=== PATIENT | female | born 1965 | race Caucasian/White ===

== ENCOUNTER 2019-03-26 17:59 | Emergency (ER) | payer MEDICAID ==
--- NOTE | 2019-03-26 18:27 | EDM.PDOC ---
ED HPI GENERAL MEDICAL PROBLEM - General Chief Complaint: Skin Complaint Stated Complaint: FALL- SENT BY [facility] Time Seen by Provider: 03/26/19 18:16 - History of Present Illness INITIAL COMMENTS - FREE TEXT/NARRATIVE: 53-year-old patient sent over from the [facility] with concerns of an abscess developing again over her left elbow in the area of the olecranon bursa. Patient has been developing this over the last couple of weeks. She is using her elbow without difficulty normal flexion extension and supination pronation. She has not had any significant warmth or redness to the area but has noticed increased swelling. She had an abscessed bursa in this area this last December that was I&Ded by Dr. Tadeo. At that point it was much bigger developed much quicker she had significant redness and warmth over the area according to the patient. The patient was seen over at the [facility] surgery clinic by Estela Hayes NP who thought it might be a recurrence of the abscess and requested we take a look at it as she did not have any help at the surgery clinic. The case was discussed with myself and with Dr. Damian our on-call surgeon. The patient presented to the emergency room but it took her some time to get here from the [facility] as the patient did fall and bump her knees she had x- ray evaluation and is not having any problems with this. Left Elbow Pain Score (Numeric/FACES): 7 - Related Data Allergies Allergy/AdvReac Type Severity Reaction Status Date / Time amoxicillin [From Augmentin] Allergy Rash Verified 03/26/19 18:16 castor oil Allergy Anaphylactic Verified 03/26/19 18:16 Shock clavulanic acid Allergy Rash Verified 03/26/19 18:16 [From Augmentin] levofloxacin [From Levaquin] Allergy Rash Verified 03/26/19 18:16 losartan Allergy Rash Verified 03/26/19 18:16 Penicillins Allergy Rash Verified 03/26/19 18:16 povidone-iodine Allergy Cannot Verified 03/26/19 18:16 Remember warfarin [From Coumadin] Allergy Rash Verified 03/26/19 18:16 Home Meds: Home Meds Acetaminophen [Tylenol Extra Strength] 500 mg PO Q6H PRN 03/26/19 [History] Acetaminophen [Tylenol] 325 mg PO Q4H PRN 03/26/19 [History] Cetirizine [ZyrTEC] 10 mg PO DAILY 03/26/19 [History] Clotrimazole [Clotrimazole 1%] 1 applic TOP DAILY 03/26/19 [History] Ferrous Fumarate/Vitamin C [Vitron-C] 1 tab PO DAILY 03/26/19 [History] Fluticasone Propionate [Flonase] 1 spray LINCOLN BID PRN 03/26/19 [History] Furosemide [Lasix] 40 mg PO BID 03/26/19 [History] Metoprolol Succinate [Toprol Xl] 50 mg PO DAILY 03/26/19 [History] Naproxen [Naprosyn] 500 mg PO Q12H #14 tablet 03/26/19 [Rx] Nystatin [Nyata] 1 applic TOP DAILY 03/26/19 [History] Pantoprazole [ProTONIX] 40 mg PO DAILY 03/26/19 [History] Phenylephrine HCl [Suphedrine PE] 10 mg PO DAILY 03/26/19 [History] Potassium Chloride 20 meq PO DAILY 03/26/19 [History] Ranitidine [Zantac] 150 mg PO DAILY 03/26/19 [History] Spironolactone [Aldactone] 100 mg PO DAILY 03/26/19 [History] amLODIPine [Norvasc] 10 mg PO DAILY 03/26/19 [History] traMADol HCl [Tramadol HCl] 50 mg PO TID PRN 03/26/19 [History] Past Medical History HEENT History: Reports: Impaired Vision Cardiovascular History: Reports: Hypertension Respiratory History: Reports: Other (See Below) Other Respiratory History: lung cancer Gastrointestinal History: Reports: GERD Genitourinary History: Reports: Other (See Below) Other Genitourinary History: ovarian cancer Musculoskeletal History: Reports: Arthritis Oncologic (Cancer) History: Reports: Lung, Ovarian Dermatologic History: Reports: Venous Stasis Dermatitis Social & Family History - Tobacco Use Smoking Status *Q: Never Smoker - Caffeine Use Caffeine Use: Reports: Soda - Recreational Drug Use Recreational Drug Use: No ED ROS GENERAL - Review of Systems Review Of Systems: See Below Constitutional: Reports: No Symptoms. Denies: Fever, Chills Respiratory: Reports: No Symptoms Cardiovascular: Reports: No Symptoms GI/Abdominal: Reports: No Symptoms : Reports: No Symptoms ED EXAM, SKIN/RASH Exam: See Below General Appearance: Alert, No Apparent Distress Head: Atraumatic, Normocephalic Neck: Normal Inspection, Supple, Non-Tender, Full Range of Motion Respiratory/Chest: No Respiratory Distress, Lungs Clear, Normal Breath Sounds Cardiovascular: Regular Rate, Rhythm, No Murmur Extremities: Other (Examination of her left elbow shows good nontender full flexion and extension of the elbow joint supination and pronation is normal she has a soft tissue swelling on the posterior proximal aspect that may involve the olecranon bursa. Palpation of the area does not reveal much warmth minimal redness she's got an area of irritation at the distal prior incision site the patient denies much drainage from there. Upon my palpation palpates very much like a seroma. There may be a septation along the course of the prior incision) Course - Vital Signs Last Recorded V/S: Last Vital Signs Temp 36.8 C 03/26/19 18:08 Pulse 76 03/26/19 18:08 Resp 22 H 03/26/19 18:08 BP 165/92 H 03/26/19 18:08 Pulse Ox 100 03/26/19 18:08 - Re-Assessments/Exams Free Text/Narrative Re-Assessment/Exam: 03/26/19 19:05 X-rays from [facility] reviewed. Upon my evaluation I'm not convinced this is an abscess. Did consider a brief needle aspirate however this is olecranon bursa that can increase the risk of infection about that time Dr. Damian did come by the emergency room and looked at this and is certain this is a seroma and recommends conservative treatment. I did discuss this with the patient and she is comfortable with this and agrees to return immediately to the emergency room if this gets worse she develops any fevers this developed significant redness or warmth to the area. We applied a loose fitting Aleks wrap to the area for gentle pressure and the patient will adjust this as needed. Departure - Departure Time of Disposition: 18:47 Disposition: Home, Self-Care 01 Clinical Impression: Seroma - Discharge Information Prescriptions: Naproxen [Naprosyn] 500 mg PO Q12H #14 tablet Referrals: Francy Kam MD [Primary Care Provider] - Forms: ED Department Discharge Additional Instructions: Return to emergency room if any questions or problems. Return if this is getting worse or if you develop fevers or if you develop significant redness in the area. Take the Naprosyn one twice daily with your morning and evening meal. Follow-up with your regular provider early next week for recheck. Apply gentle pressure to the area with the Aleks wrap. Keep a Band-Aid over the irritated area.
[2019-03-26] MEDS ORDERED: Naproxen 500 MG Tab PO STA (18:50)
== END 2019-03-26 19:00 | disposition home or self-care (01) ==
LOC: JD.ED 17:59
DX: L76.34 Postprocedural seroma of skin and subcutaneous tissue following other procedure (principal); I10 Essential (primary) hypertension; K21.9 Gastro-esophageal reflux disease without esophagitis; Z88.1 Allergy status to other antibiotic agents; Z91.018 Allergy to other foods; Z88.0 Allergy status to penicillin; Z88.8 Allergy status to other drugs, medicaments and biological substances; Z79.899 Other long term (current) drug therapy
CPT/HCPCS: 99283; A9270

== ENCOUNTER 2020-06-30 14:00 | Emergency (ER) | payer MEDICARE, MEDICAID ==
--- NOTE | 2020-06-30 15:14 | EDM.PDOC ---
ED HPI GENERAL MEDICAL PROBLEM - General Chief Complaint: Allergic Reaction Stated Complaint: POSS ALLERGIC REACTION/L LEG SKIN COMPLAINT Time Seen by Provider: 06/30/20 15:14 - History of Present Illness INITIAL COMMENTS - FREE TEXT/NARRATIVE: 54-year-old female presents the emergency room with rash suspected to be secondary to an antibiotic she is taking. Patient is taking Bactrim for cellulitis in her left lower leg. Cellulitis starting to improve but was slow to improve on the Bactrim. For today's day 10 of the antibiotics. Today she awoke and was covered with a rash this was not a urticarial rash but more of a fixed rash. It does not seem to itch a whole lot or cause her any distress she is not having any pain per se anywhere just her cellulitis is not getting any better. Having any chills she is not having any breathing difficulties or shortness of breath. She is just has the rash and a cellulitis that is slow to improve. The patient is about 10 years cancer free after chemo. During this time she did develop a left knee infection after deteriorating her left knee. It was determined she would not be a candidate for left knee replacement she has had a lot of problems with this leg ever since. Left Leg Pain Score (Numeric/FACES): 5 - Related Data Allergies Allergy/AdvReac Type Severity Reaction Status Date / Time amoxicillin [From Augmentin] Allergy Severe Rash Verified 06/30/20 14:18 castor oil Allergy Severe Anaphylactic Verified 06/30/20 14:18 Shock clavulanic acid Allergy Severe Rash Verified 06/30/20 14:18 [From Augmentin] levofloxacin [From Levaquin] Allergy Severe Rash Verified 06/30/20 14:18 losartan Allergy Severe Rash Verified 06/30/20 14:18 Penicillins Allergy Severe Rash Verified 06/30/20 14:18 povidone-iodine Allergy Severe Cannot Verified 06/30/20 14:18 Remember sulfamethoxazole Allergy Severe Rash Verified 06/30/20 14:18 [From Bactrim] trimethoprim [From Bactrim] Allergy Severe Rash Verified 06/30/20 14:18 warfarin [From Coumadin] Allergy Severe Rash Verified 06/30/20 14:18 Home Meds: Home Meds Acetaminophen [Tylenol Extra Strength] 500 mg PO Q6H PRN 03/26/19 [History] Acetaminophen [Tylenol] 325 mg PO Q4H PRN 03/26/19 [History] Cetirizine [ZyrTEC] 10 mg PO DAILY 03/26/19 [History] Clotrimazole [Clotrimazole 1%] 1 applic TOP DAILY 03/26/19 [History] Ferrous Fumarate/Vitamin C [Vitron-C] 1 tab PO DAILY 03/26/19 [History] Fluticasone Propionate [Flonase] 1 spray LINCOLN BID PRN 03/26/19 [History] Furosemide [Lasix] 40 mg PO BID 03/26/19 [History] Metoprolol Succinate [Toprol Xl] 50 mg PO DAILY 03/26/19 [History] Naproxen [Naprosyn] 500 mg PO Q12H #14 tablet 03/26/19 [Rx] Nystatin [Nyata] 1 applic TOP DAILY 03/26/19 [History] Pantoprazole [ProTONIX] 40 mg PO DAILY 03/26/19 [History] Phenylephrine HCl [Suphedrine PE] 10 mg PO DAILY 03/26/19 [History] Potassium Chloride 20 meq PO DAILY 03/26/19 [History] Ranitidine [Zantac] 150 mg PO DAILY 03/26/19 [History] Spironolactone [Aldactone] 100 mg PO DAILY 03/26/19 [History] amLODIPine [Norvasc] 10 mg PO DAILY 03/26/19 [History] traMADol HCl [Tramadol HCl] 50 mg PO TID PRN 03/26/19 [History] Clindamycin HCl 300 mg PO Q6H #40 capsule 06/30/20 [Rx] Famotidine [Pepcid] 20 mg PO Q12H #24 tablet 06/30/20 [Rx] Past Medical History HEENT History: Reports: Impaired Vision Cardiovascular History: Reports: Hypertension Respiratory History: Reports: Other (See Below) Other Respiratory History: lung cancer-nodules benign Gastrointestinal History: Reports: GERD Genitourinary History: Reports: Other (See Below) Other Genitourinary History: ovarian cancer Musculoskeletal History: Reports: Arthritis Oncologic (Cancer) History: Reports: Lung, Ovarian Other Oncologic History: had chemo for ovarian cancer Dermatologic History: Reports: Venous Stasis Dermatitis Social & Family History - Tobacco Use Smoking Status *Q: Never Smoker - Caffeine Use Caffeine Use: Reports: Coffee, Soda - Recreational Drug Use Recreational Drug Use: No ED ROS ALLERGIC REACTION - Review of Systems Review Of Systems: See Below Constitutional: Reports: No Symptoms HEENT: Reports: No Symptoms Respiratory: Reports: No Symptoms Cardiovascular: Reports: No Symptoms Endocrine: Reports: No Symptoms GI/Abdominal: Reports: No Symptoms Musculoskeletal: Reports: Other (See history of present illness) Skin: Reports: Other (See history of present illness) Neurological: Reports: No Symptoms ED EXAM GENERAL NO PERIP PULSE - Physical Exam Exam: See Below Exam Limited By: No Limitations General Appearance: Obese Head: Atraumatic, Normocephalic Neck: Normal Inspection, Supple, Non-Tender, Full Range of Motion Respiratory/Chest: No Respiratory Distress, Lungs Clear, Normal Breath Sounds Cardiovascular: Regular Rate, Rhythm, No Edema, No Murmur Back Exam: Normal Inspection. No: CVA Tenderness (L), CVA Tenderness (R) Extremities: Normal Inspection, Other (Swelling in the left lower extremity she has a marked cellulitis with redness up to the level of the knee that is warm. She has had swelling in this leg ever since her knee injury and subsequent osteomyelitis in this leg because of the osteomyelitis she was not eligible for knee replacement) Psychiatric: Normal Affect, Normal Mood Skin Exam: Other (No blistering rash she has a cellulitic condition involving her left lower leg from the level of the knee on down) Course - Vital Signs Last Recorded V/S: Last Vital Signs Temp 37.3 C 06/30/20 14:23 Pulse 88 06/30/20 14:23 Resp 20 06/30/20 14:23 BP 157/82 H 06/30/20 14:23 Pulse Ox 97 06/30/20 14:23 - Orders/Labs/Meds Orders: Active Orders 24 hr Category Date Time Status CORONAVIRUS COVID-19 PIERRE [[facility]] Stat Lab 06/30/20 17:46 Ordered Labs: Laboratory Tests 06/30/20 06/30/20 06/30/20 Range/Units 15:29 15:29 15:29 WBC 9.77 (3.98-10.04) K/mm3 RBC 4.02 (3.98-5.22) M/mm3 Hgb 11.5 (11.2-15.7) gm/dl Hct 37.5 (34.1-44.9) % MCV 93.3 (79.4-94.8) fl MCH 28.6 (25.6-32.2) pg MCHC 30.7 L (32.2-35.5) g/dl RDW Std Deviation 52.6 H (36.4-46.3) fL Plt Count 461 H (182-369) K/mm3 MPV 8.7 L (9.4-12.3) fl Neutrophils % (Manual) 86 H (40-60) % Band Neutrophils % 0 (0-10) % Lymphocytes % (Manual) 11 L (20-40) % Atypical Lymphs % 0 % Monocytes % (Manual) 1 L (2-10) % Eosinophils % (Manual) 2 (0.7-5.8) % Basophils % (Manual) 0 L (0.1-1.2) Platelet Estimate Adequate Plt Morphology Comment Normal RBC Morph Comment Normal ESR 86 H (0-20) mm/hr Sodium 133 L (136-145) mEq/L Potassium 4.8 (3.5-5.1) mEq/L Chloride 99 (98-107) mEq/L Carbon Dioxide 25 (21-32) mEq/L Anion Gap 13.8 (5-15) BUN 35 H (7-18) mg/dL Creatinine 1.5 H (0.55-1.02) mg/dL Est Cr Clr Drug Dosing 39.20 mL/min Estimated GFR (MDRD) 36 (>60) mL/min BUN/Creatinine Ratio 23.3 H (14-18) Glucose 95 (74-106) mg/dL Calcium 9.4 (8.5-10.1) mg/dL Total Bilirubin 0.2 (0.2-1.0) mg/dL AST 41 H (15-37) U/L ALT 57 (14-59) U/L Alkaline Phosphatase 259 H (46-116) U/L C-Reactive Protein (<1.0) mg/dL Total Protein 8.0 (6.4-8.2) g/dl Albumin 3.0 L (3.4-5.0) g/dl Globulin 5.0 gm/dL Albumin/Globulin Ratio 0.6 L (1-2) 08/28/20 Range/Units 15:29 WBC (3.98-10.04) K/mm3 RBC (3.98-5.22) M/mm3 Hgb (11.2-15.7) gm/dl Hct (34.1-44.9) % MCV (79.4-94.8) fl MCH (25.6-32.2) pg MCHC (32.2-35.5) g/dl RDW Std Deviation (36.4-46.3) fL Plt Count (182-369) K/mm3 MPV (9.4-12.3) fl Neutrophils % (Manual) (40-60) % Band Neutrophils % (0-10) % Lymphocytes % (Manual) (20-40) % Atypical Lymphs % % Monocytes % (Manual) (2-10) % Eosinophils % (Manual) (0.7-5.8) % Basophils % (Manual) (0.1-1.2) Platelet Estimate Plt Morphology Comment RBC Morph Comment ESR (0-20) mm/hr Sodium (136-145) mEq/L Potassium (3.5-5.1) mEq/L Chloride (98-107) mEq/L Carbon Dioxide (21-32) mEq/L Anion Gap (5-15) BUN (7-18) mg/dL Creatinine (0.55-1.02) mg/dL Est Cr Clr Drug Dosing mL/min Estimated GFR (MDRD) (>60) mL/min BUN/Creatinine Ratio (14-18) Glucose (74-106) mg/dL Calcium (8.5-10.1) mg/dL Total Bilirubin (0.2-1.0) mg/dL AST (15-37) U/L ALT (14-59) U/L Alkaline Phosphatase (46-116) U/L C-Reactive Protein 4.8 H* (<1.0) mg/dL Total Protein (6.4-8.2) g/dl Albumin (3.4-5.0) g/dl Globulin gm/dL Albumin/Globulin Ratio (1-2) Meds: Medications Discontinued Medications Generic Name Dose Route Start Last Admin Trade Name Freq PRN Reason Stop Dose Admin Clindamycin HCl 300 mg 06/30/20 17:22 06/30/20 17:52 Cleocin PO 06/30/20 17:23 Not Given ONETIME ONE Clindamycin HCl 300 mg 06/30/20 18:20 06/30/20 18:43 Cleocin PO 06/30/20 18:21 300 mg ONETIME ONE Administration Famotidine 40 mg 06/30/20 15:20 06/30/20 16:00 Pepcid PO 06/30/20 15:21 40 mg ONETIME ONE Administration - Re-Assessments/Exams Free Text/Narrative Re-Assessment/Exam: 06/30/20 17:42 And the patient status she is failed outpatient antibiotics with really no improvement. And had a reaction to the antibiotics it looks like as well. I think the best option for this patient is to be admitted for IV antibiotics. I discussed the situation with Dr. Núñez, orthopedic surgeon at [facility] in [place]. Discussed the elevated inflammatory markers. The patient does have a history of osteomyelitis in this knee. However she is not having any increased pain with ambulation so I do not believe this is involved with this case. Dr. Núñez recommends inpatient IV antibiotics as with her body habitus she will get adequate tissue levels with oral medication. I did call Dr. Swenson, our hospitalist and she will come down to the department to evaluate the patient 06/30/20 18:26 She now decides that she wants to go back to her assisted living center I explained to her that this is not can provide optimal therapy for her but she wants to give it a try anyway. I will discharge her on clindamycin 300 mg 4 times a day and famotidine 20 mg twice daily Departure - Departure Time of Disposition: 17:41 Disposition: Home, Self-Care 01 Clinical Impression: Left leg cellulitis - Discharge Information Prescriptions: Clindamycin HCl 300 mg PO Q6H #40 capsule Famotidine [Pepcid] 20 mg PO Q12H #24 tablet Instructions: Cellulitis, Adult Referrals: Francy Kam MD [Primary Care Provider] - Forms: ED Department Discharge Additional Instructions: Return to the emergency room with any questions problems or worsening symptoms. Do understand the left the hospital where you are offered more optimal treatment as we discussed IV antibiotics agrees to do better tissue levels then oral antibiotics and you have already failed 1 round of oral antibiotics for improvement of the cellulitis. You have been started on clindamycin 300 mg 4 times a day for 10 days. Take as directed. With your multiple allergies you have been started on famotidine 20 mg twice daily he will take this for a couple days after you are done with the antibiotics. Sepsis Event Note (ED) - Evaluation Sepsis Screening Result: No Definite Risk - Focused Exam Vital Signs: Vital Signs Temp Pulse Resp BP Pulse Ox 06/30/20 14:23 37.3 C 88 20 157/82 H 97 - My Orders Last 24 Hours: My Active Orders 06/30/20 17:46 CORONAVIRUS COVID-19 PIERRE [[facility]] Stat - Assessment/Plan Last 24 Hours: My Active Orders 06/30/20 17:46 CORONAVIRUS COVID-19 PIERRE [MOLEC] Stat
[2020-06-30] MEDS ORDERED: Famotidine 20 MG Tab PO ONE (15:20)
--- NOTE | 2020-06-30 16:19 | CR ---
Left knee: 4 views left knee were obtained. Knee deformity is noted. Degenerative change is noted within the medial compartment. There is depression of the medial tibial plateau and uncertain if this is acute or chronic. Osteoporosis is noted. Spurring is noted within the patellofemoral joint. Questionable erosion off the edge of the medial tibial plateau and within the adjacent femoral condyle. Impression: 1. Knee deformity. 2. Depression of the medial tibial plateau, uncertain if this is acute or chronic. 3. Osteoporosis and degenerative change. 4. Questionable erosions within the medial joint and difficult to exclude osteomyelitis. Diagnostic code #3 This report was dictated in [facility]
--- NOTE | 2020-06-30 16:21 | CR ---
Left tibia and fibula: 2 views left tibia and fibula were obtained. Changes within the left knee noted as described on knee exam. Bony structures are osteopenic. No discrete fracture or other abnormality is appreciated. Impression: 1. Changes within the left knee as described on the exam. 2. Left tibia and fibula study is otherwise unremarkable. Diagnostic code #3 This report was dictated in MDT
[2020-06-30] MEDS ORDERED: Clindamycin HCl 150 MG Cap PO ONE ×2 (17:22→18:20)
== END 2020-06-30 18:45 | disposition home or self-care (01) ==
LOC: JD.ED 14:00
DX: L03.116 Cellulitis of left lower limb (principal); I10 Essential (primary) hypertension; K21.9 Gastro-esophageal reflux disease without esophagitis; Z88.1 Allergy status to other antibiotic agents; Z91.018 Allergy to other foods; Z88.8 Allergy status to other drugs, medicaments and biological substances; Z88.0 Allergy status to penicillin; Z91.048 Other nonmedicinal substance allergy status; Z88.2 Allergy status to sulfonamides; Z79.899 Other long term (current) drug therapy
CPT/HCPCS: 36415; 73564; 73590; 80053; 85007; 85027; 85652; 86140; 99283; A9270

== ENCOUNTER 2020-07-03 11:35 | Inpatient (IN) | payer MEDICARE, MEDICAID ==
--- NOTE | 2020-07-03 12:16 | EDM.PDOC ---
ED HPI GENERAL MEDICAL PROBLEM - General Chief Complaint: Skin Complaint Stated Complaint: L LEG SKIN COMPLAINT Time Seen by Provider: 07/03/20 11:48 Source of Information: Reports: Patient, Old Records History Limitations: Reports: No Limitations - History of Present Illness INITIAL COMMENTS - FREE TEXT/NARRATIVE: Patient is a 54-year-old female presented to the emergency department with complaints of cellulitis to her left lower leg. She was seen in the clinic by general surgeon, Dr. Worley, and she recommended admission to the hospital for IV antibiotic therapy. She had previously been treated with Bactrim, however developed a reaction to this. She was seen in our emergency department this last Friday for the same complaint. Admission was recommended at that time, however she declined. She was discharged home on clindamycin, however her cellulitis is worsening. She states that the symptoms began sometime last week, however she is unsure exactly what day. She denies any fever, chills, nausea, vomiting, or diarrhea. She denies any pain in the joint of the left knee. Left Lower Leg Pain Score (Numeric/FACES): 3 - Related Data Allergies Allergy/AdvReac Type Severity Reaction Status Date / Time castor oil Allergy Severe Anaphylactic Verified 06/30/20 14:18 Shock amoxicillin [From Augmentin] Allergy Intermediate Rash Verified 07/03/20 15:10 clavulanic acid Allergy Intermediate Rash Verified 07/03/20 15:10 [From Augmentin] levofloxacin [From Levaquin] Allergy Intermediate Rash Verified 07/03/20 15:10 losartan Allergy Intermediate Rash Verified 07/03/20 15:10 Penicillins Allergy Intermediate Rash Verified 07/03/20 15:10 sulfamethoxazole Allergy Intermediate Rash Verified 07/03/20 15:10 [From Bactrim] trimethoprim [From Bactrim] Allergy Intermediate Rash Verified 07/03/20 15:10 warfarin [From Coumadin] Allergy Intermediate Rash Verified 07/03/20 15:10 povidone-iodine Allergy Mild Cannot Verified 07/03/20 15:10 Remember Home Meds: Home Meds Acetaminophen [Tylenol] 325 mg PO DAILY PRN 03/26/19 [History] Metoprolol Succinate [Toprol Xl] 50 mg PO DAILY 03/26/19 [History] Pantoprazole [ProTONIX] 40 mg PO DAILY 03/26/19 [History] Potassium Chloride 20 meq PO DAILY 03/26/19 [History] Spironolactone [Aldactone] 100 mg PO DAILY 03/26/19 [History] amLODIPine [Norvasc] 10 mg PO DAILY 03/26/19 [History] traMADol HCl [Tramadol HCl] 50 mg PO TID PRN 03/26/19 [History] Clindamycin HCl 300 mg PO Q6H #40 capsule 06/30/20 [Rx] Famotidine [Pepcid] 20 mg PO Q12H #24 tablet 06/30/20 [Rx] Furosemide [Lasix] 40 mg PO BID 07/03/20 [History] Past Medical History HEENT History: Reports: Impaired Vision Cardiovascular History: Reports: Hypertension Respiratory History: Reports: Other (See Below) Other Respiratory History: lung cancer-nodules benign Gastrointestinal History: Reports: GERD Genitourinary History: Reports: Other (See Below) Other Genitourinary History: ovarian cancer Musculoskeletal History: Reports: Arthritis Oncologic (Cancer) History: Reports: Lung, Ovarian Other Oncologic History: had chemo for ovarian cancer Dermatologic History: Reports: Cellulitis, Venous Stasis Dermatitis Social & Family History - Tobacco Use Smoking Status *Q: Never Smoker - Caffeine Use Caffeine Use: Reports: Soda Other Caffeine Use: coke - Recreational Drug Use Recreational Drug Use: No ED ROS GENERAL - Review of Systems Review Of Systems: See Below Constitutional: Reports: No Symptoms. Denies: Fever, Chills, Weakness HEENT: Reports: No Symptoms Respiratory: Reports: No Symptoms. Denies: Shortness of Breath, Cough Cardiovascular: Reports: No Symptoms. Denies: Chest Pain Endocrine: Reports: No Symptoms GI/Abdominal: Reports: No Symptoms : Reports: No Symptoms Musculoskeletal: Reports: No Symptoms Skin: Reports: Other (redness, warmth, and swelling to left lower extremity. ) Neurological: Reports: No Symptoms Psychiatric: Reports: No Symptoms Hematologic/Lymphatic: Reports: No Symptoms Immunologic: Reports: No Symptoms ED EXAM, SKIN/RASH Exam: See Below Exam Limited By: No Limitations General Appearance: Alert, WD/WN, No Apparent Distress Respiratory/Chest: No Respiratory Distress, Lungs Clear, Normal Breath Sounds, No Accessory Muscle Use, Chest Non-Tender Cardiovascular: Normal Peripheral Pulses, Regular Rate, Rhythm, No Edema, No Gallop, No JVD, No Murmur, No Rub Extremities: Other (redness, warmth, and edema with numerous small fluid filled blisters to the LLE extending from the level of the knee to the ankle. Area is tender to palpation.) Neurological: Alert, Oriented, CN II-XII Intact, Normal Cognition, Normal Gait, Normal Reflexes, No Motor/Sensory Deficits Psychiatric: Normal Affect, Normal Mood Course - Vital Signs Last Recorded V/S: Last Vital Signs Temp 97.9 F 07/03/20 19:36 Pulse 78 07/03/20 19:36 Resp 14 07/03/20 19:36 BP 158/85 H 07/03/20 19:36 Pulse Ox 98 07/03/20 19:36 - Orders/Labs/Meds Orders: Active Orders 24 hr Category Date Time Status CULTURE BLOOD [BC] Stat Lab 07/03/20 12:30 Received CULTURE BLOOD [BC] Stat Lab 07/03/20 12:45 Received PROCALCITONIN [REF] Stat Lab 07/03/20 12:30 Received Sodium Chloride 0.9% [Saline Flush] Med 07/03/20 11:49 Active 10 ml FLUSH ASDIRECTED PRN Blood Culture x2 Reflex Set [OM.PC] Stat Oth 07/03/20 11:50 Ordered Peripheral IV Insertion Adult [OM.PC] Stat Oth 07/03/20 11:49 Ordered Medication Orders Acetaminophen (Tylenol) 650 mg PO Q4H PRN PRN Reason: Pain (Mild 1-3)/fever Amlodipine Besylate (Norvasc) 10 mg PO DAILY [facility] Enoxaparin Sodium (Lovenox) 40 mg SUBCUT Q24H [facility] Last Admin: 07/03/20 17:27 Dose: 40 mg Documented by: MARIANELA Famotidine (Pepcid) 20 mg PO BID [facility] Last Admin: 07/03/20 21:06 Dose: 20 mg Documented by: [id number] Doxycycline Hyclate 100 mg/ (Sodium Chloride) 100 mls @ 100 mls/hr IV Q12HR [facility] Last Admin: 07/03/20 21:07 Dose: 100 mls/hr Documented by: [id number] Lactated Ringer's (Ringers, Lactated) 1,000 mls @ 100 mls/hr IV ASDIRECTED [facility] Stop: 07/04/20 00:44 Last Admin: 07/03/20 16:25 Dose: 100 mls/hr Documented by: MARIANELA Ketorolac Tromethamine (Toradol) 30 mg IV Q6H PRN PRN Reason: Pain (moderate 4-6) Last Admin: 07/03/20 19:51 Dose: 30 mg Documented by: MARIANELA Loratadine (Claritin) 10 mg PO DAILY [facility] Metoprolol Succinate (Toprol Xl) 50 mg PO DAILY [facility] Ondansetron HCl (Zofran) 4 mg IV Q6H PRN PRN Reason: Nausea/Vomiting Sodium Chloride (Saline Flush) 10 ml FLUSH ASDIRECTED PRN PRN Reason: Keep Vein Open Last Admin: 07/03/20 12:51 Dose: 10 ml Documented by: NICKY Spironolactone (Aldactone) 100 mg PO DAILY [facility] Labs: Laboratory Tests 07/03/20 07/03/20 07/03/20 Range/Units 12:30 12:30 12:30 WBC 5.81 (3.98-10.04) K/mm3 RBC 4.16 (3.98-5.22) M/mm3 Hgb 11.8 (11.2-15.7) gm/dl Hct 38.3 (34.1-44.9) % MCV 92.1 (79.4-94.8) fl MCH 28.4 (25.6-32.2) pg MCHC 30.8 L (32.2-35.5) g/dl RDW Std Deviation 52.4 H (36.4-46.3) fL Plt Count 397 H (182-369) K/mm3 MPV 9.1 L (9.4-12.3) fl Neut % (Auto) 66.8 (34.0-71.1) % Lymph % (Auto) 14.5 L (19.3-51.7) % [place] % (Auto) 11.7 (4.7-12.5) % Eos % (Auto) 6.2 H (0.7-5.8) Baso % (Auto) 0.5 (0.1-1.2) % Neut # (Auto) 3.88 (1.56-6.13) K/mm3 Lymph # (Auto) 0.84 L (1.18-3.74) K/mm3 [place] # (Auto) 0.68 H (0.24-0.36) K/mm3 Eos # (Auto) 0.36 (0.04-0.36) K/mm3 Baso # (Auto) 0.03 (0.01-0.08) K/mm3 Sodium 134 L (136-145) mEq/L Potassium 4.0 (3.5-5.1) mEq/L Chloride 99 (98-107) mEq/L Carbon Dioxide 25 (21-32) mEq/L Anion Gap 14.0 (5-15) BUN 37 H (7-18) mg/dL Creatinine 1.3 H (0.55-1.02) mg/dL Est Cr Clr Drug Dosing 45.23 mL/min Estimated GFR (MDRD) 42 (>60) mL/min BUN/Creatinine Ratio 28.5 H (14-18) Glucose 94 (74-106) mg/dL Lactic Acid 1.2 (0.4-2.0) mmol/L Calcium 9.4 (8.5-10.1) mg/dL Total Bilirubin 0.2 (0.2-1.0) mg/dL AST 33 (15-37) U/L ALT 49 (14-59) U/L Alkaline Phosphatase 239 H (46-116) U/L C-Reactive Protein 3.1 H* (<1.0) mg/dL Total Protein 8.0 (6.4-8.2) g/dl Albumin 2.9 L (3.4-5.0) g/dl Globulin 5.1 gm/dL Albumin/Globulin Ratio 0.6 L (1-2) COVID-19 (PIERRE) (NEGATIVE) 07/03/20 Range/Units 12:49 WBC (3.98-10.04) K/mm3 RBC (3.98-5.22) M/mm3 Hgb (11.2-15.7) gm/dl Hct (34.1-44.9) % MCV (79.4-94.8) fl MCH (25.6-32.2) pg MCHC (32.2-35.5) g/dl RDW Std Deviation (36.4-46.3) fL Plt Count (182-369) K/mm3 MPV (9.4-12.3) fl Neut % (Auto) (34.0-71.1) % Lymph % (Auto) (19.3-51.7) % [place] % (Auto) (4.7-12.5) % Eos % (Auto) (0.7-5.8) Baso % (Auto) (0.1-1.2) % Neut # (Auto) (1.56-6.13) K/mm3 Lymph # (Auto) (1.18-3.74) K/mm3 [place] # (Auto) (0.24-0.36) K/mm3 Eos # (Auto) (0.04-0.36) K/mm3 Baso # (Auto) (0.01-0.08) K/mm3 Sodium (136-145) mEq/L Potassium (3.5-5.1) mEq/L Chloride (98-107) mEq/L Carbon Dioxide (21-32) mEq/L Anion Gap (5-15) BUN (7-18) mg/dL Creatinine (0.55-1.02) mg/dL Est Cr Clr Drug Dosing mL/min Estimated GFR (MDRD) (>60) mL/min BUN/Creatinine Ratio (14-18) Glucose (74-106) mg/dL Lactic Acid (0.4-2.0) mmol/L Calcium (8.5-10.1) mg/dL Total Bilirubin (0.2-1.0) mg/dL AST (15-37) U/L ALT (14-59) U/L Alkaline Phosphatase (46-116) U/L C-Reactive Protein (<1.0) mg/dL Total Protein (6.4-8.2) g/dl Albumin (3.4-5.0) g/dl Globulin gm/dL Albumin/Globulin Ratio (1-2) COVID-19 (PIERRE) Negative (NEGATIVE) Meds: Medications Generic Name Dose Route Start Last Admin Trade Name Freq PRN Reason Stop Dose Admin Acetaminophen 650 mg 07/03/20 14:31 Tylenol PO Q4H PRN Pain (Mild 1-3)/fever Amlodipine Besylate 10 mg 07/04/20 09:00 Norvasc PO DAILY MAGALI Enoxaparin Sodium 40 mg 07/03/20 18:00 07/03/20 17:27 Lovenox SUBCUT 40 mg Q24H MAGALI Administration Famotidine 20 mg 07/03/20 21:00 07/03/20 21:06 Pepcid PO 20 mg BID MAGALI Administration Doxycycline Hyclate 100 mg/ 100 mls @ 100 mls/hr 07/03/20 21:00 07/03/20 21:07 Sodium Chloride IV 100 mls/hr Q12HR MAGALI Administration Lactated Ringer's 1,000 mls @ 100 mls/hr 07/03/20 14:45 07/03/20 16:25 Ringers, Lactated IV 07/04/20 00:44 100 mls/hr ASDIRECTED MAGALI Administration Ketorolac Tromethamine 30 mg 07/03/20 14:31 07/03/20 19:51 Toradol IV 30 mg Q6H PRN Administration Pain (moderate 4-6) Loratadine 10 mg 07/04/20 09:00 Claritin PO DAILY [facility] Metoprolol Succinate 50 mg 07/04/20 09:00 Toprol Xl PO DAILY [facility] Ondansetron HCl 4 mg 07/03/20 14:31 Zofran IV Q6H PRN Nausea/Vomiting Sodium Chloride 10 ml 07/03/20 11:49 07/03/20 12:51 Saline Flush FLUSH 10 ml ASDIRECTED PRN Administration Keep Vein Open Spironolactone 100 mg 07/04/20 09:00 Aldactone PO DAILY [facility] Discontinued Medications Generic Name Dose Route Start Last Admin Trade Name Freq PRN Reason Stop Dose Admin Vancomycin HCl 1.75 gm/ Sodium 500 mls @ 250 mls/hr 07/03/20 14:00 07/03/20 13:26 Chloride IV 07/03/20 15:59 250 mls/hr ONETIME ONE Administration Vancomycin HCl 1 gm/ 500 mls @ 250 mls/hr 07/04/20 02:00 Vancomycin HCl 500 mg/ Sodium IV Chloride Q12H [facility] Ketorolac Tromethamine 30 mg 07/03/20 14:17 07/03/20 14:35 Toradol IVPUSH 07/03/20 14:18 30 mg ONETIME ONE Administration Non-Formulary Medication 10 mg 07/04/20 09:00 Cetirizine PO DAILY [facility] Vancomycin HCl 1 dose 07/03/20 13:00 Pharmacy To Dose - Vancomycin .XX ASDIRECTED PRN RX TO DOSE VANCO - Re-Assessments/Exams Free Text/Narrative Re-Assessment/Exam: 07/03/20 15:00 Hematology was significant for sodium slightly low 134, BUN 37, creatinine 1.3, alkaline phosphatase 239, CRP 3.1. COVID screen was negative. EKTA Mitchell was here to see the patient. She will be admitted to the medical surgical floor as an inpatient for cellulitis. Departure - Departure Time of Disposition: 15:00 Disposition: Admitted As Inpatient 64 Condition: Good Clinical Impression: Left leg cellulitis - Discharge Information Sepsis Event Note (ED) - Evaluation Sepsis Screening Result: No Definite Risk - Focused Exam Vital Signs: Vital Signs Temp Pulse Resp BP Pulse Ox 07/03/20 11:48 98.0 F 80 20 185/116 H 98 - My Orders Last 24 Hours: My Active Orders 07/03/20 11:49 Sodium Chloride 0.9% [Saline Flush] 10 ml FLUSH ASDIRECTED PRN Peripheral IV Insertion Adult [OM.PC] Stat 07/03/20 11:50 Blood Culture x2 Reflex Set [OM.PC] Stat 07/03/20 12:30 CULTURE BLOOD [BC] Stat 07/03/20 12:45 CULTURE BLOOD [BC] Stat - Assessment/Plan Last 24 Hours: My Active Orders 07/03/20 11:49 Sodium Chloride 0.9% [Saline Flush] 10 ml FLUSH ASDIRECTED PRN Peripheral IV Insertion Adult [OM.PC] Stat 07/03/20 11:50 Blood Culture x2 Reflex Set [OM.PC] Stat 07/03/20 12:30 CULTURE BLOOD [BC] Stat 07/03/20 12:45 CULTURE BLOOD [BC] Stat
[2020-07-03] MEDS: Sodium Chloride 0.9% 10 ML Syringe FLUSH PRN (12:51)
[2020-07-03] MEDS ORDERED: Vancomycin 1.75 GM in Sodium Chloride 0.9% 500 ML IV ONE (14:00)
--- NOTE | 2020-07-03 14:07 | PCM.HP.2 ---
H&P History of Present Illness - General Date of Service: 07/03/20 Admit Problem/Dx: Cellulitis Source of Information: Patient, Old Records, Provider, RN History Limitations: Reports: No Limitations - History of Present Illness Initial Comments - Free Text/Narative: This is a 54 old female who presents to ED after being sent here by Dr. Worley, general surgeon, who is recommending the patient be admitted for cellulitis with IV antibiotics. She lives at [place] and utilizes a walker to ambulate. Per the ED note the patient has been treated with Bactrim and the patient then developed an allergic reaction which resulted in her presenting to the ED this past Friday. At that time admission was recommended however the patient ultimately decided that she would like to try outpatient treatment 1 more time. She was then started on clindamycin. She presented back to the ED today and is noted that her cellulitis is worsening. She not exactly sure which day symptoms started occurring but she denies any fever, chills, nausea, vomiting, diarrhea. She reports that she normally has a bad left knee joint and that she would like to have a knee replacement, however she is a poor candidate due to her significant past medical history. In the ED she was afebrile. Pulse 80. Respirations 20. Blood pressure was high at 185/116. Pulse ox 98% on room air. Labs are obtained and CBC is unremarkable with no leukocytosis. Is low 134 and creatinine is elevated at 1.3 with a GFR 42. Line [place] is elevated at 239. CRP is 3.1. 19 screen is negative. She is started on vancomycin. She carries a history of impaired vision, hypertension, benign lung nodules, GERD, ovarian cancer, cellulitis, venous stasis dermatitis. She was never a smoker. Her PCP is Dr. Alvarado. Left Lower Leg Pain Score (Numeric/FACES): 3 - Related Data Allergies/Adverse Reactions: Allergies Allergy/AdvReac Type Severity Reaction Status Date / Time castor oil Allergy Severe Anaphylactic Verified 06/30/20 14:18 Shock amoxicillin [From Augmentin] Allergy Intermediate Rash Verified 07/03/20 15:10 clavulanic acid Allergy Intermediate Rash Verified 07/03/20 15:10 [From Augmentin] levofloxacin [From Levaquin] Allergy Intermediate Rash Verified 07/03/20 15:10 losartan Allergy Intermediate Rash Verified 07/03/20 15:10 Penicillins Allergy Intermediate Rash Verified 07/03/20 15:10 sulfamethoxazole Allergy Intermediate Rash Verified 07/03/20 15:10 [From Bactrim] trimethoprim [From Bactrim] Allergy Intermediate Rash Verified 07/03/20 15:10 warfarin [From Coumadin] Allergy Intermediate Rash Verified 07/03/20 15:10 povidone-iodine Allergy Mild Cannot Verified 07/03/20 15:10 Remember Home Medications: Home Meds Acetaminophen [Tylenol] 325 mg PO DAILY PRN 03/26/19 [History] Metoprolol Succinate [Toprol Xl] 50 mg PO DAILY 03/26/19 [History] Pantoprazole [ProTONIX] 40 mg PO DAILY 03/26/19 [History] Potassium Chloride 20 meq PO DAILY 03/26/19 [History] Spironolactone [Aldactone] 100 mg PO DAILY 03/26/19 [History] amLODIPine [Norvasc] 10 mg PO DAILY 03/26/19 [History] traMADol HCl [Tramadol HCl] 50 mg PO TID PRN 03/26/19 [History] Clindamycin HCl 300 mg PO Q6H #40 capsule 06/30/20 [Rx] Famotidine [Pepcid] 20 mg PO Q12H #24 tablet 06/30/20 [Rx] Furosemide [Lasix] 40 mg PO BID 07/03/20 [History] Past Medical History HEENT History: Reports: Impaired Vision Cardiovascular History: Reports: Hypertension Respiratory History: Reports: Other (See Below) Other Respiratory History: lung cancer-nodules benign Gastrointestinal History: Reports: GERD Genitourinary History: Reports: Other (See Below) Other Genitourinary History: ovarian cancer Musculoskeletal History: Reports: Arthritis Oncologic (Cancer) History: Reports: Lung, Ovarian Other Oncologic History: had chemo for ovarian cancer Dermatologic History: Reports: Cellulitis, Venous Stasis Dermatitis Social & Family History - Tobacco Use Smoking Status *Q: Never Smoker - Caffeine Use Caffeine Use: Reports: Soda Other Caffeine Use: coke - Recreational Drug Use Recreational Drug Use: No H&P Review of Systems - Review of Systems: Review Of Systems: See Below General: Reports: No Symptoms. Denies: Fever, Chills, Malaise, Weakness, Fatigue HEENT: Reports: No Symptoms. Denies: Headaches, Sore Throat Pulmonary: Reports: No Symptoms. Denies: Shortness of Breath, Wheezing, Pleuritic Chest Pain, Cough, Sputum Cardiovascular: Reports: Edema. Denies: Chest Pain, Palpitations, Dyspnea on Exertion Gastrointestinal: Reports: No Symptoms. Denies: Abdominal Pain, Constipation, Diarrhea, Nausea, Vomiting Genitourinary: Reports: No Symptoms. Denies: Pain Musculoskeletal: Reports: Joint Pain (chronic left knee). Denies: Neck Pain Skin: Reports: Erythema, Lesions. Denies: Cyanosis Psychiatric: Reports: No Symptoms. Denies: Confusion Neurological: Reports: No Symptoms, Difficulty Walking, Gait Disturbance. Denies: Confusion, Numbness, Tingling Hematologic/Lymphatic: Reports: No Symptoms Immunologic: Reports: No Symptoms Exam - Exam Exam: See Below - Vital Signs Vital Signs: Last Vital Signs Temp 98.0 F 07/03/20 11:48 Pulse 80 07/03/20 11:48 Resp 20 07/03/20 11:48 BP 185/116 H 07/03/20 11:48 Pulse Ox 98 07/03/20 11:48 Weight: 298 lb - Exam Quality Assessment: DVT Prophylaxis. No: Supplemental Oxygen General: Alert, Oriented, Cooperative. No: Mild Distress HEENT: Conjunctiva Clear, EACs Clear, Mucosa Moist & [place], Posterior Pharynx Clear Neck: Supple, Trachea Midline Lungs: Clear to Auscultation, Normal Respiratory Effort Cardiovascular: Regular Rate, Regular Rhythm GI/Abdominal Exam: Normal Bowel Sounds, Soft, Non-Tender, No Distention (Female) Exam: Deferred Rectal (Female) Exam: Deferred Back Exam: Normal Inspection, Full Range of Motion Extremities: Pedal Edema, Leg Pain, Limited Range of Motion, Increased Warmth, Redness, Other (Serosanguineous drainage with several blisters noted on left leg) Skin: Warm, Dry, Intact Neurological: Cranial Nerves Intact (grossly ) Neuro Extensive - Mental Status: Alert, Oriented x3, Normal Mood/Affect Neuro Extensive - Motor, Sensory, Reflexes: CN II-XII Intact - Patient Data Lab Results Last 24 hrs: Laboratory Results - last 24 hr 07/03/20 07/03/20 07/03/20 Range/Units 12:30 12:30 12:30 WBC 5.81 (3.98-10.04) K/mm3 RBC 4.16 (3.98-5.22) M/mm3 Hgb 11.8 (11.2-15.7) gm/dl Hct 38.3 (34.1-44.9) % MCV 92.1 (79.4-94.8) fl MCH 28.4 (25.6-32.2) pg MCHC 30.8 L (32.2-35.5) g/dl RDW Std Deviation 52.4 H (36.4-46.3) fL Plt Count 397 H (182-369) K/mm3 MPV 9.1 L (9.4-12.3) fl Neut % (Auto) 66.8 (34.0-71.1) % Lymph % (Auto) 14.5 L (19.3-51.7) % [place] % (Auto) 11.7 (4.7-12.5) % Eos % (Auto) 6.2 H (0.7-5.8) Baso % (Auto) 0.5 (0.1-1.2) % Neut # (Auto) 3.88 (1.56-6.13) K/mm3 Lymph # (Auto) 0.84 L (1.18-3.74) K/mm3 [place] # (Auto) 0.68 H (0.24-0.36) K/mm3 Eos # (Auto) 0.36 (0.04-0.36) K/mm3 Baso # (Auto) 0.03 (0.01-0.08) K/mm3 Sodium 134 L (136-145) mEq/L Potassium 4.0 (3.5-5.1) mEq/L Chloride 99 (98-107) mEq/L Carbon Dioxide 25 (21-32) mEq/L Anion Gap 14.0 (5-15) BUN 37 H (7-18) mg/dL Creatinine 1.3 H (0.55-1.02) mg/dL Est Cr Clr Drug Dosing 45.23 mL/min Estimated GFR (MDRD) 42 (>60) mL/min BUN/Creatinine Ratio 28.5 H (14-18) Glucose 94 (74-106) mg/dL Lactic Acid 1.2 (0.4-2.0) mmol/L Calcium 9.4 (8.5-10.1) mg/dL Total Bilirubin 0.2 (0.2-1.0) mg/dL AST 33 (15-37) U/L ALT 49 (14-59) U/L Alkaline Phosphatase 239 H (46-116) U/L C-Reactive Protein 3.1 H* (<1.0) mg/dL Total Protein 8.0 (6.4-8.2) g/dl Albumin 2.9 L (3.4-5.0) g/dl Globulin 5.1 gm/dL Albumin/Globulin Ratio 0.6 L (1-2) COVID-19 (PIERRE) (NEGATIVE) 07/03/20 Range/Units 12:49 WBC (3.98-10.04) K/mm3 RBC (3.98-5.22) M/mm3 Hgb (11.2-15.7) gm/dl Hct (34.1-44.9) % MCV (79.4-94.8) fl MCH (25.6-32.2) pg MCHC (32.2-35.5) g/dl RDW Std Deviation (36.4-46.3) fL Plt Count (182-369) K/mm3 MPV (9.4-12.3) fl Neut % (Auto) (34.0-71.1) % Lymph % (Auto) (19.3-51.7) % [place] % (Auto) (4.7-12.5) % Eos % (Auto) (0.7-5.8) Baso % (Auto) (0.1-1.2) % Neut # (Auto) (1.56-6.13) K/mm3 Lymph # (Auto) (1.18-3.74) K/mm3 [place] # (Auto) (0.24-0.36) K/mm3 Eos # (Auto) (0.04-0.36) K/mm3 Baso # (Auto) (0.01-0.08) K/mm3 Sodium (136-145) mEq/L Potassium (3.5-5.1) mEq/L Chloride (98-107) mEq/L Carbon Dioxide (21-32) mEq/L Anion Gap (5-15) BUN (7-18) mg/dL Creatinine (0.55-1.02) mg/dL Est Cr Clr Drug Dosing mL/min Estimated GFR (MDRD) (>60) mL/min BUN/Creatinine Ratio (14-18) Glucose (74-106) mg/dL Lactic Acid (0.4-2.0) mmol/L Calcium (8.5-10.1) mg/dL Total Bilirubin (0.2-1.0) mg/dL AST (15-37) U/L ALT (14-59) U/L Alkaline Phosphatase (46-116) U/L C-Reactive Protein (<1.0) mg/dL Total Protein (6.4-8.2) g/dl Albumin (3.4-5.0) g/dl Globulin gm/dL Albumin/Globulin Ratio (1-2) COVID-19 (PIERRE) Negative (NEGATIVE) Result Diagrams: 07/04/20 04:43 07/04/20 04:43 Sepsis Event Note - Evaluation Sepsis Screening Result: No Definite Risk - Focused Exam Vital Signs: Vital Signs Temp Pulse Resp BP Pulse Ox 07/03/20 11:48 98.0 F 80 20 185/116 H 98 - Problem List (1) Hypertension SNOMED Code(s): 46046299 ICD Code: I10 - ESSENTIAL (PRIMARY) HYPERTENSION Status: Chronic Priority: Medium Current Visit: No Qualifiers: Hypertension type: unspecified Qualified Code(s): I10 - Essential (primary) hypertension (2) History of multiple pulmonary nodules SNOMED Code(s): 068700939 ICD Code: Z87.898 - PERSONAL HISTORY OF OTHER SPECIFIED CONDITIONS Status: Chronic Priority: Medium Current Visit: No (3) GERD (gastroesophageal reflux disease) SNOMED Code(s): 826338824 ICD Code: K21.9 - GASTRO-ESOPHAGEAL REFLUX DISEASE WITHOUT ESOPHAGITIS Status: Chronic Priority: Low Current Visit: No Qualifiers: Esophagitis presence: esophagitis presence not specified Qualified Code(s): K21.9 - Gastro-esophageal reflux disease without esophagitis (4) History of ovarian cancer Status: Chronic Priority: Low Current Visit: No (5) Arthritis SNOMED Code(s): 1678502 ICD Code: M19.90 - UNSPECIFIED OSTEOARTHRITIS, UNSPECIFIED SITE Status: Chronic Priority: Low Current Visit: No (6) Venous stasis dermatitis SNOMED Code(s): 20642371 ICD Code: I87.2 - VENOUS INSUFFICIENCY (CHRONIC) (PERIPHERAL) Status: Acute Current Visit: Yes (7) Left leg cellulitis SNOMED Code(s): 554739698 ICD Code: L03.116 - CELLULITIS OF LEFT LOWER LIMB Status: Acute Current Visit: Yes (8) Seroma SNOMED Code(s): 938932497 ICD Code: DRU2507 - Status: Acute Current Visit: No (9) Obesity SNOMED Code(s): 572859033, 325972188 ICD Code: E66.9 - OBESITY, UNSPECIFIED Status: Chronic Priority: Medium Current Visit: Yes Qualifiers: Obesity type: unspecified obesity type Obesity classification: adult class 3 (BMI >= 40) Serious obesity comorbidity presence: unspecified whether serious comorbidity present Body mass index: BMI 45.0-49.9 Qualified Code(s): E66.01 - Morbid (severe) obesity due to excess calories; Z68.42 - Body mass index (BMI) 45.0-49.9, adult Problem List Initiated/Reviewed/Updated: Yes Orders Last 24hrs: Active Orders 24 hr Category Date Time Status Peripheral IV Care [RC] . DIRECTED Care 07/03/20 11:50 Active CULTURE BLOOD [BC] Stat Lab 07/03/20 12:30 Received CULTURE BLOOD [BC] Stat Lab 07/03/20 12:45 Received PROCALCITONIN [REF] Stat Lab 07/03/20 14:04 Ordered Pharmacy to Dose - Vancomycin Med 07/03/20 13:00 Active 1 dose .XX ASDIRECTED PRN Sodium Chloride 0.9% [Saline Flush] Med 07/03/20 11:49 Active 10 ml FLUSH ASDIRECTED PRN Vancomycin 1 gm Med 07/04/20 02:00 Pending Vancomycin 500 mg Sodium Chloride 0.9% [Normal Saline] 500 ml IV Q12H Vancomycin 1.75 gm Med 07/03/20 14:00 Active Sodium Chloride 0.9% [Normal Saline] 500 ml IV ONETIME Blood Culture x2 Reflex Set [OM.PC] Stat Oth 07/03/20 11:50 Ordered Peripheral IV Insertion Adult [OM.PC] Stat Oth 07/03/20 11:49 Ordered Medication Orders Vancomycin HCl 1.75 gm/ Sodium (Chloride) 500 mls @ 250 mls/hr IV ONETIME ONE Stop: 07/03/20 15:59 Last Admin: 07/03/20 13:26 Dose: 250 mls/hr Documented by: NICKY Vancomycin HCl 1 gm/Vancomycin HCl 500 mg/ Sodium Chloride 500 mls @ 250 mls/hr IV Q12H MAGALI Sodium Chloride (Saline Flush) 10 ml FLUSH ASDIRECTED PRN PRN Reason: Keep Vein Open Last Admin: 07/03/20 12:51 Dose: 10 ml Documented by: NICKY Vancomycin HCl (Pharmacy To Dose - Vancomycin) 1 dose .XX ASDIRECTED PRN PRN Reason: RX TO DOSE VANCO Assessment/Plan Comment:: Assessment - day of admission 07/03/20 * Sent to ED after being seen by Dr. Worley in clinic for cellulitis in left lower leg * Had been treated outpatient with Bactrim but reportedly developed an allergic reaction (minimal hives noted on patient) * Seen in ED on 06/30/20 for this, admission recommended, patient refused - sent home on clindamycin. * Notes cellulitis is now worsening * Denies fevers at home * Reports chronic left knee pain - unfortunately poor surgical candidate for TKA * Sepsis criteria: No fever, No leukocytosis, no tachycardia, no tachypnea - Does not meet criteria * Blood cultures drawn in ED and pending * Multiple drug allergies * Started on vancomycin in ED * Labs: * WBC 5.81 * Hgb 11.8 * Platelet 397 * Neutrophils 66.8% * Sodium 134 * Potassium 4.0 * BUN 37 * Creatinine 1.3 * eGFR 42 * Lactic acid 1.2 * AST 33 * ALT 49 * Alk Phos 239 * CRP 3.1 * Albumin 2.4 * COVID -19 screen negative * Patient admitted inpatient for IV antibiotics, failed outpatient treatment for LLE cellulitis Plan Left leg cellulitis Venous stasis dermatitis Seroma Obesity * Discontinue vancomycin and start doxycycline BID * Elevate extremities whenever possible * Demarcate area of erythema * Monitor labs * Procalcitonin Q48 hours * Consider wound culture if weeping * Consider PT wound care consultation * PT/OT * Paint Preparer consult * Await blood cultures Hypertension * Continue home medications History of multiple pulmonary nodules * No concerns at this time GERD (gastroesophageal reflux disease) * Continue home Pepcid History of ovarian cancer * No concerns at this time Arthritis * Pain medications as needed * No current concerns PCP: Dr. Aviles DVT prophylaxis: Lovenox GI prophylaxis: Home pepcid Social: Patient resides at [facility], utilizes walker. Disposition: Patient admitted inpatient to medical floor for IV antibiotics due to failed outpatient treatment of cellulitis. Suspected LOS 3-4 days. - Mortality Measure Prognosis:: Good
[2020-07-03] MEDS ORDERED: Ketorolac 30 MG/ML SDV IVPUSH ONE (14:17)
[2020-07-03] MEDS ORDERED: Ondansetron 4 MG/2 ML SDV IV PRN (14:31)
[2020-07-03] MEDS ORDERED: Lactated Ringers 1,000 ML IV SCH (14:45)
[2020-07-03] MEDS ORDERED: Famotidine 20 MG Tab PO SCH (14:45)
[2020-07-03] MEDS: Enoxaparin 40 MG/0.4 ML Syringe SUBCUT SCH (17:27)
[2020-07-03] MEDS: Ketorolac 30 MG/ML SDV IV PRN (19:51)
[2020-07-03] MEDS: Famotidine 20 MG Tab PO SCH (21:06)
[2020-07-03] MEDS: Doxycycline 100 MG in Sodium Chloride 0.9% 100 ML IV SCH (21:07)
[2020-07-04] MEDS ORDERED: Vancomycin 1 GM, Vancomycin 500 MG in Sodium Chloride 0.9% 500 ML IV SCH (02:00)
[2020-07-04] MEDS: Ketorolac 30 MG/ML SDV IV PRN ×3 (04:20→23:05)
--- NOTE | 2020-07-04 07:13 | PCM.PN ---
- General Info Date of Service: 07/04/20 Admission Dx/Problem (Free Text): Cellulitis Functional Status: Reports: Pain Controlled, Tolerating Diet, Ambulating, Urinating, Incentive Spirometry. Denies: New Symptoms - Review of Systems General: Reports: No Symptoms. Denies: Fever, Weakness, Fatigue, Malaise, Chills HEENT: Reports: No Symptoms. Denies: Headaches, Sore Throat Pulmonary: Reports: No Symptoms. Denies: Shortness of Breath, Cough, Sputum, Wheezing Cardiovascular: Reports: Edema (chronic left sided ). Denies: Chest Pain, Palpitations, Dyspnea on Exertion Gastrointestinal: Reports: No Symptoms. Denies: Abdominal Pain, Constipation, Decreased Appetite, Diarrhea, Nausea, Vomiting Genitourinary: Reports: No Symptoms. Denies: Pain Musculoskeletal: Reports: Leg Pain (acute on chronic - improved and almost to baseline ) Skin: Reports: No Symptoms. Denies: Cyanosis Neurological: Reports: No Symptoms, Difficulty Walking. Denies: Confusion, Numbness, Tingling, Weakness, Gait Disturbance Psychiatric: Reports: No Symptoms - Patient Data Vitals - Most Recent: Last Vital Signs Temp 97.9 F 07/04/20 04:25 Pulse 65 07/04/20 04:25 Resp 20 07/04/20 04:25 BP 147/74 H 07/04/20 04:25 Pulse Ox 95 07/04/20 04:25 Weight - Most Recent: 298 lb 12.8 oz I&O - Last 24 Hours: Intake & Output 07/03/20 07/04/20 07/04/20 22:59 06:59 14:59 Intake Total 1568 Output Total 675 Balance 893 Lab Results Last 24 Hours: Laboratory Results - last 24 hr 07/03/20 07/03/20 07/03/20 Range/Units 12:30 12:30 12:30 WBC 5.81 (3.98-10.04) K/mm3 RBC 4.16 (3.98-5.22) M/mm3 Hgb 11.8 (11.2-15.7) gm/dl Hct 38.3 (34.1-44.9) % MCV 92.1 (79.4-94.8) fl MCH 28.4 (25.6-32.2) pg MCHC 30.8 L (32.2-35.5) g/dl RDW Std Deviation 52.4 H (36.4-46.3) fL Plt Count 397 H (182-369) K/mm3 MPV 9.1 L (9.4-12.3) fl Neut % (Auto) 66.8 (34.0-71.1) % Lymph % (Auto) 14.5 L (19.3-51.7) % [place] % (Auto) 11.7 (4.7-12.5) % Eos % (Auto) 6.2 H (0.7-5.8) Baso % (Auto) 0.5 (0.1-1.2) % Neut # (Auto) 3.88 (1.56-6.13) K/mm3 Lymph # (Auto) 0.84 L (1.18-3.74) K/mm3 [place] # (Auto) 0.68 H (0.24-0.36) K/mm3 Eos # (Auto) 0.36 (0.04-0.36) K/mm3 Baso # (Auto) 0.03 (0.01-0.08) K/mm3 Manual Slide Review Sodium 134 L (136-145) mEq/L Potassium 4.0 (3.5-5.1) mEq/L Chloride 99 (98-107) mEq/L Carbon Dioxide 25 (21-32) mEq/L Anion Gap 14.0 (5-15) BUN 37 H (7-18) mg/dL Creatinine 1.3 H (0.55-1.02) mg/dL Est Cr Clr Drug Dosing 45.23 mL/min Estimated GFR (MDRD) 42 (>60) mL/min BUN/Creatinine Ratio 28.5 H (14-18) Glucose 94 (74-106) mg/dL Lactic Acid 1.2 (0.4-2.0) mmol/L Calcium 9.4 (8.5-10.1) mg/dL Phosphorus (2.6-4.7) mg/dL Magnesium (1.8-2.4) mg/dl Total Bilirubin 0.2 (0.2-1.0) mg/dL AST 33 (15-37) U/L ALT 49 (14-59) U/L Alkaline Phosphatase 239 H (46-116) U/L C-Reactive Protein 3.1 H* (<1.0) mg/dL Total Protein 8.0 (6.4-8.2) g/dl Albumin 2.9 L (3.4-5.0) g/dl Globulin 5.1 gm/dL Albumin/Globulin Ratio 0.6 L (1-2) COVID-19 ([facility]) (NEGATIVE) 07/03/20 07/04/20 07/04/20 Range/Units 12:49 04:43 04:43 WBC 4.52 (3.98-10.04) K/mm3 RBC 3.55 L (3.98-5.22) M/mm3 Hgb 10.1 L D (11.2-15.7) gm/dl Hct 33.1 L (34.1-44.9) % MCV 93.2 (79.4-94.8) fl MCH 28.5 (25.6-32.2) pg MCHC 30.5 L (32.2-35.5) g/dl RDW Std Deviation 53.1 H (36.4-46.3) fL Plt Count 308 D (182-369) K/mm3 MPV 9.2 L (9.4-12.3) fl Neut % (Auto) 56.9 (34.0-71.1) % Lymph % (Auto) 23.0 (19.3-51.7) % [place] % (Auto) 11.9 (4.7-12.5) % Eos % (Auto) 7.1 H (0.7-5.8) Baso % (Auto) 0.7 (0.1-1.2) % Neut # (Auto) 2.57 (1.56-6.13) K/mm3 Lymph # (Auto) 1.04 L (1.18-3.74) K/mm3 [place] # (Auto) 0.54 H (0.24-0.36) K/mm3 Eos # (Auto) 0.32 (0.04-0.36) K/mm3 Baso # (Auto) 0.03 (0.01-0.08) K/mm3 Manual Slide Review Normal smear Sodium 139 (136-145) mEq/L Potassium 3.7 (3.5-5.1) mEq/L Chloride 105 (98-107) mEq/L Carbon Dioxide 24 (21-32) mEq/L Anion Gap 13.7 (5-15) BUN 34 H (7-18) mg/dL Creatinine 1.3 H (0.55-1.02) mg/dL Est Cr Clr Drug Dosing 45.23 mL/min Estimated GFR (MDRD) 42 (>60) mL/min BUN/Creatinine Ratio 26.2 H (14-18) Glucose 92 (74-106) mg/dL Lactic Acid (0.4-2.0) mmol/L Calcium 8.7 (8.5-10.1) mg/dL Phosphorus 3.6 (2.6-4.7) mg/dL Magnesium 2.3 (1.8-2.4) mg/dl Total Bilirubin 0.2 (0.2-1.0) mg/dL AST 22 (15-37) U/L ALT 36 (14-59) U/L Alkaline Phosphatase 182 H (46-116) U/L C-Reactive Protein (<1.0) mg/dL Total Protein 6.4 (6.4-8.2) g/dl Albumin 2.4 L (3.4-5.0) g/dl Globulin 4.0 gm/dL Albumin/Globulin Ratio 0.6 L (1-2) COVID-19 ([facility]) Negative (NEGATIVE) Med Orders - Current: Current Medications Acetaminophen (Tylenol) 650 mg PO Q4H PRN PRN Reason: Pain (Mild 1-3)/fever Amlodipine Besylate (Norvasc) 10 mg PO DAILY [facility] Enoxaparin Sodium (Lovenox) 40 mg SUBCUT Q24H [facility] Last Admin: 07/03/20 17:27 Dose: 40 mg Documented by: Famotidine (Pepcid) 20 mg PO BID [facility] Last Admin: 07/03/20 21:06 Dose: 20 mg Documented by: Doxycycline Hyclate 100 mg/ (Sodium Chloride) 100 mls @ 100 mls/hr IV Q12HR [facility] Last Admin: 07/03/20 21:07 Dose: 100 mls/hr Documented by: Ketorolac Tromethamine (Toradol) 30 mg IV Q6H PRN PRN Reason: Pain (moderate 4-6) Last Admin: 07/04/20 04:20 Dose: 30 mg Documented by: Loratadine (Claritin) 10 mg PO DAILY [facility] Metoprolol Succinate (Toprol Xl) 50 mg PO DAILY [facility] Ondansetron HCl (Zofran) 4 mg IV Q6H PRN PRN Reason: Nausea/Vomiting Sodium Chloride (Saline Flush) 10 ml FLUSH ASDIRECTED PRN PRN Reason: Keep Vein Open Last Admin: 07/03/20 12:51 Dose: 10 ml Documented by: Spironolactone (Aldactone) 100 mg PO DAILY [facility] Discontinued Medications Vancomycin HCl 1.75 gm/ Sodium (Chloride) 500 mls @ 250 mls/hr IV ONETIME ONE Stop: 07/03/20 15:59 Last Admin: 07/03/20 13:26 Dose: 250 mls/hr Documented by: Vancomycin HCl 1 gm/Vancomycin HCl 500 mg/ Sodium Chloride 500 mls @ 250 mls/hr IV Q12H [facility] Lactated Ringer's (Ringers, Lactated) 1,000 mls @ 100 mls/hr IV ASDIRECTED [facility] Stop: 07/04/20 00:44 Last Admin: 07/03/20 16:25 Dose: 100 mls/hr Documented by: Ketorolac Tromethamine (Toradol) 30 mg IVPUSH ONETIME ONE Stop: 07/03/20 14:18 Last Admin: 07/03/20 14:35 Dose: 30 mg Documented by: Non-Formulary Medication (Cetirizine) 10 mg PO DAILY [facility] Vancomycin HCl (Pharmacy To Dose - Vancomycin) 1 dose .XX ASDIRECTED PRN PRN Reason: RX TO DOSE VANCO - Exam Quality Assessment: DVT Prophylaxis General: Alert, Oriented, Cooperative, No Acute Distress HEENT: Pupils Equal, Pupils Reactive, Mucous Membr. Moist/[place] Neck: Supple, Trachea Midline Lungs: Clear to Auscultation, Normal Respiratory Effort Cardiovascular: Regular Rate, Regular Rhythm GI/Abdominal Exam: Normal Bowel Sounds, Soft, Non-Tender, No Distention Back Exam: Normal Inspection, Full Range of Motion Extremities: Pedal Edema (Unilateral left sided edema - patient reports this is baseline for her), Leg Pain (improving ), Limited Range of Motion Skin: Warm, Dry, Intact, Rash (improving over chest and arms. ) Wound/Incisions: No Drainage, Erythema Improving, Other (Multiple intact blisters on left leg.) Neurological: No New Focal Deficit Psy/Mental Status: Alert, Normal Affect, Normal Mood Sepsis Event Note - Evaluation Sepsis Screening Result: No Definite Risk - Focused Exam Vital Signs: Vital Signs Temp Pulse Resp BP Pulse Ox 07/04/20 04:25 97.9 F 65 20 147/74 H 95 07/04/20 01:05 98.6 F 77 20 147/73 H 97 07/03/20 19:36 97.9 F 78 14 158/85 H 98 - Problem List & Annotations (1) Hypertension SNOMED Code(s): 26474109 Code(s): I10 - ESSENTIAL (PRIMARY) HYPERTENSION Status: Chronic Priority: Medium Current Visit: No Qualifiers: Hypertension type: unspecified Qualified Code(s): I10 - Essential (primary) hypertension (2) History of multiple pulmonary nodules SNOMED Code(s): 867843729 Code(s): Z87.898 - PERSONAL HISTORY OF OTHER SPECIFIED CONDITIONS Status: Chronic Priority: Medium Current Visit: No (3) GERD (gastroesophageal reflux disease) SNOMED Code(s): 152599007 Code(s): K21.9 - GASTRO-ESOPHAGEAL REFLUX DISEASE WITHOUT ESOPHAGITIS Status: Chronic Priority: Low Current Visit: No Qualifiers: Esophagitis presence: esophagitis presence not specified Qualified Code(s): K21.9 - Gastro-esophageal reflux disease without esophagitis (4) History of ovarian cancer Status: Chronic Priority: Low Current Visit: No (5) Arthritis SNOMED Code(s): 0471026 Code(s): M19.90 - UNSPECIFIED OSTEOARTHRITIS, UNSPECIFIED SITE Status: Chronic Priority: Low Current Visit: No (6) Venous stasis dermatitis SNOMED Code(s): 43307277 Code(s): I87.2 - VENOUS INSUFFICIENCY (CHRONIC) (PERIPHERAL) Status: Acute Current Visit: Yes (7) Left leg cellulitis SNOMED Code(s): 320132415 Code(s): L03.116 - CELLULITIS OF LEFT LOWER LIMB Status: Acute Current Visit: Yes (8) Seroma SNOMED Code(s): 183416114 Code(s): WCV5830 - Status: Acute Current Visit: No (9) Obesity SNOMED Code(s): 466195259, 441828025 Code(s): E66.9 - OBESITY, UNSPECIFIED Status: Chronic Priority: Medium Current Visit: Yes Qualifiers: Obesity type: unspecified obesity type Obesity classification: adult class 3 (BMI >= 40) Serious obesity comorbidity presence: unspecified whether serious comorbidity present Body mass index: BMI 45.0-49.9 Qualified Code(s): E66.01 - Morbid (severe) obesity due to excess calories; Z68.42 - Body mass index (BMI) 45.0-49.9, adult - Problem List Review Problem List Initiated/Reviewed/Updated: Yes - My Orders Last 24 Hours: My Active Orders 07/03/20 Lunch Regular Diet [DIET] 07/03/20 12:30 PROCALCITONIN [REF] Stat 07/03/20 14:31 Height and Weight [RC] 04 Intake and Output [RC] 04,16 Oxygen Therapy [RC] PRN Pulse Oximetry [RC] PRN Up With Assistance [RC] ASDIRECTED VTE/DVT Education [RC] PER UNIT ROUTINE Vital Signs [RC] Q4HR Consult to Case Management/Gis Software Engineer [CONS] Routine OT Evaluation and Treatment [CONS] Routine PT Evaluation and Treatment [CONS] Routine Acetaminophen [TylenoL] 650 mg PO Q4H PRN Ketorolac [Toradol] 30 mg IV Q6H PRN Ondansetron [Zofran] 4 mg IV Q6H PRN Resuscitation Status Routine 07/03/20 14:35 Consult to Print Color Operator [CONS] Routine 07/03/20 14:40 Communication Order [RC] PRN 07/03/20 14:43 Communication Order [RC] PRN 07/03/20 18:00 Enoxaparin [Lovenox] 40 mg SUBCUT Q24H 07/03/20 21:00 Doxycycline [Vibramycin] 100 mg Sodium Chloride 0.9% [Normal Saline] 100 ml IV Q12HR Famotidine [Pepcid] 20 mg PO BID 07/04/20 09:00 Loratadine [Claritin] 10 mg PO DAILY Metoprolol Succinate [Toprol XL] 50 mg PO DAILY Spironolactone [Aldactone] 100 mg PO DAILY amLODIPine [Norvasc] 10 mg PO DAILY 07/05/20 05:11 PROCALCITONIN [REF] Routine - Assessment Assessment:: Assessment - day of admission 07/03/20 * Sent to ED after being seen by Dr. Worley in clinic for cellulitis in left lower leg * Had been treated outpatient with Bactrim but reportedly developed an allergic reaction (minimal hives noted on patient) * Seen in ED on 06/30/20 for this, admission recommended, patient refused - sent home on clindamycin. * Notes cellulitis is now worsening * Denies fevers at home * Reports chronic left knee pain - unfortunately poor surgical candidate for TKA * Sepsis criteria: No fever, No leukocytosis, no tachycardia, no tachypnea - Does not meet criteria * Blood cultures drawn in ED and pending * Multiple drug allergies * Started on vancomycin in ED * Labs: * WBC 5.81 * Hgb 11.8 * Platelet 397 * Neutrophils 66.8% * Sodium 134 * Potassium 4.0 * BUN 37 * Creatinine 1.3 * eGFR 42 * Lactic acid 1.2 * AST 33 * ALT 49 * Alk Phos 239 * CRP 3.1 * Albumin 2.4 * COVID -19 screen negative * Patient admitted inpatient for IV antibiotics, failed outpatient treatment for LLE cellulitis 07/04/20 * Reports leg pain is much improved * Erythema improving * IS added * Last BM on 07/03/20 * Day 2 of doxycycline * On room air * PT/OT recommending return to [facility] and hip kit * Blood cultures negative x1 day * No fevers * Labs: * WBC 4.52 * Hgb 10.1 * platelet 308 * neutrophils 56.9% * Normal smear * Sodium 139 * potassium 3.7 * anion gap 13.7 * BUN 34 * creatinine 1.3 * GFR 42 * phosphorus 3.6 * magnesium 2.3 * bilirubin 0.2 * AST 22 * ALT 36 * alkaline phosphatase 182 * albumin 2.4 - Plan Plan:: Left leg cellulitis Venous stasis dermatitis Seroma Obesity * Continue doxycycline BID * Elevate extremities whenever possible * Monitor labs * Procalcitonin Q48 hours * Consider wound culture if weeping * Consider PT wound care consultation if wounds begin to weap * PT/OT * Print Color Operator consult * Monitor blood cultures * Add IS Hypertension * Continue home medications History of multiple pulmonary nodules * No concerns at this time GERD (gastroesophageal reflux disease) * Continue home Pepcid History of ovarian cancer * No concerns at this time Arthritis * Pain medications as needed * No current concerns PCP: Dr. Aviles DVT prophylaxis: Lovenox GI prophylaxis: Home pepcid Social: Patient resides at [facility], utilizes walker. Disposition: Patient admitted inpatient to medical floor for IV antibiotics due to failed outpatient treatment of cellulitis. Suspected LOS 3-4 days total.
[2020-07-04] MEDS: Doxycycline 100 MG in Sodium Chloride 0.9% 100 ML IV SCH ×2 (08:50→21:25)
[2020-07-04] MEDS: Spironolactone 100 MG Tab PO SCH (08:52)
[2020-07-04] MEDS: Loratadine 10 MG Tab PO SCH (08:52)
[2020-07-04] MEDS: Famotidine 20 MG Tab PO SCH ×2 (08:52→21:23)
[2020-07-04] MEDS: amLODIPine 10 MG Tab PO SCH (08:52)
[2020-07-04] MEDS: Metoprolol Succinate 50 MG Tab.ER PO SCH (08:52)
[2020-07-04] MEDS ORDERED: Non-Formulary Medication 1 Each (Cetirizine 10 MG) PO SCH (09:00)
[2020-07-04] MEDS: Acetaminophen 325 MG Tab PO PRN ×2 (13:04→21:23)
[2020-07-04] MEDS: Enoxaparin 40 MG/0.4 ML Syringe SUBCUT SCH (17:20)
[2020-07-04] MEDS ORDERED: Doxycycline 100 MG Vial ONE (20:47)
[2020-07-04] MEDS: Sodium Chloride 0.9% 10 ML Syringe FLUSH PRN (23:06)
[2020-07-05] MEDS: Acetaminophen 325 MG Tab PO PRN ×2 (04:47→18:34)
[2020-07-05] MEDS ORDERED: Ketorolac 30 MG/ML SDV IVPUSH PRN (08:00)
[2020-07-05] MEDS: Famotidine 20 MG Tab PO SCH ×2 (08:30→20:37)
[2020-07-05] MEDS: amLODIPine 10 MG Tab PO SCH (08:31)
[2020-07-05] MEDS: Spironolactone 100 MG Tab PO SCH (08:31)
[2020-07-05] MEDS: Loratadine 10 MG Tab PO SCH (08:31)
[2020-07-05] MEDS: Metoprolol Succinate 50 MG Tab.ER PO SCH (08:34)
[2020-07-05] MEDS: Doxycycline 100 MG in Sodium Chloride 0.9% 100 ML IV SCH (08:59)
[2020-07-05] MEDS: Enoxaparin 40 MG/0.4 ML Syringe SUBCUT SCH (17:35)
--- NOTE | 2020-07-05 19:06 | PCM.PN ---
- General Info Date of Service: 07/05/20 Subjective Update: Slept OK Feels great Tolerating diet - Patient Data Vitals - Most Recent: Last Vital Signs Temp 98.1 F 07/05/20 17:28 Pulse 66 07/05/20 17:28 Resp 18 07/05/20 17:28 BP 159/91 H 07/05/20 17:28 Pulse Ox 99 07/05/20 17:28 Weight - Most Recent: 136.486 kg - Exam General: Alert, Oriented, Cooperative, No Acute Distress HEENT: Pupils Equal, Pupils Reactive, EOMI, Mucous Membr. Moist/[place] Neck: Supple. No: Lymphadenopathy Lungs: Normal Respiratory Effort, Decreased Breath Sounds. No: Crackles, Rales, Rhonchi, Rub, Stridor, Wheezing Cardiovascular: Regular Rate, Regular Rhythm. No: Murmurs, Gallops, Rubs GI/Abdominal Exam: Distended. No: Guarding, Rigid, Rebound, Tender Extremities: Other (large erythematous rash with blistering anteriorly, no purulent drainage, erythema improved from admission ) Peripheral Pulses: 2+: Radial (L), Radial (R) Psy/Mental Status: Normal Affect, Normal Mood Sepsis Event Note - Evaluation Sepsis Screening Result: No Definite Risk - Problem List & Annotations (1) Left leg cellulitis SNOMED Code(s): 358610753 Code(s): L03.116 - CELLULITIS OF LEFT LOWER LIMB Status: Acute Current Visit: Yes (2) Acute kidney injury SNOMED Code(s): 51478475, 95217841 Code(s): N17.9 - ACUTE KIDNEY FAILURE, UNSPECIFIED Status: Acute Current Visit: Yes (3) Venous stasis dermatitis SNOMED Code(s): 80328688 Code(s): I87.2 - VENOUS INSUFFICIENCY (CHRONIC) (PERIPHERAL) Status: Acute Current Visit: Yes (4) Obesity SNOMED Code(s): 746009160, 385848984 Code(s): E66.9 - OBESITY, UNSPECIFIED Status: Chronic Priority: Medium Current Visit: Yes Qualifiers: Obesity type: unspecified obesity type Obesity classification: adult class 3 (BMI >= 40) Serious obesity comorbidity presence: unspecified whether serious comorbidity present Body mass index: BMI 45.0-49.9 Qualified Code(s): E66.01 - Morbid (severe) obesity due to excess calories; Z68.42 - Body mass index (BMI) 45.0-49.9, adult (5) Arthritis SNOMED Code(s): 4064663 Code(s): M19.90 - UNSPECIFIED OSTEOARTHRITIS, UNSPECIFIED SITE Status: Chronic Priority: Low Current Visit: No (6) GERD (gastroesophageal reflux disease) SNOMED Code(s): 360528515 Code(s): K21.9 - GASTRO-ESOPHAGEAL REFLUX DISEASE WITHOUT ESOPHAGITIS Status: Chronic Priority: Low Current Visit: No Qualifiers: Esophagitis presence: esophagitis presence not specified Qualified Code(s): K21.9 - Gastro-esophageal reflux disease without esophagitis (7) History of multiple pulmonary nodules SNOMED Code(s): 705324442 Code(s): Z87.898 - PERSONAL HISTORY OF OTHER SPECIFIED CONDITIONS Status: C hronic Priority: Medium Current Visit: No (8) History of ovarian cancer Status: Chronic Priority: Low Current Visit: No (9) Hypertension SNOMED Code(s): 84184436 Code(s): I10 - ESSENTIAL (PRIMARY) HYPERTENSION Status: Chronic Priority: Medium Current Visit: No Qualifiers: Hypertension type: unspecified Qualified Code(s): I10 - Essential (primary) hypertension - Problem List Review Problem List Initiated/Reviewed/Updated: Yes - Assessment Assessment:: Assessment - day of admission 07/03/20 - Sent to ED after being seen by Dr. Worley in clinic for cellulitis in left lower leg - Had been treated outpatient with Bactrim but reportedly developed an allergic reaction (minimal hives noted on patient) - Seen in ED on 06/30/20 for this, admission recommended, patient refused - sent home on clindamycin. - Notes cellulitis is now worsening - Denies fevers at home - Reports chronic left knee pain - unfortunately poor surgical candidate for TKA - Sepsis criteria: No fever, No leukocytosis, no tachycardia, no tachypnea - Does not meet criteria - Blood cultures drawn in ED and pending - Multiple drug allergies - Started on vancomycin in ED - Labs: - WBC 5.81 - Hgb 11.8 - Platelet 397 - Neutrophils 66.8% - Sodium 134 - Potassium 4.0 - BUN 37 - Creatinine 1.3 - eGFR 42 - Lactic acid 1.2 - AST 33 - ALT 49 - Alk Phos 239 - CRP 3.1 - Albumin 2.4 - COVID -19 screen negative - Patient admitted inpatient for IV antibiotics, failed outpatient treatment for LLE cellulitis 07/04/20 - Reports leg pain is much improved - Erythema improving - IS added - Last BM on 07/03/20 - Day 2 of doxycycline - On room air - PT/OT recommending return to [facility] and hip kit - Blood cultures negative x1 day - No fevers - Labs: - WBC 4.52 - Hgb 10.1 - platelet 308 - neutrophils 56.9% - Normal smear - Sodium 139 - potassium 3.7 - anion gap 13.7 - BUN 34 - creatinine 1.3 - GFR 42 - phosphorus 3.6 - magnesium 2.3 - bilirubin 0.2 - AST 22 - ALT 36 - alkaline phosphatase 182 - albumin 2.4 PLAN - Continue doxycycline BID - Elevate extremities whenever possible - Monitor labs - Procalcitonin Q48 hours - Consider wound culture if weeping - Consider PT wound care consultation if wounds begin to weap - PT/OT - Meter Repairer consult - Monitor blood cultures - Add IS - Pain medications as needed 07/05/20 - Eating 100% of diet - PT recommending back to assisted living facility with hip kit - Doxycycline day 3 - GFR up from 42 to 57 - VS trend - BP 147-167/74-91 - Tmax 98.6 - HR 64-83x' - SatO2 > 98% - Plan Plan:: Left leg cellulitis Venous stasis dermatitis Seroma Obesity - Continue Doxycycline - Transition ATB to PO - Keep leg elevated as much as possible - Continue IS - F/U on cultures - F/U repeat procalcitonin Hypertension - Continue home medications History of multiple pulmonary nodules - No concerns at this time - Will need repeat CT in 6 months for follow up GERD (gastroesophageal reflux disease) - Continue home Pepcid History of ovarian cancer - No concerns at this time Arthritis - Pain medications as needed - No current concerns PROPHYLAXIS DVT- Lovenox GI- home Pepcid CODE STATUS: FULL CODE DISPOSITION: Patient admitted for cellulitis on IV doxycycline, tolerating ATB well, clinically improved and las are improved. Will transition ATB to PO today. PT/OT recommending back to assisted living facility. Discharge in AM likely
[2020-07-05] MEDS: Doxycycline 100 MG Cap PO SCH (20:37)
[2020-07-06] MEDS: Acetaminophen 325 MG Tab PO PRN ×2 (02:02→08:15)
[2020-07-06] MEDS: amLODIPine 10 MG Tab PO SCH (08:07)
[2020-07-06] MEDS: Loratadine 10 MG Tab PO SCH (08:07)
[2020-07-06] MEDS: Spironolactone 100 MG Tab PO SCH (08:07)
[2020-07-06] MEDS: Famotidine 20 MG Tab PO SCH (08:08)
[2020-07-06] MEDS: Doxycycline 100 MG Cap PO SCH (08:08)
[2020-07-06] MEDS: Metoprolol Succinate 50 MG Tab.ER PO SCH (08:08)
--- NOTE | 2020-07-06 09:40 | PCM.DCSUM1 ---
Discharge Summary - Hospital Course HPI Initial Comments: This is a 54 old female who presents to ED after being sent here by Dr. Worley, general surgeon, who is recommending the patient be admitted for cellulitis with IV antibiotics. She lives at [facility] and utilizes a walker to ambulate. Per the ED note the patient has been treated with Bactrim and the patient then developed an allergic reaction which resulted in her presenting to the ED this past Friday. At that time admission was recommended however the patient ultimately decided that she would like to try outpatient treatment 1 more time. She was then started on clindamycin. She presented back to the ED today and is noted that her cellulitis is worsening. She not exactly sure which day symptoms started occurring but she denies any fever, chills, nausea, vomiting, diarrhea. She reports that she normally has a bad left knee joint and that she would like to have a knee replacement, however she is a poor candidate due to her significant past medical history. In the ED she was afebrile. Pulse 80. Respirations 20. Blood pressure was high at 185/116. Pulse ox 98% on room air. Labs are obtained and CBC is unremarkable with no leukocytosis. Is low 134 and creatinine is elevated at 1.3 with a GFR 42. Line Green[place] is elevated at 239. CRP is 3.1. 19 screen is negative. She is started on vancomycin. She carries a history of impaired vision, hypertension, benign lung nodules, GERD, ovarian cancer, cellulitis, venous stasis dermatitis. She was never a smoker. Her PCP is Dr. Alvarado. Diagnosis: Stroke: No - Discharge Data Discharge Date: 07/06/20 (Admit date: 07/03/2020) Discharge Disposition: DC/Tfer to Other 70 Condition: Good - Referral to Home Health Primary Care Physician: Francy Kam MD - Discharge Diagnosis/Problem(s) (1) Hypertension SNOMED Code(s): 39442060 ICD Code: I10 - ESSENTIAL (PRIMARY) HYPERTENSION Status: Chronic Priority: Medium Current Visit: No Qualifiers: Hypertension type: unspecified Qualified Code(s): I10 - Essential (primary) hypertension (2) History of multiple pulmonary nodules SNOMED Code(s): 962930311 ICD Code: Z87.898 - PERSONAL HISTORY OF OTHER SPECIFIED CONDITIONS Status: Chronic Priority: Medium Current Visit: No (3) GERD (gastroesophageal reflux disease) SNOMED Code(s): 118659471 ICD Code: K21.9 - GASTRO-ESOPHAGEAL REFLUX DISEASE WITHOUT ESOPHAGITIS Status: Chronic Priority: Low Current Visit: No Qualifiers: Esophagitis presence: esophagitis presence not specified Qualified Code(s): K21.9 - Gastro-esophageal reflux disease without esophagitis (4) History of ovarian cancer Status: Chronic Priority: Low Current Visit: No (5) Arthritis SNOMED Code(s): 1932229 ICD Code: M19.90 - UNSPECIFIED OSTEOARTHRITIS, UNSPECIFIED SITE Status: Chronic Priority: Low Current Visit: No (6) Venous stasis dermatitis SNOMED Code(s): 60467229 ICD Code: I87.2 - VENOUS INSUFFICIENCY (CHRONIC) (PERIPHERAL) Status: Acute Current Visit: Yes (7) Left leg cellulitis SNOMED Code(s): 324429238 ICD Code: L03.116 - CELLULITIS OF LEFT LOWER LIMB Status: Acute Current Visit: Yes (8) Seroma SNOMED Code(s): 188643436 ICD Code: [id number] - Status: Acute Current Visit: No (9) Obesity SNOMED Code(s): 093798825, 132157499 ICD Code: E66.9 - OBESITY, UNSPECIFIED Status: Chronic Priority: Medium Current Visit: Yes Qualifiers: Obesity type: unspecified obesity type Obesity classification: adult class 3 (BMI >= 40) Serious obesity comorbidity presence: unspecified whether serious comorbidity present Body mass index: BMI 45.0-49.9 Qualified Code(s): E66.01 - Morbid (severe) obesity due to excess calories; Z68.42 - Body mass index (BMI) 45.0-49.9, adult - Patient Summary/Data Consults: Consultations 07/03/20 14:31 Consult to Case Management/Linux Engineer [CONS] Routine OT Evaluation and Treatment [CONS] Routine PT Evaluation and Treatment [CONS] Routine 07/03/20 14:35 Consult to Farm Machinery Erector [CONS] Routine Labs Pending at D/C: None Recommended Follow-up Testing/Procedures: Follow-up with PCP within 7-10 days of discharge. -Recommend repeat CBC, CMP, Magnesium at that appointment Hospital Course: Taya was admitted to the hospital floor due to cellulitis of her left lower extremity. She was initially given vancomycin in the ED and this was transitioned to twice daily 100 mg doxycycline once she was admitted to the floor. Of note patient does have multiple drug allergies. Initial labs revealed a CRP of 3.1 and a procalcitonin of 0.18. There was no leukocytosis. Repeat labs showed a procalcitonin of 0.09. Left lower extremity erythema was demarcated and did show continued improvement throughout admission. Cellulitis area was noted to have a blisterlike component which did improve. Blisters were felt with a serosanguineous fluid but there was no obvious drainage. Patient does have significant unilateral edema to left lower extremity, which she reports is chronic. Patient does report chronic significant left knee pain and states she does need a total knee arthroplasty, although per her report she is not a surgical candidate. She resides at [facility] and walks with a walker. PT/OT did evaluate her and found her appropriate for return back to [facility]. They are recommending a hip kit. Labs otherwise remained stable. Electrolytes remained stable. Creatinine did improve to 1.1 with GFR 51. COVID-19 test on admission and discharge were both negative. She denied any other pain reported her legs felt very good prior to discharge. Due to multiple failed outpatient treatment plans patient will be prescribed 10 more days of twice daily p.o. doxycycline, for a total of 14 days of treatment. She instructed to continue utilizing her incentive spirometer for about another week and to ambulate frequently. She instructed to follow-up with her primary care provider within 7 to 10 days of discharge, or sooner if needed. Recommend repeat CBC, CMP, magnesium, and phosphorus at that visit. She will be discharged back to [facility] today. - Patient Instructions Diet: Usual Diet as Tolerated Activity: As Tolerated, Elevate Extremity Activity, Other: Elevate extremities whenever possible Driving: Do Not Drive Showering/Bathing: May Shower Wound/Incision Care: Keep Operative Site/Wound Site Clean and Dry Notify Provider of: Fever, Increased Pain, Swelling and Redness, Drainage, Nausea and/or Vomiting Other/Special Instructions: Follow-up with primary care provider within 7-10 days of dishcarge, sooner if needed. Resume home medications as directed. Continue to utilize your incentive spirometer (Clear/blue device you inhale through) for another week. You were prescribed an antibiotic for your legs. You will take this twice a day with your first dose tonight (07/06/20). Continue taking this until it is all gone, even if you feel 100% better. Should symptoms return or worsen, contact primary care provider or return to the Emergency Department. - Discharge Plan *PRESCRIPTION DRUG MONITORING PROGRAM REVIEWED*: No *COPY OF PRESCRIPTION DRUG MONITORING REPORT IN PATIENT LEISA: No Prescriptions/Med Rec: Doxycycline [Vibramycin] 100 mg PO Q12HR #20 cap Home Medications: Home Meds Acetaminophen [Tylenol] 325 mg PO DAILY PRN 03/26/19 [History] Metoprolol Succinate [Toprol Xl] 50 mg PO DAILY 03/26/19 [History] Pantoprazole [ProTONIX] 40 mg PO DAILY 03/26/19 [History] Potassium Chloride 20 meq PO DAILY 03/26/19 [History] Spironolactone [Aldactone] 100 mg PO DAILY 03/26/19 [History] amLODIPine [Norvasc] 10 mg PO DAILY 03/26/19 [History] traMADol HCl [Tramadol HCl] 50 mg PO TID PRN 03/26/19 [History] Famotidine [Pepcid] 20 mg PO Q12H #24 tablet 06/30/20 [Rx] Furosemide [Lasix] 40 mg PO BID 07/03/20 [History] Doxycycline [Vibramycin] 100 mg PO Q12HR #20 cap 07/06/20 [Rx] Oxygen Therapy Mode: Room Air Patient Handouts: Sepsis, Diagnosis, Adult, Cellulitis, Adult, [id number] Referrals: Francy Kam MD [Primary Care Provider] - 07/14/20 1:30 pm (Please check in at 1:15pm.) - Discharge Summary/Plan Comment DC Time >30 min.: Yes (45 mins ) - General Info Date of Service: 07/06/20 Admission Dx/Problem (Free Text: Cellulitis Functional Status: Reports: Pain Controlled, Tolerating Diet, Ambulating, Urinating, Incentive Spirometry. Denies: New Symptoms - Review of Systems General: Reports: No Symptoms. Denies: Fever, Weakness, Fatigue, Malaise, Chills HEENT: Reports: No Symptoms. Denies: Headaches, Sore Throat Pulmonary: Reports: No Symptoms. Denies: Shortness of Breath, Pleuritic Chest Pain, Cough, Sputum, Wheezing Cardiovascular: Reports: Edema (chronic LLE). Denies: Chest Pain, Palpitations, Dyspnea on Exertion Gastrointestinal: Reports: No Symptoms. Denies: Abdominal Pain, Constipation, Diarrhea, Nausea, Vomiting Genitourinary: Reports: No Symptoms. Denies: Pain Musculoskeletal: Reports: Joint Pain (chronic left knee) Skin: Reports: No Symptoms. Denies: Cyanosis Neurological: Reports: No Symptoms. Denies: Confusion, Headache, Numbness, Syncope, Tingling, Trouble Speaking, Difficulty Walking, Weakness, Gait Disturbance Psychiatric: Reports: No Symptoms - Patient Data Vitals - Most Recent: Last Vital Signs Temp 97.2 F 07/06/20 08:02 Pulse 73 07/06/20 08:08 Resp 20 07/06/20 08:02 BP 150/79 H 07/06/20 08:08 Pulse Ox 96 07/06/20 08:02 Weight - Most Recent: 302 lb 8 oz I&O - Last 24 hours: Intake & Output 07/05/20 07/06/20 07/06/20 22:59 06:59 14:59 Intake Total 940 350 Output Total 550 500 Balance 390 -150 Lab Results - Last 24 hrs: Laboratory Results - last 24 hr 07/05/20 Range/Units 04:32 Procalcitonin 0.09 (<0.10) ng/mL RACHELL Results - Last 24 hrs: Microbiology 07/03/20 12:30 Aerobic Blood Culture - Preliminary Blood - Venous NO GROWTH AFTER 2 DAYS Anaerobic Blood Culture - Final 07/03/20 12:45 Aerobic Blood Culture - Preliminary Blood - Venous - Lab Draw NO GROWTH AFTER 2 DAYS Anaerobic Blood Culture - Preliminary NO GROWTH AFTER 2 DAYS Med Orders - Current: Current Medications Acetaminophen (Tylenol) 650 mg PO Q4H PRN PRN Reason: Pain (Mild 1-3)/fever Last Admin: 07/06/20 08:15 Dose: 650 mg Documented by: Amlodipine Besylate (Norvasc) 10 mg PO DAILY [facility] Last Admin: 07/06/20 08:07 Dose: 10 mg Documented by: Doxycycline Hyclate (Vibramycin) 100 mg PO Q12HR [facility] Last Admin: 07/06/20 08:08 Dose: 100 mg Documented by: Enoxaparin Sodium (Lovenox) 40 mg SUBCUT Q24H [facility] Last Admin: 07/05/20 17:35 Dose: 40 mg Documented by: Famotidine (Pepcid) 20 mg PO BID [facility] Last Admin: 07/06/20 08:08 Dose: 20 mg Documented by: Ketorolac Tromethamine (Toradol) 30 mg IVPUSH Q6H PRN PRN Reason: Pain (moderate 4-6) Stop: 07/08/20 14:32 Last Admin: 07/05/20 11:47 Dose: 30 mg Documented by: Loratadine (Claritin) 10 mg PO DAILY [facility] Last Admin: 07/06/20 08:07 Dose: 10 mg Documented by: Metoprolol Succinate (Toprol Xl) 50 mg PO DAILY [facility] Last Admin: 07/06/20 08:08 Dose: 50 mg Documented by: Ondansetron HCl (Zofran) 4 mg IV Q6H PRN PRN Reason: Nausea/Vomiting Sodium Chloride (Saline Flush) 10 ml FLUSH ASDIRECTED PRN PRN Reason: Keep Vein Open Last Admin: 07/04/20 23:06 Dose: 10 ml Documented by: Spironolactone (Aldactone) 100 mg PO DAILY [facility] Last Admin: 07/06/20 08:07 Dose: 100 mg Documented by: Discontinued Medications Doxycycline Hyclate (Vibramycin) Confirm Administered Dose 100 mg .ROUTE .STK- MED ONE Stop: 07/04/20 20:48 Last Admin: 07/04/20 22:25 Dose: Not Given Documented by: Vancomycin HCl 1.75 gm/ Sodium (Chloride) 500 mls @ 250 mls/hr IV ONETIME ONE Stop: 07/03/20 15:59 Last Admin: 07/03/20 13:26 Dose: 250 mls/hr Documented by: Vancomycin HCl 1 gm/Vancomycin HCl 500 mg/ Sodium Chloride 500 mls @ 250 mls/hr IV Q12H [facility] Doxycycline Hyclate 100 mg/ (Sodium Chloride) 100 mls @ 100 mls/hr IV Q12HR [facility] Last Admin: 07/05/20 08:59 Dose: 100 mls/hr Documented by: Lactated Ringer's (Ringers, Lactated) 1,000 mls @ 100 mls/hr IV ASDIRECTED [facility] Stop: 07/04/20 00:44 Last Admin: 07/03/20 16:25 Dose: 100 mls/hr Documented by: Ketorolac Tromethamine (Toradol) 30 mg IVPUSH ONETIME ONE Stop: 07/03/20 14:18 Last Admin: 07/03/20 14:35 Dose: 30 mg Documented by: Ketorolac Tromethamine (Toradol) 30 mg IV Q6H PRN PRN Reason: Pain (moderate 4-6) Last Admin: 07/04/20 23:05 Dose: 30 mg Documented by: Non-Formulary Medication (Cetirizine) 10 mg PO DAILY [facility] Vancomycin HCl (Pharmacy To Dose - Vancomycin) 1 dose .XX ASDIRECTED PRN PRN Reason: RX TO DOSE VANCO - Exam Quality Assessment: Reports: DVT Prophylaxis. Denies: Supplemental Oxygen General: Reports: Alert, Oriented, Cooperative, No Acute Distress HEENT: Reports: Pupils Equal, Pupils Reactive, Mucous Membr. Moist/[place] Neck: Reports: Supple Lungs: Reports: Clear to Auscultation, Normal Respiratory Effort Cardiovascular: Reports: Regular Rate, Regular Rhythm GI/Abdominal Exam: Normal Bowel Sounds, Soft, Non-Tender, No Distention (Female) Exam: Deferred Rectal (Female) Exam: Deferred Back Exam: Reports: Normal Inspection, Full Range of Motion Extremities: Normal Inspection, Normal Range of Motion, Pedal Edema (Left sided - acute on chronic ), Leg Pain (improved ), Redness (improving ). No: Joint Swelling, Limited Range of Motion, Increased Warmth Skin: Reports: Warm, Dry, Intact Wound/Incisions: Reports: Healing Well, No Drainage, Erythema Improving Neurological: Reports: No New Focal Deficit Psy/Mental Status: Reports: Alert, Normal Affect, Normal Mood
== END 2020-07-06 13:00 | disposition other institution (70) | DRG 603 ==
LOC: JD.ED 11:35 → JD.MS 14:23
PROVIDERS: ADMIT Internal Medicine; ATTEND Internal Medicine
DX: L03.116 Cellulitis of left lower limb (principal); H54.7 Unspecified visual loss; I10 Essential (primary) hypertension; Z68.42 Body mass index [BMI] 45.0-49.9, adult; K21.9 Gastro-esophageal reflux disease without esophagitis; M19.90 Unspecified osteoarthritis, unspecified site; I87.2 Venous insufficiency (chronic) (peripheral); Z20.828 Contact with and (suspected) exposure to other viral communicable diseases; E66.01 Morbid (severe) obesity due to excess calories; M25.562 Pain in left knee; G89.29 Other chronic pain; Z88.0 Allergy status to penicillin; Z88.1 Allergy status to other antibiotic agents; Z88.8 Allergy status to other drugs, medicaments and biological substances; Z79.899 Other long term (current) drug therapy; Z85.118 Personal history of other malignant neoplasm of bronchus and lung; Z85.43 Personal history of malignant neoplasm of ovary
CPT/HCPCS: 36415; 80053; 83605; 84145; 85025; 86140; 87040 ×2; 87635; 96365; 99284; J3370; J7040; 80048; 83735; 84100; 97110-GP; 97116-GP; 97162-GP; 97165-GO; 99222; 99231; 99232; 99239; A9270-GY; J1650; J1885; J3490; J7050; J7120; U0002

== ENCOUNTER 2020-11-06 15:27 | Inpatient (IN) | payer MEDICARE, MEDICAID ==
[2020-11-06] MEDS ORDERED: Sodium Chloride 0.9% 10 ML Syringe FLUSH PRN (16:12)
--- NOTE | 2020-11-06 16:59 | EDM.PDOC ---
ED HPI GENERAL MEDICAL PROBLEM - General Chief Complaint: Skin Complaint Stated Complaint: L LEG INFECTION Time Seen by Provider: 11/06/20 15:38 Source of Information: Reports: Patient History Limitations: Reports: No Limitations - History of Present Illness INITIAL COMMENTS - FREE TEXT/NARRATIVE: The patient presents with bilateral lower leg cellulitis. She has a history of this and was admitted to the hospital on June 2020 for cellulitis. She has been going to [facility] for jordy boots for celestina stasis. They were going to put one on today and they noticed her left leg has erythema up to her thigh. She also has open sores to both lower legs that they have been treating. She has no fever, chills, cough, chest pain, shortness of breath, abdominal pain, nausea or vomiting. She was sent over from the clinic. Onset: Gradual Duration: Day(s): Location: Reports: Lower Extremity, Left, Lower Extremity, Right Quality: Reports: Sharp Severity: Moderate Improves with: Reports: None Worsens with: Reports: None Associated Symptoms: Reports: No Other Symptoms Left Leg Pain Score (Numeric/FACES): 8 - Related Data Allergies Allergy/AdvReac Type Severity Reaction Status Date / Time amoxicillin [From Augmentin] Allergy Severe Rash Verified 11/06/20 16:07 castor oil Allergy Severe Anaphylactic Verified 11/06/20 15:39 Shock clavulanic acid Allergy Severe Rash Verified 11/06/20 16:07 [From Augmentin] levofloxacin [From Levaquin] Allergy Severe Rash Verified 11/06/20 16:07 losartan Allergy Severe Rash Verified 11/06/20 16:07 Penicillins Allergy Severe Rash Verified 11/06/20 16:07 povidone-iodine Allergy Severe Cannot Verified 11/06/20 16:07 Remember sulfamethoxazole Allergy Severe Rash Verified 11/06/20 16:07 [From Bactrim] trimethoprim [From Bactrim] Allergy Severe Rash Verified 11/06/20 16:07 warfarin [From Coumadin] Allergy Severe Rash Verified 11/06/20 16:07 Home Meds: Home Meds Acetaminophen [Tylenol] 325 mg PO DAILY PRN 03/26/19 [History] Metoprolol Succinate [Toprol Xl] 50 mg PO DAILY 03/26/19 [History] Pantoprazole [ProTONIX] 40 mg PO DAILY 03/26/19 [History] Potassium Chloride 20 meq PO DAILY 03/26/19 [History] Spironolactone [Aldactone] 100 mg PO DAILY 03/26/19 [History] amLODIPine [Norvasc] 10 mg PO DAILY 03/26/19 [History] traMADol HCl [Tramadol HCl] 50 mg PO TID PRN 03/26/19 [History] Furosemide [Lasix] 40 mg PO BID 07/03/20 [History] Cetirizine [ZyrTEC] 10 mg PO DAILY 11/06/20 [History] Clotrimazole [Clotrimazole 1%] 1 appful TOP DAILY PRN 11/06/20 [History] Fluticasone Propionate [Flonase] 1 spray [place] BID 11/06/20 [History] Loratadine 10 mg PO DAILY 11/06/20 [History] Neomycin/Bacitracin/Polymyxinb [Antibiotic Ointment] 1 applic TOP DAILY 11/06/20 [History] Nystatin 1 each TOP BID PRN 11/06/20 [History] Past Medical History HEENT History: Reports: Impaired Vision Cardiovascular History: Reports: Hypertension Other Cardiovascular History: Heart murmur when younger, states "every now and then doctors can hear it." Respiratory History: Reports: Other (See Below) Other Respiratory History: lung cancer-nodules benign Gastrointestinal History: Reports: GERD Genitourinary History: Reports: Other (See Below) Other Genitourinary History: ovarian cancer Musculoskeletal History: Reports: Arthritis Oncologic (Cancer) History: Reports: Lung, Ovarian Other Oncologic History: had chemo for ovarian cancer Dermatologic History: Reports: Cellulitis, Chronic Cellulitis, Venous Stasis Dermatitis Social & Family History - Family History HEENT: Reports: Macular Degeneration Other HEENT Family History: Both parents. Cardiac: Reports: Hypertension Other Cardiac Family History: HTN in both parents. Other Neurological Family History: Father- stroke Endocrine/Metabolic: Reports: Diabetes, type II Other Endocrine/Metabolic Family History: Both parents. - Tobacco Use Tobacco Use Status *Q: Never Tobacco User - Caffeine Use Caffeine Use: Reports: Soda Other Caffeine Use: coke ED ROS GENERAL - Review of Systems Review Of Systems: See Below Constitutional: Reports: No Symptoms HEENT: Reports: No Symptoms Respiratory: Reports: No Symptoms Cardiovascular: Reports: No Symptoms Endocrine: Reports: No Symptoms GI/Abdominal: Reports: No Symptoms : Reports: No Symptoms Musculoskeletal: Reports: Other (Cellulitis and venous stasis ulcers to both legs) ED EXAM, SKIN/RASH Exam: See Below Exam Limited By: No Limitations General Appearance: Alert, No Apparent Distress Ears: Normal External Exam Nose: Normal Inspection Head: Atraumatic, Normocephalic Neck: Normal Inspection Respiratory/Chest: No Respiratory Distress, Lungs Clear, Normal Breath Sounds Cardiovascular: Regular Rate, Rhythm, No Edema, No Murmur GI/Abdominal: Soft, Non-Tender, No Organomegaly, No Mass Back Exam: Normal Inspection Extremities: Other (Erythema with edema with some open sores to the left lower leg with the erythema extending up her right thigh. She also has some erythema and edema with open sores to the right lower leg.) Course - Vital Signs Last Recorded V/S: Last Vital Signs Temp 98.9 F 11/06/20 15:39 Pulse 90 11/06/20 15:39 Resp 16 11/06/20 15:39 BP 163/102 H 11/06/20 15:39 Pulse Ox 98 11/06/20 15:39 - Orders/Labs/Meds Orders: Active Orders 24 hr Category Date Time Status Peripheral IV Care [RC] . DIRECTED Care 11/06/20 16:13 Active CORONAVIRUS COVID-19 PIERRE [MOLEC] Stat Lab 11/06/20 17:05 Ordered CULTURE BLOOD [BC] Stat Lab 11/06/20 16:50 Received CULTURE BLOOD [BC] Stat Lab 11/06/20 17:00 Received Sodium Chloride 0.9% [Saline Flush] Med 11/06/20 16:12 Active 10 ml FLUSH ASDIRECTED PRN Vancomycin [Vancocin] 1 gm Med 11/06/20 17:15 Active Sodium Chloride 0.9% [Normal Saline (AdvBag)] 250 ml IV Q1H Blood Culture x2 Reflex Set [OM.PC] Stat Oth 11/06/20 16:27 Ordered Peripheral IV Insertion Adult [OM.PC] Stat Oth 11/06/20 16:12 Ordered Medication Orders Vancomycin HCl 1 gm/ Sodium (Chloride) 250 mls @ 250 mls/hr IV Q1H [facility] Stop: 11/06/20 19:14 Last Admin: 11/06/20 17:07 Dose: 250 mls/hr Documented by: SAMAN Sodium Chloride (Saline Flush) 10 ml FLUSH ASDIRECTED PRN PRN Reason: Keep Vein Open Last Admin: 11/06/20 16:17 Dose: 10 ml Documented by: SAMAN Labs: Laboratory Tests 11/06/20 11/06/20 11/06/20 Range/Units 16:25 16:25 16:25 WBC 11.06 H (3.98-10.04) K/mm3 RBC 3.48 L (3.98-5.22) M/mm3 Hgb 9.7 L (11.2-15.7) gm/dl Hct 32.7 L (34.1-44.9) % MCV 94.0 (79.4-94.8) fl MCH 27.9 (25.6-32.2) pg MCHC 29.7 L (32.2-35.5) g/dl RDW Std Deviation 47.4 H (36.4-46.3) fL Plt Count 288 (182-369) K/mm3 MPV 9.4 (9.4-12.3) fl Neut % (Auto) 84.2 H (34.0-71.1) % Lymph % (Auto) 8.2 L (19.3-51.7) % Howell % (Auto) 6.4 (4.7-12.5) % Eos % (Auto) 0.9 (0.7-5.8) Baso % (Auto) 0.1 (0.1-1.2) % Neut # (Auto) 9.31 H (1.56-6.13) K/mm3 Lymph # (Auto) 0.91 L (1.18-3.74) K/mm3 Howell # (Auto) 0.71 H (0.24-0.36) K/mm3 Eos # (Auto) 0.10 (0.04-0.36) K/mm3 Baso # (Auto) 0.01 (0.01-0.08) K/mm3 Manual Slide Review Abnormal smear Sodium 140 (136-145) mEq/L Potassium 4.2 (3.5-5.1) mEq/L Chloride 106 (98-107) mEq/L Carbon Dioxide 25 (21-32) mEq/L Anion Gap 13.2 (5-15) BUN 26 H (7-18) mg/dL Creatinine 1.3 H (0.55-1.02) mg/dL Est Cr Clr Drug Dosing 44.70 mL/min Estimated GFR (MDRD) 42 (>60) mL/min BUN/Creatinine Ratio 20.0 H (14-18) Glucose 94 (74-106) mg/dL Lactic Acid 1.0 (0.4-2.0) mmol/L Calcium 9.0 (8.5-10.1) mg/dL Total Bilirubin 0.3 (0.2-1.0) mg/dL AST 80 H (15-37) U/L ALT 123 H (14-59) U/L Alkaline Phosphatase 210 H (46-116) U/L C-Reactive Protein 15.5 H* (<1.0) mg/dL Total Protein 7.1 (6.4-8.2) g/dl Albumin 2.7 L (3.4-5.0) g/dl Globulin 4.4 gm/dL Albumin/Globulin Ratio 0.6 L (1-2) Meds: Medications Generic Name Dose Route Start Last Admin Trade Name Freq PRN Reason Stop Dose Admin Vancomycin HCl 1 gm/ Sodium 250 mls @ 250 mls/hr 11/06/20 17:15 11/06/20 17:07 Chloride IV 11/06/20 19:14 250 mls/hr Q1H MAGALI Administration Sodium Chloride 10 ml 11/06/20 16:12 11/06/20 16:17 Saline Flush FLUSH 10 ml ASDIRECTED PRN Administration Keep Vein Open Discontinued Medications Generic Name Dose Route Start Last Admin Trade Name Freq PRN Reason Stop Dose Admin Vancomycin HCl 2 gm/ Sodium 250 mls @ 250 mls/hr 11/06/20 16:56 11/06/20 17:08 Chloride IV 11/06/20 17:55 Not Given ONETIME ONE - Re-Assessments/Exams Free Text/Narrative Re-Assessment/Exam: 11/06/20 17:04 I ordered an IV saline lock, blood cultures, labs, lactic acid and vancomycin 2 grams IV. Her WBC was slightly elevated at 11.06. Her Hgb was low at 9.7. Her creatinine is elevated at 1.3. Her AST is elevated at 80. Her ALT is elevated at 123. Her alk phos is elevated at 210. Her CRP is elevated at 15.5. 11/06/20 17:18 Her lactic acid is normal. I called Dr Graham and he agreed to the admission. Departure - Departure Time of Disposition: 17:20 Disposition: Admitted As Inpatient 64 Condition: Fair Clinical Impression: Cellulitis Qualifiers: Site of cellulitis: extremity Site of cellulitis of extremity: lower extremity Laterality: unspecified laterality Qualified Code(s): L03.119 - Cellulitis of unspecified part of limb - Discharge Information Referrals: Francy Kam MD [Primary Care Provider] - Forms: ED Department Discharge Sepsis Event Note (ED) - Evaluation Sepsis Screening Result: No Definite Risk - Focused Exam Vital Signs: Vital Signs Temp Pulse Resp BP Pulse Ox 11/06/20 15:39 98.9 F 90 16 163/102 H 98 - My Orders Last 24 Hours: My Active Orders 11/06/20 16:12 Sodium Chloride 0.9% [Saline Flush] 10 ml FLUSH ASDIRECTED PRN Peripheral IV Insertion Adult [OM.PC] Stat 11/06/20 16:13 Peripheral IV Care [RC] . DIRECTED 11/06/20 16:27 Blood Culture x2 Reflex Set [OM.PC] Stat 11/06/20 16:50 CULTURE BLOOD [BC] Stat 11/06/20 17:00 CULTURE BLOOD [BC] Stat 11/06/20 17:05 CORONAVIRUS COVID-19 PIERRE [MOLEC] Stat 11/06/20 17:15 Vancomycin [Vancocin] 1 gm Sodium Chloride 0.9% [Normal Saline (AdvBag)] 250 ml IV Q1H - Assessment/Plan Last 24 Hours: My Active Orders 11/06/20 16:12 Sodium Chloride 0.9% [Saline Flush] 10 ml FLUSH ASDIRECTED PRN Peripheral IV Insertion Adult [OM.PC] Stat 11/06/20 16:13 Peripheral IV Care [RC] . DIRECTED 11/06/20 16:27 Blood Culture x2 Reflex Set [OM.PC] Stat 11/06/20 16:50 CULTURE BLOOD [BC] Stat 11/06/20 17:00 CULTURE BLOOD [BC] Stat 11/06/20 17:05 CORONAVIRUS COVID-19 PIERRE [MOLEC] Stat 11/06/20 17:15 Vancomycin [Vancocin] 1 gm Sodium Chloride 0.9% [Normal Saline (AdvBag)] 250 ml IV Q1H
[2020-11-06] MEDS ORDERED: Ondansetron 4 MG/2 ML SDV IV PRN (20:15)
--- NOTE | 2020-11-06 20:29 | PCM.HP.2 ---
H&P History of Present Illness - General Date of Service: 11/06/20 Admit Problem/Dx: Admission Diagnosis/Problem Admission Diagnosis/Problem Cellulitis - History of Present Illness Initial Comments - Free Text/Narative: Patient presents to the emergency department with bilateral lower extremity edema cellulitis worse on the left. She was admitted at the end of June with left-sided cellulitis and treated with doxycycline. Patient was seen again today at [facility] for Unna boots secondary to her venous stasis and they noted that she had increased erythema up to her thigh. Recommendation was to send patient to the hospital for possible admission. Patient denies any fever, chills, or night sweats. She denies any significant pain, shortness of breath, or other respiratory symptoms. She has a history of hypertension and venous stasis dermatitis/chronic cellulitis. Left Leg Pain Score (Numeric/FACES): 8 - Related Data Allergies/Adverse Reactions: Allergies Allergy/AdvReac Type Severity Reaction Status Date / Time amoxicillin [From Augmentin] Allergy Severe Rash Verified 11/06/20 16:07 castor oil Allergy Severe Anaphylactic Verified 11/06/20 15:39 Shock clavulanic acid Allergy Severe Rash Verified 11/06/20 16:07 [From Augmentin] levofloxacin [From Levaquin] Allergy Severe Rash Verified 11/06/20 16:07 losartan Allergy Severe Rash Verified 11/06/20 16:07 Penicillins Allergy Severe Rash Verified 11/06/20 16:07 povidone-iodine Allergy Severe Cannot Verified 11/06/20 16:07 Remember sulfamethoxazole Allergy Severe Rash Verified 11/06/20 16:07 [From Bactrim] trimethoprim [From Bactrim] Allergy Severe Rash Verified 11/06/20 16:07 warfarin [From Coumadin] Allergy Severe Rash Verified 11/06/20 16:07 Home Medications: Home Meds Acetaminophen [Tylenol] 325 mg PO DAILY PRN 03/26/19 [History] Metoprolol Succinate [Toprol Xl] 50 mg PO DAILY 03/26/19 [History] Pantoprazole [ProTONIX] 40 mg PO DAILY 03/26/19 [History] Potassium Chloride 20 meq PO DAILY 03/26/19 [History] Spironolactone [Aldactone] 100 mg PO DAILY 03/26/19 [History] amLODIPine [Norvasc] 10 mg PO DAILY 03/26/19 [History] traMADol HCl [Tramadol HCl] 50 mg PO TID PRN 03/26/19 [History] Furosemide [Lasix] 40 mg PO BID 07/03/20 [History] Cetirizine [ZyrTEC] 10 mg PO DAILY 11/06/20 [History] Clotrimazole [Clotrimazole 1%] 1 appful TOP DAILY PRN 11/06/20 [History] Famotidine 10 mg PO BID 11/06/20 [History] Fluticasone Propionate [Flonase] 1 spray [place] BID 11/06/20 [History] Loratadine 10 mg PO DAILY 11/06/20 [History] Neomycin/Bacitracin/Polymyxinb [Antibiotic Ointment] 1 applic TOP DAILY 11/06/20 [History] Nystatin 1 each TOP BID PRN 11/06/20 [History] Past Medical History HEENT History: Reports: Impaired Vision Cardiovascular History: Reports: None, Hypertension Other Cardiovascular History: Heart murmur when younger, states "every now and then doctors can hear it." Respiratory History: Reports: Other (See Below) Other Respiratory History: lung cancer-nodules benign Gastrointestinal History: Reports: GERD Genitourinary History: Reports: Other (See Below) Other Genitourinary History: ovarian cancer Musculoskeletal History: Reports: Arthritis Oncologic (Cancer) History: Reports: Lung, Ovarian Other Oncologic History: had chemo for ovarian cancer Dermatologic History: Reports: Cellulitis, Chronic Cellulitis, Venous Stasis Dermatitis Social & Family History - Family History HEENT: Reports: Macular Degeneration Other HEENT Family History: Both parents. Cardiac: Reports: Hypertension Other Cardiac Family History: HTN in both parents. Other Neurological Family History: Father- stroke Endocrine/Metabolic: Reports: Diabetes, type II Other Endocrine/Metabolic Family History: Both parents. - Tobacco Use Tobacco Use Status *Q: Never Tobacco User - Caffeine Use Caffeine Use: Reports: None Other Caffeine Use: coke - Recreational Drug Use Recreational Drug Use: No H&P Review of Systems - Review of Systems: Review Of Systems: Comprehensive ROS is negative, except as noted in HPI. Exam - Exam Exam: See Below - Vital Signs Vital Signs: Last Vital Signs Temp 98.1 F 11/06/20 19:20 Pulse 73 11/06/20 19:20 Resp 16 11/06/20 19:20 BP 121/74 11/06/20 19:20 Pulse Ox 100 11/06/20 19:20 Weight: 64 lb - Exam Quality Assessment: No: Supplemental Oxygen General: Alert, Oriented, 4 HEENT: Conjunctiva Clear, EOMI, Hearing Intact, Mucosa Moist & [place], Normal Nasal Septum Neck: Supple, Trachea Midline, 2 Lungs: Clear to Auscultation, Normal Respiratory Effort Cardiovascular: Regular Rate, Regular Rhythm GI/Abdominal Exam: Normal Bowel Sounds, Soft, Non-Tender, No Organomegaly, No Abnormal Bruit, No Mass, Distended (Morbidly obese) Extremities: Normal Capillary Refill, Pedal Edema (4+ pitting edema bilaterally up to upper thigh.), Other (Significant erythema of the left lower extremity from her foot up to her upper leg. Several areas of fluid-filled papules on her left leg and a couple on her right. There are is drainage where some of them have ruptured. Right lower extremity is also erythematous.) Peripheral Pulses: 0: Posterior Tibial (L) (Unable to obtain pulses secondary to severe edema), Posterior Tibial (R), Dorsalis Pedis (L), Dorsalis Pedis (R) Skin: Other (As above) Neuro Extensive - Mental Status: Alert, Oriented x3, Normal Mood/Affect, Normal Cognition, Memory Intact Psychiatric: Alert, Normal Affect, Normal Mood - Patient Data Lab Results Last 24 hrs: Laboratory Results - last 24 hr 11/06/20 11/06/20 11/06/20 Range/Units 16:25 16:25 16:25 WBC 11.06 H (3.98-10.04) K/mm3 RBC 3.48 L (3.98-5.22) M/mm3 Hgb 9.7 L (11.2-15.7) gm/dl Hct 32.7 L (34.1-44.9) % MCV 94.0 (79.4-94.8) fl MCH 27.9 (25.6-32.2) pg MCHC 29.7 L (32.2-35.5) g/dl RDW Std Deviation 47.4 H (36.4-46.3) fL Plt Count 288 (182-369) K/mm3 MPV 9.4 (9.4-12.3) fl Neut % (Auto) 84.2 H (34.0-71.1) % Lymph % (Auto) 8.2 L (19.3-51.7) % Early % (Auto) 6.4 (4.7-12.5) % Eos % (Auto) 0.9 (0.7-5.8) Baso % (Auto) 0.1 (0.1-1.2) % Neut # (Auto) 9.31 H (1.56-6.13) K/mm3 Lymph # (Auto) 0.91 L (1.18-3.74) K/mm3 Early # (Auto) 0.71 H (0.24-0.36) K/mm3 Eos # (Auto) 0.10 (0.04-0.36) K/mm3 Baso # (Auto) 0.01 (0.01-0.08) K/mm3 Manual Slide Review Abnormal smear Sodium 140 (136-145) mEq/L Potassium 4.2 (3.5-5.1) mEq/L Chloride 106 (98-107) mEq/L Carbon Dioxide 25 (21-32) mEq/L Anion Gap 13.2 (5-15) BUN 26 H (7-18) mg/dL Creatinine 1.3 H (0.55-1.02) mg/dL Est Cr Clr Drug Dosing 44.70 mL/min Estimated GFR (MDRD) 42 (>60) mL/min BUN/Creatinine Ratio 20.0 H (14-18) Glucose 94 (74-106) mg/dL Lactic Acid 1.0 (0.4-2.0) mmol/L Calcium 9.0 (8.5-10.1) mg/dL Total Bilirubin 0.3 (0.2-1.0) mg/dL AST 80 H (15-37) U/L ALT 123 H (14-59) U/L Alkaline Phosphatase 210 H (46-116) U/L C-Reactive Protein 15.5 H* (<1.0) mg/dL Total Protein 7.1 (6.4-8.2) g/dl Albumin 2.7 L (3.4-5.0) g/dl Globulin 4.4 gm/dL Albumin/Globulin Ratio 0.6 L (1-2) SARS-CoV-2 RNA (PIERRE) (NEGATIVE) 01/04/21 Range/Units 17:30 WBC (3.98-10.04) K/mm3 RBC (3.98-5.22) M/mm3 Hgb (11.2-15.7) gm/dl Hct (34.1-44.9) % MCV (79.4-94.8) fl MCH (25.6-32.2) pg MCHC (32.2-35.5) g/dl RDW Std Deviation (36.4-46.3) fL Plt Count (182-369) K/mm3 MPV (9.4-12.3) fl Neut % (Auto) (34.0-71.1) % Lymph % (Auto) (19.3-51.7) % Early % (Auto) (4.7-12.5) % Eos % (Auto) (0.7-5.8) Baso % (Auto) (0.1-1.2) % Neut # (Auto) (1.56-6.13) K/mm3 Lymph # (Auto) (1.18-3.74) K/mm3 Early # (Auto) (0.24-0.36) K/mm3 Eos # (Auto) (0.04-0.36) K/mm3 Baso # (Auto) (0.01-0.08) K/mm3 Manual Slide Review Sodium (136-145) mEq/L Potassium (3.5-5.1) mEq/L Chloride (98-107) mEq/L Carbon Dioxide (21-32) mEq/L Anion Gap (5-15) BUN (7-18) mg/dL Creatinine (0.55-1.02) mg/dL Est Cr Clr Drug Dosing mL/min Estimated GFR (MDRD) (>60) mL/min BUN/Creatinine Ratio (14-18) Glucose (74-106) mg/dL Lactic Acid (0.4-2.0) mmol/L Calcium (8.5-10.1) mg/dL Total Bilirubin (0.2-1.0) mg/dL AST (15-37) U/L ALT (14-59) U/L Alkaline Phosphatase (46-116) U/L C-Reactive Protein (<1.0) mg/dL Total Protein (6.4-8.2) g/dl Albumin (3.4-5.0) g/dl Globulin gm/dL Albumin/Globulin Ratio (1-2) SARS-CoV-2 RNA (PIERRE) Negative (NEGATIVE) Result Diagrams: 11/07/20 04:30 11/07/20 04:30 Sepsis Event Note - Evaluation Sepsis Screening Result: No Definite Risk - Focused Exam Vital Signs: Vital Signs Temp Temp Pulse Pulse Resp BP BP 11/06/20 19:20 98.1 F 73 16 121/74 11/06/20 17:48 63 16 133/78 11/06/20 15:39 98.9 F 90 16 163/102 H Pulse Ox 11/06/20 19:20 100 11/06/20 17:48 98 11/06/20 15:39 98 - Problem List (1) Edema due to hypoalbuminemia SNOMED Code(s): 391351621, 954546793 ICD Code: E88.09 - OTH DISORDERS OF PLASMA-PROTEIN METABOLISM, NEC Status: Acute Current Visit: Yes (2) CHF (congestive heart failure) SNOMED Code(s): 37608715 ICD Code: I50.9 - HEART FAILURE, UNSPECIFIED Status: Acute Priority: High Current Visit: Yes Qualifiers: Heart failure type: right-sided Heart failure chronicity: unspecified Qualified Code(s): I50.810 - Right heart failure, unspecified (3) Cellulitis SNOMED Code(s): 715604341 ICD Code: L03.90 - CELLULITIS, UNSPECIFIED Status: Acute Current Visit: Yes Qualifiers: Site of cellulitis: extremity Site of cellulitis of extremity: lower extremity Laterality: unspecified laterality Qualified Code(s): L03.119 - Cellulitis of unspecified part of limb (4) Venous stasis dermatitis SNOMED Code(s): 63587416 ICD Code: I87.2 - VENOUS INSUFFICIENCY (CHRONIC) (PERIPHERAL) Status: Acute Current Visit: Yes Problem List Initiated/Reviewed/Updated: Yes Orders Last 24hrs: Active Orders 24 hr Category Date Time Status Patient Status [ADT] Routine ADT 11/06/20 18:30 Active Oxygen Therapy [RC] PRN Care 11/06/20 20:15 Ordered Up With Assistance [RC] ASDIRECTED Care 11/06/20 20:15 Ordered VTE/DVT Education [RC] PER UNIT ROUTINE Care 11/06/20 20:15 Ordered Vital Signs [RC] Q4H Care 11/06/20 20:15 Ordered Regular Diet [DIET] Diet 11/07/20 Breakfast Ordered C-REACTIVE PROTEIN [CHEM] AM Lab 11/07/20 05:11 Ordered CBC WITH AUTO DIFF [HEME] AM Lab 11/07/20 05:11 Ordered CMP [COMPREHENSIVE METABOLIC PN,CMP] [CHEM] AM Lab 11/07/20 05:11 Ordered CULTURE BLOOD [BC] Stat Lab 11/06/20 16:50 Received CULTURE BLOOD [BC] Stat Lab 11/06/20 17:00 Received MAGNESIUM [CHEM] AM Lab 11/07/20 05:11 Ordered METH-RESIST S.AUR,MRSA BY PCR [MOLEC] Routine Lab 11/06/20 19:00 Received PHOSPHORUS [CHEM] AM Lab 11/07/20 05:11 Ordered PRO B-TYPE NATRIUR PEPT,BNPPRO [CHEM] Stat Lab 11/06/20 19:47 Ordered Acetaminophen [TylenoL] Med 11/06/20 20:15 Ordered 650 mg PO Q4H PRN Enoxaparin [Lovenox] Med 11/07/20 09:00 Ordered 40 mg SUBCUT DAILY Ondansetron [Zofran] Med 11/06/20 20:15 Ordered 4 mg IV Q4H PRN Pharmacy to Dose - Vancomycin Med 11/06/20 20:30 Ordered 1 dose .XX ASDIRECTED Sodium Chloride 0.9% [Saline Flush] Med 11/06/20 16:12 Active 10 ml FLUSH ASDIRECTED PRN Blood Culture x2 Reflex Set [OM.PC] Stat Oth 11/06/20 16:27 Ordered Peripheral IV Insertion Adult [OM.PC] Stat Oth 11/06/20 16:12 Ordered Resuscitation Status Routine Resus Stat 11/06/20 20:15 Ordered Medication Orders Acetaminophen (Tylenol) 650 mg PO Q4H PRN PRN Reason: Pain (Mild 1-3)/fever Enoxaparin Sodium (Lovenox) 40 mg SUBCUT DAILY MAGALI Ondansetron HCl (Zofran) 4 mg IV Q4H PRN PRN Reason: Nausea/Vomiting Sodium Chloride (Saline Flush) 10 ml FLUSH ASDIRECTED PRN PRN Reason: Keep Vein Open Last Admin: 11/06/20 16:17 Dose: 10 ml Documented by: EBERELI Vancomycin HCl (Pharmacy To Dose - Vancomycin) 1 dose .XX ASDIRECTED [facility] Assessment/Plan Comment:: Assessment 55-year-old female with history of chronic lower extremity venous stasis and cellulitis presents to the emergency department from [facility] with worsening lower extremity cellulitis. * Patient was admitted and treated here at the end of June for similar symptoms. * WBC 11.0 with a few toxic granules and absolute neutrophil count of 9.31 * Lactic acid is normal at 1.0 * C-reactive protein 15.5 * Procalcitonin pending * Blood cultures done in the emergency department * Vancomycin started in the emergency department Uncontrolled hypertension Elevated proBNP, possible CHF * Blood pressure on presentation was 163/102 * On Toprol-XL, amlodipine, spironolactone, and Lasix as outpatient * Amlodipine can worsen edema * No MARCE or ARB * No echocardiogram available Chronic stage III renal insufficiency * Estimated GFR 42 * Creatinine 1.3 * Likely some degree of acute on chronic renal insufficiency * History of hypertension Transaminitis * AST and ALT are elevated at 80 and 123 respectively. This appears to be new. * Alkaline phosphatase is stable at 210 from previous admissions. * Total bilirubin normal at 0.3 * Albumin significantly decreased at 2.7, unknown cause Hypoalbuminemiachronic * Unknown cause of low albumin. * Hypoalbuminemia appears to be chronic with her last albumin available between 2.4 and 3.0 on admission in June. * No current UA to see if there is any albumin loss Plan * Admit to medical floor * Continue vancomycin * Increase Lasix to 40 mg IV twice daily * Continue spironolactone at 100 mg daily * Strict I's and O's and daily weights * Follow-up morning labs * Follow blood cultures and liver function * Urine for protein to rule out proteinuria * Dietary consult * CODE STATUS: Full code * VTE prophylaxis with Lovenox - Mortality Measure Prognosis:: Good
[2020-11-06] MEDS: Acetaminophen 325 MG Tab PO PRN (20:47)
[2020-11-06] MEDS ORDERED: Furosemide 40 MG/4 ML VIAL IVPUSH ONE (21:18)
[2020-11-07] MEDS: traMADol 50 MG Tab PO PRN ×2 (00:12→22:58)
[2020-11-07] MEDS: Acetaminophen 325 MG Tab PO PRN ×4 (03:14→20:20)
[2020-11-07] MEDS: Furosemide 40 MG/4 ML VIAL IVPUSH SCH ×2 (06:54→13:19)
[2020-11-07] MEDS: Potassium Chloride 20 MEQ Tab.ER PO SCH (09:06)
[2020-11-07] MEDS: Spironolactone 100 MG Tab PO SCH (09:06)
[2020-11-07] MEDS: Famotidine 10 MG Tab PO SCH ×2 (09:06→20:05)
[2020-11-07] MEDS: Metoprolol Succinate 50 MG Tab.ER PO SCH (09:07)
[2020-11-07] MEDS: amLODIPine 5 MG Tab PO SCH (09:08)
[2020-11-07] MEDS: Pantoprazole 40 MG Tab.CR PO SCH (09:08)
[2020-11-07] MEDS: Loratadine 10 MG Tab PO SCH (09:09)
[2020-11-07] MEDS: Enoxaparin 40 MG/0.4 ML Syringe SUBCUT SCH (09:09)
[2020-11-07] MEDS: Fluticasone Propionate Nasal Spray 16 GM Bottle NAS SCH ×2 (09:10→20:05)
--- NOTE | 2020-11-07 14:18 | PCM.PN ---
- General Info Date of Service: 11/07/20 Admission Dx/Problem (Free Text): Admission Diagnosis/Problem Admission Diagnosis/Problem Cellulitis Subjective Update: Patient states that she is feeling better this morning. She denies any shortness of breath. Legs are feeling better, but her chronic left knee pain is still present. No fever or chills. Appetite is good. Functional Status: Reports: Pain Controlled - Review of Systems General: Reports: No Symptoms HEENT: Reports: No Symptoms Pulmonary: Reports: No Symptoms Cardiovascular: Reports: No Symptoms Gastrointestinal: Reports: No Symptoms Musculoskeletal: Reports: Joint Pain (Left knee) Skin: Reports: No Symptoms Neurological: Reports: No Symptoms Psychiatric: Reports: No Symptoms - Patient Data Vitals - Most Recent: Last Vital Signs Temp 98.1 F 11/07/20 10:59 Pulse 58 L 11/07/20 10:59 Resp 18 11/07/20 10:59 BP 126/76 11/07/20 10:59 Pulse Ox 97 11/07/20 10:59 Weight - Most Recent: 308 lb 12.8 oz I&O - Last 24 Hours: Intake & Output 11/06/20 11/07/20 11/07/20 22:59 06:59 14:59 Intake Total 800 240 Output Total 2700 Balance -1900 240 Lab Results Last 24 Hours: Laboratory Results - last 24 hr 11/06/20 11/06/20 11/06/20 Range/Units 16:25 16:25 16:25 WBC 11.06 H (3.98-10.04) K/mm3 RBC 3.48 L (3.98-5.22) M/mm3 Hgb 9.7 L (11.2-15.7) gm/dl Hct 32.7 L (34.1-44.9) % MCV 94.0 (79.4-94.8) fl MCH 27.9 (25.6-32.2) pg MCHC 29.7 L (32.2-35.5) g/dl RDW Std Deviation 47.4 H (36.4-46.3) fL Plt Count 288 (182-369) K/mm3 MPV 9.4 (9.4-12.3) fl Neut % (Auto) 84.2 H (34.0-71.1) % Lymph % (Auto) 8.2 L (19.3-51.7) % [place] % (Auto) 6.4 (4.7-12.5) % Eos % (Auto) 0.9 (0.7-5.8) Baso % (Auto) 0.1 (0.1-1.2) % Neut # (Auto) 9.31 H (1.56-6.13) K/mm3 Lymph # (Auto) 0.91 L (1.18-3.74) K/mm3 [place] # (Auto) 0.71 H (0.24-0.36) K/mm3 Eos # (Auto) 0.10 (0.04-0.36) K/mm3 Baso # (Auto) 0.01 (0.01-0.08) K/mm3 Manual Slide Review Abnormal smear Sodium 140 (136-145) mEq/L Potassium 4.2 (3.5-5.1) mEq/L Chloride 106 (98-107) mEq/L Carbon Dioxide 25 (21-32) mEq/L Anion Gap 13.2 (5-15) BUN 26 H (7-18) mg/dL Creatinine 1.3 H (0.55-1.02) mg/dL Est Cr Clr Drug Dosing 44.70 mL/min Estimated GFR (MDRD) 42 (>60) mL/min BUN/Creatinine Ratio 20.0 H (14-18) Glucose 94 (74-106) mg/dL Lactic Acid 1.0 (0.4-2.0) mmol/L Calcium 9.0 (8.5-10.1) mg/dL Phosphorus (2.6-4.7) mg/dL Magnesium (1.8-2.4) mg/dl Total Bilirubin 0.3 (0.2-1.0) mg/dL AST 80 H (15-37) U/L ALT 123 H (14-59) U/L Alkaline Phosphatase 210 H (46-116) U/L C-Reactive Protein 15.5 H* (<1.0) mg/dL NT-Pro-B Natriuret Pep (0-125) pg/mL Total Protein 7.1 (6.4-8.2) g/dl Albumin 2.7 L (3.4-5.0) g/dl Globulin 4.4 gm/dL Albumin/Globulin Ratio 0.6 L (1-2) Urine Color (Yellow) Urine Appearance (Clear) Urine pH (5.0-8.0) Ur Specific [place] (1.005-1.030) Urine Protein (Negative) Urine Glucose (UA) (Negative) Urine Ketones (Negative) Urine Occult Blood (Negative) Urine Nitrite (Negative) Urine Bilirubin (Negative) Urine Urobilinogen (0.2-1.0) Ur Leukocyte Esterase (Negative) SARS-CoV-2 RNA (PIERRE) (NEGATIVE) MRSA (PCR) 11/06/20 11/06/20 11/06/20 Range/Units 17:30 19:00 20:09 WBC (3.98-10.04) K/mm3 RBC (3.98-5.22) M/mm3 Hgb (11.2-15.7) gm/dl Hct (34.1-44.9) % MCV (79.4-94.8) fl MCH (25.6-32.2) pg MCHC (32.2-35.5) g/dl RDW Std Deviation (36.4-46.3) fL Plt Count (182-369) K/mm3 MPV (9.4-12.3) fl Neut % (Auto) (34.0-71.1) % Lymph % (Auto) (19.3-51.7) % [place] % (Auto) (4.7-12.5) % Eos % (Auto) (0.7-5.8) Baso % (Auto) (0.1-1.2) % Neut # (Auto) (1.56-6.13) K/mm3 Lymph # (Auto) (1.18-3.74) K/mm3 [place] # (Auto) (0.24-0.36) K/mm3 Eos # (Auto) (0.04-0.36) K/mm3 Baso # (Auto) (0.01-0.08) K/mm3 Manual Slide Review Sodium (136-145) mEq/L Potassium (3.5-5.1) mEq/L Chloride (98-107) mEq/L Carbon Dioxide (21-32) mEq/L Anion Gap (5-15) BUN (7-18) mg/dL Creatinine (0.55-1.02) mg/dL Est Cr Clr Drug Dosing mL/min Estimated GFR (MDRD) (>60) mL/min BUN/Creatinine Ratio (14-18) Glucose (74-106) mg/dL Lactic Acid (0.4-2.0) mmol/L Calcium (8.5-10.1) mg/dL Phosphorus (2.6-4.7) mg/dL Magnesium (1.8-2.4) mg/dl Total Bilirubin (0.2-1.0) mg/dL AST (15-37) U/L ALT (14-59) U/L Alkaline Phosphatase (46-116) U/L C-Reactive Protein (<1.0) mg/dL NT-Pro-B Natriuret Pep 781 H (0-125) pg/mL Total Protein (6.4-8.2) g/dl Albumin (3.4-5.0) g/dl Globulin gm/dL Albumin/Globulin Ratio (1-2) Urine Color (Yellow) Urine Appearance (Clear) Urine pH (5.0-8.0) Ur Specific [place] (1.005-1.030) Urine Protein (Negative) Urine Glucose (UA) (Negative) Urine Ketones (Negative) Urine Occult Blood (Negative) Urine Nitrite (Negative) Urine Bilirubin (Negative) Urine Urobilinogen (0.2-1.0) Ur Leukocyte Esterase (Negative) SARS-CoV-2 RNA (PIERRE) Negative (NEGATIVE) MRSA (PCR) Positive H 11/06/20 11/07/20 11/07/20 Range/Units 23:55 04:30 04:30 WBC 9.13 (3.98-10.04) K/mm3 RBC 3.30 L (3.98-5.22) M/mm3 Hgb 9.1 L (11.2-15.7) gm/dl Hct 31.0 L (34.1-44.9) % MCV 93.9 (79.4-94.8) fl MCH 27.6 (25.6-32.2) pg MCHC 29.4 L (32.2-35.5) g/dl RDW Std Deviation 47.5 H (36.4-46.3) fL Plt Count 279 (182-369) K/mm3 MPV 9.9 (9.4-12.3) fl Neut % (Auto) 77.8 H (34.0-71.1) % Lymph % (Auto) 12.4 L (19.3-51.7) % [place] % (Auto) 7.3 (4.7-12.5) % Eos % (Auto) 2.1 (0.7-5.8) Baso % (Auto) 0.2 (0.1-1.2) % Neut # (Auto) 7.10 H (1.56-6.13) K/mm3 Lymph # (Auto) 1.13 L (1.18-3.74) K/mm3 [place] # (Auto) 0.67 H (0.24-0.36) K/mm3 Eos # (Auto) 0.19 (0.04-0.36) K/mm3 Baso # (Auto) 0.02 (0.01-0.08) K/mm3 Manual Slide Review Abnormal smear Sodium 141 (136-145) mEq/L Potassium 4.0 (3.5-5.1) mEq/L Chloride 106 (98-107) mEq/L Carbon Dioxide 26 (21-32) mEq/L Anion Gap 13.0 (5-15) BUN 25 H (7-18) mg/dL Creatinine 1.3 H (0.55-1.02) mg/dL Est Cr Clr Drug Dosing 41.23 mL/min Estimated GFR (MDRD) 42 (>60) mL/min BUN/Creatinine Ratio 19.2 H (14-18) Glucose 93 (74-106) mg/dL Lactic Acid (0.4-2.0) mmol/L Calcium 8.9 (8.5-10.1) mg/dL Phosphorus 3.0 (2.6-4.7) mg/dL Magnesium 2.2 (1.8-2.4) mg/dl Total Bilirubin 0.3 (0.2-1.0) mg/dL AST 48 H (15-37) U/L ALT 100 H (14-59) U/L Alkaline Phosphatase 183 H (46-116) U/L C-Reactive Protein 10.5 H* (<1.0) mg/dL NT-Pro-B Natriuret Pep (0-125) pg/mL Total Protein 6.7 (6.4-8.2) g/dl Albumin 2.5 L (3.4-5.0) g/dl Globulin 4.2 gm/dL Albumin/Globulin Ratio 0.6 L (1-2) Urine Color Light yellow (Yellow) Urine Appearance Clear (Clear) Urine pH 6.0 (5.0-8.0) Ur Specific [place] 1.015 (1.005-1.030) Urine Protein Negative (Negative) Urine Glucose (UA) Negative (Negative) Urine Ketones Negative (Negative) Urine Occult Blood Negative (Negative) Urine Nitrite Negative (Negative) Urine Bilirubin Negative (Negative) Urine Urobilinogen 0.2 (0.2-1.0) Ur Leukocyte Esterase Negative (Negative) SARS-CoV-2 RNA (PIERRE) (NEGATIVE) MRSA (PCR) Med Orders - Current: Current Medications Acetaminophen (Tylenol) 650 mg PO Q4H PRN PRN Reason: Pain (Mild 1-3)/fever Last Admin: 11/07/20 09:14 Dose: 650 mg Documented by: Amlodipine Besylate (Norvasc) 10 mg PO DAILY [facility] Last Admin: 11/07/20 09:08 Dose: 10 mg Documented by: Enoxaparin Sodium (Lovenox) 40 mg SUBCUT DAILY [facility] Last Admin: 11/07/20 09:09 Dose: 40 mg Documented by: Famotidine (Pepcid) 10 mg PO BID [facility] Last Admin: 11/07/20 09:06 Dose: 10 mg Documented by: Fluticasone Propionate (Flonase) 0 gm [place] BID [facility] Last Admin: 11/07/20 09:10 Dose: Not Given Documented by: Furosemide (Lasix) 40 mg IVPUSH BIDDIURETIC [facility] Last Admin: 11/07/20 13:19 Dose: 40 mg Documented by: Vancomycin HCl 1 gm/Vancomycin HCl 500 mg/ Sodium Chloride 500 mls @ 333.333 mls/hr IV Q24H [facility] Loratadine (Claritin) 10 mg PO DAILY [facility] Last Admin: 11/07/20 09:09 Dose: 10 mg Documented by: Metoprolol Succinate (Toprol Xl) 50 mg PO DAILY [facility] Last Admin: 11/07/20 09:07 Dose: 50 mg Documented by: Ondansetron HCl (Zofran) 4 mg IV Q4H PRN PRN Reason: Nausea/Vomiting Pantoprazole Sodium (Protonix) 40 mg PO ACBREAKFAST [facility] Last Admin: 11/07/20 09:08 Dose: 40 mg Documented by: Potassium Chloride (Klor-Con M20) 20 meq PO DAILY [facility] Last Admin: 11/07/20 09:06 Dose: 20 meq Documented by: Sodium Chloride (Saline Flush) 10 ml FLUSH ASDIRECTED PRN PRN Reason: Keep Vein Open Last Admin: 11/06/20 16:17 Dose: 10 ml Documented by: Spironolactone (Aldactone) 100 mg PO DAILY [facility] Last Admin: 11/07/20 09:06 Dose: 100 mg Documented by: Tramadol HCl (Ultram) 50 mg PO TID PRN PRN Reason: Pain Last Admin: 11/07/20 00:12 Dose: 50 mg Documented by: Vancomycin HCl (Pharmacy To Dose - Vancomycin) 1 dose .XX ASDIRECTED [facility]I Discontinued Medications Furosemide (Lasix) 40 mg IVPUSH NOW ONE Stop: 11/06/20 21:19 Last Admin: 11/06/20 21:40 Dose: 40 mg Documented by: Vancomycin HCl 2 gm/ Sodium (Chloride) 250 mls @ 250 mls/hr IV ONETIME ONE Stop: 11/06/20 17:55 Last Admin: 11/06/20 17:08 Dose: Not Given Documented by: Vancomycin HCl 1 gm/ Sodium (Chloride) 250 mls @ 250 mls/hr IV Q1H [facility] Stop: 11/06/20 19:14 Last Admin: 11/06/20 18:10 Dose: 250 mls/hr Documented by: - Exam Quality Assessment: No: Supplemental Oxygen HEENT: Pupils Equal, Mucous Membr. Moist/[place] Neck: Supple Lungs: Clear to Auscultation, Normal Respiratory Effort Cardiovascular: Regular Rate, Regular Rhythm GI/Abdominal Exam: Normal Bowel Sounds, Soft, Non-Tender, No Distention Extremities: Pedal Edema (4+ pitting edema lower extremities bilaterally) Skin: Other (Erythema of the bilateral lower extremities left worse than right. No significant changes overnight. Continued fluid-filled vesicles bilaterally.) Sepsis Event Note - Evaluation Sepsis Screening Result: No Definite Risk - Focused Exam Vital Signs: Vital Signs Temp Pulse Resp BP Pulse Ox 11/07/20 10:59 98.1 F 58 L 18 126/76 97 11/07/20 09:08 157/89 H 11/07/20 09:07 72 157/89 H 11/07/20 09:05 157/89 H 11/07/20 07:25 97.9 F 69 16 114/97 H 100 11/07/20 03:17 97.9 F 56 L 16 145/77 H 100 - Problem List & Annotations (1) Edema due to hypoalbuminemia SNOMED Code(s): 743520482, 483241806 Code(s): E88.09 - OTH DISORDERS OF PLASMA-PROTEIN METABOLISM, NEC Status: Acute Current Visit: Yes (2) CHF (congestive heart failure) SNOMED Code(s): 35268054 Code(s): I50.9 - HEART FAILURE, UNSPECIFIED Status: Acute Priority: High Current Visit: Yes Qualifiers: Heart failure type: right-sided Heart failure chronicity: unspecified Qualified Code(s): I50.810 - Right heart failure, unspecified (3) Cellulitis SNOMED Code(s): 713091454 Code(s): L03.90 - CELLULITIS, UNSPECIFIED Status: Acute Current Visit: Yes Qualifiers: Site of cellulitis: extremity Site of cellulitis of extremity: lower extremity Laterality: unspecified laterality Qualified Code(s): L03.119 - Cellulitis of unspecified part of limb (4) Venous stasis dermatitis SNOMED Code(s): 04797761 Code(s): I87.2 - VENOUS INSUFFICIENCY (CHRONIC) (PERIPHERAL) Status: Acute Current Visit: Yes - Problem List Review Problem List Initiated/Reviewed/Updated: Yes - My Orders Last 24 Hours: My Active Orders 11/06/20 20:15 Oxygen Therapy [RC] PRN Up With Assistance [RC] BID VTE/DVT Education [RC] DAILY Vital Signs [RC] Q4HR Acetaminophen [TylenoL] 650 mg PO Q4H PRN Ondansetron [Zofran] 4 mg IV Q4H PRN Resuscitation Status Routine 11/06/20 20:30 Pharmacy to Dose - Vancomycin 1 dose .XX ASDIRECTED 11/06/20 21:16 traMADol [Ultram] 50 mg PO TID PRN 11/07/20 06:00 Furosemide [Lasix] 40 mg IVPUSH BIDDIURETIC 11/07/20 Breakfast Regular Diet [DIET] 11/07/20 09:00 Enoxaparin [Lovenox] 40 mg SUBCUT DAILY Famotidine [Pepcid] 10 mg PO BID Fluticasone Propionate [Flonase] 0 gm [place] BID Loratadine [Claritin] 10 mg PO DAILY Metoprolol Succinate [Toprol XL] 50 mg PO DAILY Pantoprazole [ProTONIX] 40 mg PO ACBREAKFAST Potassium Chloride [Klor-Con M20] 20 meq PO DAILY Spironolactone [Aldactone] 100 mg PO DAILY amLODIPine [Norvasc] 10 mg PO DAILY 11/07/20 18:00 Vancomycin 1 gm Vancomycin 500 mg Sodium Chloride 0.9% [Normal Saline] 500 ml IV Q24H - Plan Plan:: Assessment 55-year-old female with history of chronic lower extremity venous stasis and cellulitis presents to the emergency department from [facility] with worsening lower extremity cellulitis. * Patient was admitted and treated here at the end of June for similar symptoms. * WBC 11.0 with a few toxic granules and absolute neutrophil count of 9.31 * Lactic acid is normal at 1.0 * C-reactive protein 15.5 * Procalcitonin pending * Blood cultures done in the emergency department * Vancomycin started in the emergency department Uncontrolled hypertension Elevated proBNP, possible CHF * Blood pressure on presentation was 163/102 * On Toprol-XL, amlodipine, spironolactone, and Lasix as outpatient * Amlodipine can worsen edema * No MARCE or ARB * No echocardiogram available Chronic stage III renal insufficiency * Estimated GFR 42 * Creatinine 1.3 * Likely some degree of acute on chronic renal insufficiency * History of hypertension Transaminitis * AST and ALT are elevated at 80 and 123 respectively. This appears to be new. * Alkaline phosphatase is stable at 210 from previous admissions. * Total bilirubin normal at 0.3 * Albumin significantly decreased at 2.7, unknown cause Hypoalbuminemiachronic * Unknown cause of low albumin. * Hypoalbuminemia appears to be chronic with her last albumin available between 2.4 and 3.0 on admission in June. * No current UA to see if there is any albumin loss Plan * Admit to medical floor * Continue vancomycin * Increase Lasix to 40 mg IV twice daily * Continue spironolactone at 100 mg daily * Strict I's and O's and daily weights * Follow-up morning labs * Follow blood cultures and liver function * Urine for protein to rule out proteinuria * Dietary consult * CODE STATUS: Full code * VTE prophylaxis with Lovenox 11/07/2020 55-year-old female with history of lower extremity edema and MRSA cellulitis with no significant change overnight. White count has improved to 9.1 overnight and she continues on Covid. MRSA screening was positive. Transaminitis has improved with AST of 48 and ALT of 100. Alkaline phosphatase has also decreased to 183. This is likely reactive secondary to the infection. CRP is down to 10.5. Generally patient is improving with the weight loss and improvement in her overall condition. Albumin continues to be low at 2.5, but urine protein was negative. Continue vancomycin. Continue IV Lasix and consider switching to oral tomorrow. Echocardiogram done this mornin. Mild concentric left ventricular hypertrophy. 2. Normal pattern of LV diastolic filling. 3. Grossly normal left ventricular systolic function with estimated ejection fraction of 60%. Regional wall motion abnormalities cannot be excluded. 4. Mild mitral valve regurgitation. 5. Trace tricuspid valve regurgitation. 6. The right ventricular systolic pressure is normal at 34.4 mmHg. 7. Technically limited study. Lower extremity edema does not appear to be secondary to significant heart failure or proteinuria.
[2020-11-07] MEDS ORDERED: Vancomycin 1 GM, Vancomycin 500 MG in Sodium Chloride 0.9% 500 ML IV SCH (18:00)
[2020-11-08] MEDS: Acetaminophen 325 MG Tab PO PRN ×3 (02:41→22:41)
[2020-11-08] MEDS: Pantoprazole 40 MG Tab.CR PO SCH (06:51)
[2020-11-08] MEDS: Furosemide 40 MG/4 ML VIAL IVPUSH SCH ×2 (06:51→07:06)
[2020-11-08] MEDS: Enoxaparin 40 MG/0.4 ML Syringe SUBCUT SCH (08:20)
[2020-11-08] MEDS: Loratadine 10 MG Tab PO SCH (08:22)
[2020-11-08] MEDS: Famotidine 10 MG Tab PO SCH ×2 (08:22→21:13)
[2020-11-08] MEDS: Metoprolol Succinate 50 MG Tab.ER PO SCH (08:23)
[2020-11-08] MEDS: Potassium Chloride 20 MEQ Tab.ER PO SCH (08:23)
[2020-11-08] MEDS: Spironolactone 100 MG Tab PO SCH (08:23)
[2020-11-08] MEDS: amLODIPine 5 MG Tab PO SCH (08:24)
[2020-11-08] MEDS: traMADol 50 MG Tab PO PRN ×2 (08:24→16:59)
[2020-11-08] MEDS: Fluticasone Propionate Nasal Spray 16 GM Bottle NAS SCH ×2 (08:27→21:13)
--- NOTE | 2020-11-08 09:57 | PCM.PN ---
- General Info Date of Service: 11/08/20 Admission Dx/Problem (Free Text): Admission Diagnosis/Problem Admission Diagnosis/Problem Cellulitis Subjective Update: Patient states that she is feeling well. Appetite is adequate. Denies any fever or chills. - Patient Data Vitals - Most Recent: Last Vital Signs Temp 98.1 F 11/08/20 07:28 Pulse 77 11/08/20 08:23 Resp 16 11/08/20 07:28 BP 152/112 H 11/08/20 08:24 Pulse Ox 98 11/08/20 07:28 Weight - Most Recent: 301 lb 4.8 oz I&O - Last 24 Hours: Intake & Output 11/07/20 11/08/20 11/08/20 22:59 06:59 14:59 Intake Total 1380 1000 Output Total 4500 1700 Balance -3120 -700 Lab Results Last 24 Hours: Laboratory Results - last 24 hr 11/08/20 11/08/20 Range/Units 08:09 08:09 WBC 8.04 (3.98-10.04) K/mm3 RBC 4.16 (3.98-5.22) M/mm3 Hgb 11.5 D (11.2-15.7) gm/dl Hct 38.8 (34.1-44.9) % MCV 93.3 (79.4-94.8) fl MCH 27.6 (25.6-32.2) pg MCHC 29.6 L (32.2-35.5) g/dl RDW Std Deviation 47.3 H (36.4-46.3) fL Plt Count 417 H D (182-369) K/mm3 MPV 9.5 (9.4-12.3) fl Neut % (Auto) 67.2 (34.0-71.1) % Lymph % (Auto) 20.8 (19.3-51.7) % [place] % (Auto) 5.6 (4.7-12.5) % Eos % (Auto) 5.6 (0.7-5.8) Baso % (Auto) 0.6 (0.1-1.2) % Neut # (Auto) 5.40 (1.56-6.13) K/mm3 Lymph # (Auto) 1.67 (1.18-3.74) K/mm3 [place] # (Auto) 0.45 H (0.24-0.36) K/mm3 Eos # (Auto) 0.45 H (0.04-0.36) K/mm3 Baso # (Auto) 0.05 (0.01-0.08) K/mm3 Sodium 142 (136-145) mEq/L Potassium 4.2 (3.5-5.1) mEq/L Chloride 102 (98-107) mEq/L Carbon Dioxide 29 (21-32) mEq/L Anion Gap 15.2 H (5-15) BUN 31 H (7-18) mg/dL Creatinine 1.5 H (0.55-1.02) mg/dL Est Cr Clr Drug Dosing 35.73 mL/min Estimated GFR (MDRD) 36 (>60) mL/min BUN/Creatinine Ratio 20.7 H (14-18) Glucose 100 (74-106) mg/dL Calcium 9.6 (8.5-10.1) mg/dL Phosphorus 3.5 (2.6-4.7) mg/dL Magnesium 2.2 (1.8-2.4) mg/dl Total Bilirubin 0.3 (0.2-1.0) mg/dL AST 32 (15-37) U/L ALT 90 H (14-59) U/L Alkaline Phosphatase 204 H (46-116) U/L C-Reactive Protein 5.8 H* (<1.0) mg/dL Total Protein 8.3 H (6.4-8.2) g/dl Albumin 3.0 L (3.4-5.0) g/dl Globulin 5.3 gm/dL Albumin/Globulin Ratio 0.6 L (1-2) [place] Results Last 24 Hours: Microbiology 11/06/20 16:50 Aerobic Blood Culture - Preliminary Blood - Venous - Lab Draw NO GROWTH AFTER 1 DAY Anaerobic Blood Culture - Preliminary NO GROWTH AFTER 1 DAY 11/06/20 17:00 Aerobic Blood Culture - Preliminary Blood - Venous NO GROWTH AFTER 1 DAY Anaerobic Blood Culture - Preliminary NO GROWTH AFTER 1 DAY Med Orders - Current: Current Medications Acetaminophen (Tylenol) 650 mg PO Q4H PRN PRN Reason: Pain (Mild 1-3)/fever Last Admin: 11/08/20 02:41 Dose: 650 mg Documented by: Amlodipine Besylate (Norvasc) 5 mg PO DAILY [facility] Chlorthalidone (Chlorthalidone) 25 mg PO DAILY [facility] Enoxaparin Sodium (Lovenox) 40 mg SUBCUT DAILY [facility] Last Admin: 11/08/20 08:20 Dose: 40 mg Documented by: Famotidine (Pepcid) 10 mg PO BID [facility] Last Admin: 11/08/20 08:22 Dose: 10 mg Documented by: Fluticasone Propionate (Flonase) 0 gm [place] BID [facility] Last Admin: 11/08/20 08:27 Dose: Not Given Documented by: Vancomycin HCl 1 gm/Vancomycin HCl 500 mg/ Sodium Chloride 500 mls @ 333.333 mls/hr IV Q24H [facility] Last Admin: 11/07/20 17:35 Dose: 333.333 mls/hr Documented by: Loratadine (Claritin) 10 mg PO DAILY [facility] Last Admin: 11/08/20 08:22 Dose: 10 mg Documented by: Metoprolol Succinate (Toprol Xl) 75 mg PO DAILY [facility] Ondansetron HCl (Zofran) 4 mg IV Q4H PRN PRN Reason: Nausea/Vomiting Pantoprazole Sodium (Protonix) 40 mg PO ACBREAKFAST [facility] Last Admin: 11/08/20 06:51 Dose: 40 mg Documented by: Potassium Chloride (Klor-Con M20) 20 meq PO DAILY [facility] Last Admin: 11/08/20 08:23 Dose: 20 meq Documented by: Sodium Chloride (Saline Flush) 10 ml FLUSH ASDIRECTED PRN PRN Reason: Keep Vein Open Last Admin: 11/06/20 16:17 Dose: 10 ml Documented by: Spironolactone (Aldactone) 100 mg PO DAILY [facility] Last Admin: 11/08/20 08:23 Dose: 100 mg Documented by: Tramadol HCl (Ultram) 50 mg PO TID PRN PRN Reason: Pain Last Admin: 11/08/20 08:24 Dose: 50 mg Documented by: Vancomycin HCl (Pharmacy To Dose - Vancomycin) 1 dose .XX ASDIRECTED [facility] Discontinued Medications Amlodipine Besylate (Norvasc) 10 mg PO DAILY [facility] Last Admin: 11/08/20 08:24 Dose: 10 mg Documented by: Furosemide (Lasix) 40 mg IVPUSH NOW ONE Stop: 11/06/20 21:19 Last Admin: 01/04/21 21:40 Dose: 40 mg Documented by: Furosemide (Lasix) 40 mg IVPUSH BIDDIURETIC MAGALI Last Admin: 11/08/20 07:06 Dose: 40 mg Documented by: Furosemide (Lasix) 40 mg PO DAILY MAGAL[facility] Vancomycin HCl 2 gm/ Sodium (Chloride) 250 mls @ 250 mls/hr IV ONETIME ONE Stop: 11/06/20 17:55 Last Admin: 11/06/20 17:08 Dose: Not Given Documented by: Vancomycin HCl 1 gm/ Sodium (Chloride) 250 mls @ 250 mls/hr IV Q1H [facility] Stop: 11/06/20 19:14 Last Admin: 11/06/20 18:10 Dose: 250 mls/hr Documented by: Metoprolol Succinate (Toprol Xl) 50 mg PO DAILY [facility] Last Admin: 11/08/20 08:23 Dose: 50 mg Documented by: Metoprolol Succinate (Toprol Xl) 50 mg PO DAILY MAGALI - Exam Quality Assessment: No: Supplemental Oxygen General: Alert, Oriented HEENT: Pupils Equal, Mucous Membr. Moist/[place] Neck: Supple Lungs: Clear to Auscultation, Normal Respiratory Effort Cardiovascular: Regular Rate, Regular Rhythm GI/Abdominal Exam: Normal Bowel Sounds, Soft, Non-Tender, No Distention Extremities: Pedal Edema (Greatly improved. She has severely obese legs making exam difficult.), Redness (Minimal improvement in erythema but significant improvement in tenderness. Continues with vesicles. She does have some scaly yellow crusting of the left lower extremity which will need to be evaluated by physical therapy.) Skin: Warm, Other (As above) Sepsis Event Note - Evaluation Sepsis Screening Result: No Definite Risk - Focused Exam Vital Signs: Vital Signs Temp Pulse Resp BP Pulse Ox 11/08/20 08:24 152/112 H 11/08/20 08:23 77 152/112 H 11/08/20 07:28 98.1 F 77 16 152/112 H 98 11/08/20 05:37 98.2 F 58 L 16 141/85 H 98 11/07/20 23:00 98.2 F 64 18 130/91 H 99 - Problem List & Annotations (1) Edema due to hypoalbuminemia SNOMED Code(s): 572390943, 936121200 Code(s): E88.09 - OTH DISORDERS OF PLASMA-PROTEIN METABOLISM, NEC Status: Acute Current Visit: Yes (2) CHF (congestive heart failure) SNOMED Code(s): 98023913 Code(s): I50.9 - HEART FAILURE, UNSPECIFIED Status: Acute Priority: High Current Visit: Yes Qualifiers: Heart failure type: right-sided Heart failure chronicity: unspecified Qualified Code(s): I50.810 - Right heart failure, unspecified (3) Cellulitis SNOMED Code(s): 506373473 Code(s): L03.90 - CELLULITIS, UNSPECIFIED Status: Acute Current Visit: Yes Qualifiers: Site of cellulitis: extremity Site of cellulitis of extremity: lower extremity Laterality: unspecified laterality Qualified Code(s): L03.119 - Cellulitis of unspecified part of limb (4) Venous stasis dermatitis SNOMED Code(s): 26455553 Code(s): I87.2 - VENOUS INSUFFICIENCY (CHRONIC) (PERIPHERAL) Status: Acute Current Visit: Yes - Problem List Review Problem List Initiated/Reviewed/Updated: Yes - My Orders Last 24 Hours: My Active Orders 11/07/20 09:00 Enoxaparin [Lovenox] 40 mg SUBCUT DAILY Famotidine [Pepcid] 10 mg PO BID Fluticasone Propionate [Flonase] 0 gm [place] BID Loratadine [Claritin] 10 mg PO DAILY Pantoprazole [ProTONIX] 40 mg PO ACBREAKFAST Potassium Chloride [Klor-Con M20] 20 meq PO DAILY Spironolactone [Aldactone] 100 mg PO DAILY 11/07/20 18:00 Vancomycin 1 gm Vancomycin 500 mg Sodium Chloride 0.9% [Normal Saline] 500 ml IV Q24H 11/07/20 18:49 Consult to Physical Therapy [PT Evaluation and Treatment] [CONS] Routine 11/07/20 18:50 Consult to Occupational Therapy [OT Evaluation and Treatment] [CONS] Routine 11/08/20 09:32 PT Evaluation and Treatment [CONS] Routine 11/09/20 09:00 Chlorthalidone 25 mg PO DAILY Metoprolol Succinate [Toprol XL] 50 mg PO DAILY Metoprolol Succinate [Toprol XL] 75 mg PO DAILY amLODIPine [Norvasc] 5 mg PO DAILY - Plan Plan:: Assessment 55-year-old female with history of chronic lower extremity venous stasis and cellulitis presents to the emergency department from [facility] with worsening lower extremity cellulitis. * Patient was admitted and treated here at the end of June for similar symptoms. * WBC 11.0 with a few toxic granules and absolute neutrophil count of 9.31 * Lactic acid is normal at 1.0 * C-reactive protein 15.5 * Procalcitonin pending * Blood cultures done in the emergency department * Vancomycin started in the emergency department Uncontrolled hypertension Elevated proBNP, possible CHF * Blood pressure on presentation was 163/102 * On Toprol-XL, amlodipine, spironolactone, and Lasix as outpatient * Amlodipine can worsen edema * No MARCE or ARB * No echocardiogram available Chronic stage III renal insufficiency * Estimated GFR 42 * Creatinine 1.3 * Likely some degree of acute on chronic renal insufficiency * History of hypertension Transaminitis * AST and ALT are elevated at 80 and 123 respectively. This appears to be new. * Alkaline phosphatase is stable at 210 from previous admissions. * Total bilirubin normal at 0.3 * Albumin significantly decreased at 2.7, unknown cause Hypoalbuminemiachronic * Unknown cause of low albumin. * Hypoalbuminemia appears to be chronic with her last albumin available between 2.4 and 3.0 on admission in June. * No current UA to see if there is any albumin loss Plan * Admit to medical floor * Continue vancomycin * Increase Lasix to 40 mg IV twice daily * Continue spironolactone at 100 mg daily * Strict I's and O's and daily weights * Follow-up morning labs * Follow blood cultures and liver function * Urine for protein to rule out proteinuria * Dietary consult * CODE STATUS: Full code * VTE prophylaxis with Lovenox 11/07/2020 55-year-old female with history of lower extremity edema and MRSA cellulitis with no significant change overnight. White count has improved to 9.1 overnight and she continues on Covid. MRSA screening was positive. Transaminitis has improved with AST of 48 and ALT of 100. Alkaline phosphatase has also decreased to 183. This is likely reactive secondary to the infection. CRP is down to 10.5. Generally patient is improving with the weight loss and improvement in her overall condition. Albumin continues to be low at 2.5, but urine protein was negative. Continue vancomycin. Continue IV Lasix and consider switching to oral tomorrow. Echocardiogram done this mornin. Mild concentric left ventricular hypertrophy. 2. Normal pattern of LV diastolic filling. 3. Grossly normal left ventricular systolic function with estimated ejection fraction of 60%. Regional wall motion abnormalities cannot be excluded. 4. Mild mitral valve regurgitation. 5. Trace tricuspid valve regurgitation. 6. The right ventricular systolic pressure is normal at 34.4 mmHg. 7. Technically limited study. Lower extremity edema does not appear to be secondary to significant heart failure or proteinuria. 11/08/2020 Patient continues to improve. She has had a total of 18 pounds of weight loss since admission and her renal function is demonstrating the diuresis. Creatinine is now up to 1.5 and BUN of 31 making her BUN to creatinine ratio just over 20. Estimated GFR is down to 36. Fortunately her white count has dropped to 8 and there is no longer a left shift. Platelet count is elevated at 417, but she has had significant hemoconcentration with a hemoglobin of 11.5. Blood pressure still continues to be poorly controlled. She is on Norvasc 10 mg which is known to cause peripheral edema which concerns me for worsening of her lower extremity edema. Home records show that she is on Lasix 20 mg p.o. and spironolactone 100 mg p.o. in the mornings. She may get better blood pressure benefit by using a thiazide diuretic like chlorthalidone. Also, her echocardiog nancy shows normal ejection fraction and right ventricular systolic pressure was normal. There appears to be no significant right-sided heart failure with also normal left ventricular diastolic filling. She does have some mild concentric left ventricular hypertrophy. Patient would likely benefit from both a beta- stephany, which she is on, and an MARCE inhibitor or ARB. I do not want to place her on an MARCE or ARB at this time secondary to her intravascular hypovolemia. She may benefit from this as an outpatient. Patient will be started on chlorthalidone and we will stop her Lasix. Decrease her Norvasc from 10 mg to 5 mg secondary to lower extremity edema. Increase metoprolol succinate from 50mg to 75 mg and follow her heart rate closely. Patient is also developing significant and even severe thrombophlebitis secondary to vancomycin. We will need to discontinue the vancomycin and switch her to doxycycline. Doxycycline will be started 100 mg IV for the next 24 hours and then switch to oral doxycycline assuming she has good response. Physical therapy will be consulted for the wounds on her left lower extremity and for ambulation. Transaminitis is improving with her AST normal at 32 and ALT down to 90. Albumin has improved up to 3.0 which is significant improvement. This may be partly due to hemoconcentration. CBC, CMP, C-reactive protein in the morning. Consider discharge home in 1 to 2 days.
[2020-11-08] MEDS ORDERED: Doxycycline 100 MG in Sodium Chloride 0.9% 100 ML IV SCH (21:00)
[2020-11-08] MEDS: Doxycycline 100 MG Cap PO SCH (21:13)
[2020-11-09] MEDS: Acetaminophen 325 MG Tab PO PRN ×2 (05:04→12:49)
[2020-11-09] MEDS: Pantoprazole 40 MG Tab.CR PO SCH (05:05)
[2020-11-09] MEDS ORDERED: Aspirin 325 MG Tab.EC PO SCH (09:00)
[2020-11-09] MEDS ORDERED: Metoprolol Succinate 50 MG Tab.ER PO SCH ×2 (09:00)
[2020-11-09] MEDS ORDERED: amLODIPine 5 MG Tab PO SCH (09:00)
[2020-11-09] MEDS ORDERED: Chlorthalidone 25 MG Tab PO SCH (09:00)
[2020-11-09] MEDS ORDERED: Furosemide 40 MG Tab PO SCH (09:00)
[2020-11-09] MEDS: Potassium Chloride 20 MEQ Tab.ER PO SCH (09:27)
[2020-11-09] MEDS: Doxycycline 100 MG Cap PO SCH (09:29)
[2020-11-09] MEDS: Spironolactone 100 MG Tab PO SCH (09:29)
[2020-11-09] MEDS: Famotidine 10 MG Tab PO SCH (09:29)
[2020-11-09] MEDS: Enoxaparin 40 MG/0.4 ML Syringe SUBCUT SCH (09:30)
[2020-11-09] MEDS: Loratadine 10 MG Tab PO SCH (09:30)
[2020-11-09] MEDS: traMADol 50 MG Tab PO PRN (09:31)
[2020-11-09] MEDS: Fluticasone Propionate Nasal Spray 16 GM Bottle NAS SCH (12:15)
--- NOTE | 2020-11-09 12:39 | PCM.DCSUM1 ---
Discharge Summary - Hospital Course HPI Initial Comments: Patient presents to the emergency department with bilateral lower extremity edema cellulitis worse on the left. She was admitted at the end of June with left-sided cellulitis and treated with doxycycline. Patient was seen again today at [facility] for Unna boots secondary to her venous stasis and they noted that she had increased erythema up to her thigh. Recommendation was to send patient to the hospital for possible admission. Patient denies any fever, chills, or night sweats. She denies any significant pain, shortness of breath, or other respiratory symptoms. She has a history of hypertension and venous stasis dermatitis/chronic cellulitis. Assessment/Plan Comment:: Assessment 55-year-old female with history of chronic lower extremity venous stasis and cellulitis presents to the emergency department from [facility] with worsening lower extremity cellulitis. * Patient was admitted and treated here at the end of June for similar symptoms. * WBC 11.0 with a few toxic granules and absolute neutrophil count of 9.31 * Lactic acid is normal at 1.0 * C-reactive protein 15.5 * Procalcitonin pending * Blood cultures done in the emergency department * Vancomycin started in the emergency department Uncontrolled hypertension Elevated proBNP, possible CHF * Blood pressure on presentation was 163/102 * On Toprol-XL, amlodipine, spironolactone, and Lasix as outpatient * Amlodipine can worsen edema * No MARCE or ARB * No echocardiogram available Chronic stage III renal insufficiency * Estimated GFR 42 * Creatinine 1.3 * Likely some degree of acute on chronic renal insufficiency * History of hypertension Transaminitis * AST and ALT are elevated at 80 and 123 respectively. This appears to be new. * Alkaline phosphatase is stable at 210 from previous admissions. * Total bilirubin normal at 0.3 * Albumin significantly decreased at 2.7, unknown cause Hypoalbuminemiachronic * Unknown cause of low albumin. * Hypoalbuminemia appears to be chronic with her last albumin available between 2.4 and 3.0 on admission in June. * No current UA to see if there is any albumin loss Plan * Admit to medical floor * Continue vancomycin * Increase Lasix to 40 mg IV twice daily * Continue spironolactone at 100 mg daily * Strict I's and O's and daily weights * Follow-up morning labs * Follow blood cultures and liver function * Urine for protein to rule out proteinuria * Dietary consult * CODE STATUS: Full code * VTE prophylaxis with Lovenox Diagnosis: Stroke: No - Discharge Data Discharge Date: 11/09/20 Discharge Disposition: Home, Self-Care 01 Condition: Good - Referral to Home Health Primary Care Physician: Francy Kam MD - Discharge Diagnosis/Problem(s) (1) Edema due to hypoalbuminemia SNOMED Code(s): 194637064, 256068843 ICD Code: E88.09 - OTH DISORDERS OF PLASMA-PROTEIN METABOLISM, NEC Status: Acute (2) CHF (congestive heart failure) SNOMED Code(s): 67579120 ICD Code: I50.9 - HEART FAILURE, UNSPECIFIED Status: Acute Priority: High Qualifiers: Heart failure type: right-sided Heart failure chronicity: unspecified Qualified Code(s): I50.810 - Right heart failure, unspecified (3) Cellulitis SNOMED Code(s): 109574848 ICD Code: L03.90 - CELLULITIS, UNSPECIFIED Status: Acute Qualifiers: Site of cellulitis: extremity Site of cellulitis of extremity: lower e xtremity Laterality: unspecified laterality Qualified Code(s): L03.119 - Cellulitis of unspecified part of limb (4) Venous stasis dermatitis SNOMED Code(s): 77337916 ICD Code: I87.2 - VENOUS INSUFFICIENCY (CHRONIC) (PERIPHERAL) Status: Acute - Patient Summary/Data Consults: Consultations 11/07/20 18:49 Consult to Physical Therapy [PT Evaluation and Treatment] [CONS] Routine 11/07/20 18:50 Consult to Occupational Therapy [OT Evaluation and Treatment] [CONS] Routine 11/08/20 09:32 PT Evaluation and Treatment [CONS] Routine Hospital Course: 11/07/2020 55-year-old female with history of lower extremity edema and MRSA cellulitis with no significant change overnight. White count has improved to 9.1 overnight and she continues on Covid. MRSA screening was positive. Transaminitis has improved with AST of 48 and ALT of 100. Alkaline phosphatase has also decreased to 183. This is likely reactive secondary to the infection. CRP is down to 10.5. Generally patient is improving with the weight loss and improvement in her overall condition. Albumin continues to be low at 2.5, but urine protein was negative. Continue vancomycin. Continue IV Lasix and consider switching to oral tomorrow. Echocardiogram done this mornin. Mild concentric left ventricular hypertrophy. 2. Normal pattern of LV diastolic filling. 3. Grossly normal left ventricular systolic function with estimated ejection fraction of 60%. Regional wall motion abnormalities cannot be excluded. 4. Mild mitral valve regurgitation. 5. Trace tricuspid valve regurgitation. 6. The right ventricular systolic pressure is normal at 34.4 mmHg. 7. Technically limited study. Lower extremity edema does not appear to be secondary to significant heart failure or proteinuria. 11/08/2020 Patient continues to improve. She has had a total of 18 pounds of weight loss since admission and her renal function is demonstrating the diuresis. Crea tinine is now up to 1.5 and BUN of 31 making her BUN to creatinine ratio just over 20. Estimated GFR is down to 36. Fortunately her white count has dropped to 8 and there is no longer a left shift. Platelet count is elevated at 417, but she has had significant hemoconcentration with a hemoglobin of 11.5. Blood pressure still continues to be poorly controlled. She is on Norvasc 10 mg which is known to cause peripheral edema which concerns me for worsening of her lower extremity edema. Home records show that she is on Lasix 20 mg p.o. and spironolactone 100 mg p.o. in the mornings. She may get better blood pressure benefit by using a thiazide diuretic like chlorthalidone. Also, her echocardiogram shows normal ejection fraction and right ventricular systolic pressure was normal. There appears to be no significant right-sided heart failure with also normal left ventricular diastolic filling. She does have some mild concentric left ventricular hypertrophy. Patient would likely benefit from both a beta-stephany, which she is on, and an MARCE inhibitor or ARB. I do not want to place her on an MARCE or ARB at this time secondary to her intravascular hypovolemia. She may benefit from this as an outpatient. Patient will be started on chlorthalidone and we will stop her Lasix. Decrease her Norvasc from 10 mg to 5 mg secondary to lower extremity edema. Increase metoprolol succinate from 50mg to 75 mg and follow her heart rate closely. Patient is also developing significant and even severe thrombophlebitis secondary to vancomycin. We will need to discontinue the vancomycin and switch her to doxycycline. Doxycycline will be started 100 mg IV for the next 24 hours and then switch to oral doxycycline assuming she has good response. Physical therapy will be consulted for the wounds on her left lower extremity and for ambulation. Transaminitis is improving with her AST normal at 32 and ALT down to 90. Albumin has improved up to 3.0 which is significant improvement. This may be partly due to hemoconcentration. CBC, CMP, C-reactive protein in the morning. Consider discharge home in 1 to 2 days. 11/09/2020 Patient continues to improve and lab work has also improved. Patient is afebrile, with normal white count, and blood pressure is improved. She will be discharged on doxycycline for her cellulitis, aspirin for her superficial thrombophlebitis, and the changes to her blood pressure medication. Discharge hypertension medication: New chlorthalidone 25 mg p.o. daily. Metoprolol succinate increased to 75 mg daily. Norvasc decreased to 5 mg daily. Lasix was stopped secondary to the addition of chlorthalidone. Also her echocardiogram does not show any significant heart failure and lower extremity edema is more likely due to stasis in which she would benefit more from compression stockings then loop diuretic. Thiazide diuretic would have more benefit in regards to her blood pressure. Continue spironolactone 100 mg daily. She will need to follow-up with her primary care provider early next week. - Patient Instructions Diet: Heart Healthy Diet Activity: As Tolerated Driving: Do Not Drive Showering/Bathing: May Shower Notify Provider of: Fever, Nausea and/or Vomiting Other/Special Instructions: You have had changes to your blood pressure medications, so you will need to follow-up early next week with your primary care provider for labs and blood pressure recheck. - Discharge Plan *PRESCRIPTION DRUG MONITORING PROGRAM REVIEWED*: No *COPY OF PRESCRIPTION DRUG MONITORING REPORT IN PATIENT LEISA: No Prescriptions/Med Rec: Chlorthalidone 25 mg PO DAILY #30 tablet Aspirin [Ecotrin EC] 325 mg PO DAILY #30 tab.ec amLODIPine [Norvasc] 5 mg PO DAILY #30 tablet Metoprolol Succinate [Toprol XL 50mg] 75 mg PO DAILY #45 tab.er Doxycycline [Vibramycin] 100 mg PO BID #14 cap Home Medications: Home Meds Acetaminophen [Tylenol] 325 mg PO DAILY PRN 03/26/19 [History] Pantoprazole [ProTONIX] 40 mg PO DAILY 03/26/19 [History] Potassium Chloride 20 meq PO DAILY 03/26/19 [History] Spironolactone [Aldactone] 100 mg PO DAILY 03/26/19 [History] traMADol HCl [Tramadol HCl] 50 mg PO TID PRN 03/26/19 [History] Clotrimazole [Clotrimazole 1%] 1 appful TOP DAILY PRN 11/06/20 [History] Famotidine 10 mg PO BID 11/06/20 [History] Fluticasone Propionate [Flonase] 1 spray [place] BID 11/06/20 [History] Loratadine 10 mg PO DAILY 11/06/20 [History] Nystatin 1 each TOP BID PRN 11/06/20 [History] Aspirin [Ecotrin EC] 325 mg PO DAILY #30 tab.ec 11/09/20 [Rx] Chlorthalidone 25 mg PO DAILY #30 tablet 11/09/20 [Rx] Doxycycline [Vibramycin] 100 mg PO BID #14 cap 11/09/20 [Rx] Metoprolol Succinate [Toprol XL 50mg] 75 mg PO DAILY #45 tab.er 11/09/20 [Rx] amLODIPine [Norvasc] 5 mg PO DAILY #30 tablet 11/09/20 [Rx] Oxygen Therapy Mode: Room Air Patient Handouts: Venous Ulcer, Cellulitis, Adult, Heart Failure, Self Care, MRSA Infection, Self-Care, Adult, Sepsis, Diagnosis, Adult, Chronic Venous Insufficiency, Stasis Dermatitis, MRSA Infection, Diagnosis, Adult, Living With Heart Failure Referrals: Francy Kam MD [Primary Care Provider] - 11/21/20 2:30 pm (Hospital follow-up appointment.) - Discharge Summary/Plan Comment DC Time >30 min.: Yes - General Info Date of Service: 11/09/20 Admission Dx/Problem (Free Text: Admission Diagnosis/Problem Admission Diagnosis/Problem Cellulitis Subjective Update: Patient states she is feeling much better. She is able to ambulate back to baseline. She has had 2 bowel movements. - Review of Systems General: Reports: No Symptoms HEENT: Reports: No Symptoms Pulmonary: Reports: No Symptoms Cardiovascular: Reports: Edema Neurological: Reports: No Symptoms Psychiatric: Reports: No Symptoms - Patient Data Vitals - Most Recent: Last Vital Signs Temp 98.2 F 11/09/20 11:31 Pulse 60 11/09/20 11:31 Resp 18 11/09/20 11:31 BP 141/93 H 11/09/20 11:31 Pulse Ox 100 11/09/20 11:31 Weight - Most Recent: 300 lb 8 oz I&O - Last 24 hours: Intake & Output 11/08/20 11/09/20 11/09/20 22:59 06:59 14:59 Intake Total 1350 500 120 Output Total 2100 750 Balance -750 -250 120 Lab Results - Last 24 hrs: Laboratory Results - last 24 hr 11/09/20 11/09/20 Range/Units 04:40 04:40 WBC 6.89 (3.98-10.04) K/mm3 RBC 3.58 L (3.98-5.22) M/mm3 Hgb 9.8 L D (11.2-15.7) gm/dl Hct 33.4 L (34.1-44.9) % MCV 93.3 (79.4-94.8) fl MCH 27.4 (25.6-32.2) pg MCHC 29.3 L (32.2-35.5) g/dl RDW Std Deviation 46.9 H (36.4-46.3) fL Plt Count 340 D (182-369) K/mm3 MPV 9.9 (9.4-12.3) fl Neut % (Auto) 61.2 (34.0-71.1) % Lymph % (Auto) 23.8 (19.3-51.7) % [place] % (Auto) 8.9 (4.7-12.5) % Eos % (Auto) 5.1 (0.7-5.8) Baso % (Auto) 0.4 (0.1-1.2) % Neut # (Auto) 4.22 (1.56-6.13) K/mm3 Lymph # (Auto) 1.64 (1.18-3.74) K/mm3 [place] # (Auto) 0.61 H (0.24-0.36) K/mm3 Eos # (Auto) 0.35 (0.04-0.36) K/mm3 Baso # (Auto) 0.03 (0.01-0.08) K/mm3 Manual Slide Review Abnormal smear Sodium 142 (136-145) mEq/L Potassium 4.0 (3.5-5.1) mEq/L Chloride 104 (98-107) mEq/L Carbon Dioxide 27 (21-32) mEq/L Anion Gap 15.0 (5-15) BUN 34 H (7-18) mg/dL Creatinine 1.4 H (0.55-1.02) mg/dL Est Cr Clr Drug Dosing 38.28 mL/min Estimated GFR (MDRD) 39 (>60) mL/min BUN/Creatinine Ratio 24.3 H (14-18) Glucose 87 (74-106) mg/dL Calcium 8.7 (8.5-10.1) mg/dL Magnesium 2.1 (1.8-2.4) mg/dl Total Bilirubin 0.2 (0.2-1.0) mg/dL AST 22 (15-37) U/L ALT 60 H (14-59) U/L Alkaline Phosphatase 157 H (46-116) U/L Total Protein 6.8 (6.4-8.2) g/dl Albumin 2.5 L (3.4-5.0) g/dl Globulin 4.3 gm/dL Albumin/Globulin Ratio 0.6 L (1-2) RACHELL Results - Last 24 hrs: Microbiology 11/06/20 16:50 Aerobic Blood Culture - Preliminary Blood - Venous - Lab Draw NO GROWTH AFTER 2 DAYS Anaerobic Blood Culture - Preliminary NO GROWTH AFTER 2 DAYS 11/06/20 17:00 Aerobic Blood Culture - Preliminary Blood - Venous NO GROWTH AFTER 2 DAYS Anaerobic Blood Culture - Preliminary NO GROWTH AFTER 2 DAYS Med Orders - Current: Current Medications Acetaminophen (Tylenol) 650 mg PO Q4H PRN PRN Reason: Pain (Mild 1-3)/fever Last Admin: 11/09/20 05:04 Dose: 650 mg Documented by: Amlodipine Besylate (Norvasc) 5 mg PO DAILY [facility] Last Admin: 11/09/20 09:31 Dose: 5 mg Documented by: Aspirin (Ecotrin) 325 mg PO DAILY [facility] Last Admin: 11/09/20 09:29 Dose: 325 mg Documented by: Chlorthalidone (Chlorthalidone) 25 mg PO DAILY [facility] Last Admin: 11/09/20 09:29 Dose: 25 mg Documented by: Doxycycline Hyclate (Vibramycin) 100 mg PO BID [facility] Last Admin: 11/09/20 09:29 Dose: 100 mg Documented by: Enoxaparin Sodium (Lovenox) 40 mg SUBCUT DAILY [facility] Last Admin: 11/09/20 09:30 Dose: 40 mg Documented by: Famotidine (Pepcid) 10 mg PO BID [facility] Last Admin: 11/09/20 09:29 Dose: 10 mg Documented by: Fluticasone Propionate (Flonase) 0 gm [place] BID [facility] Last Admin: 11/09/20 12:15 Dose: Not Given Documented by: Loratadine (Claritin) 10 mg PO DAILY [facility] Last Admin: 11/09/20 09:30 Dose: 10 mg Documented by: Metoprolol Succinate (Toprol Xl) 75 mg PO DAILY [facility] Last Admin: 11/09/20 09:26 Dose: 75 mg Documented by: Ondansetron HCl (Zofran) 4 mg IV Q4H PRN PRN Reason: Nausea/Vomiting Pantoprazole Sodium (Protonix) 40 mg PO ACBREAKFAST [facility] Last Admin: 11/09/20 05:05 Dose: 40 mg Documented by: Potassium Chloride (Klor-Con M20) 20 meq PO DAILY [facility] Last Admin: 11/09/20 09:27 Dose: 20 meq Documented by: Sodium Chloride (Saline Flush) 10 ml FLUSH ASDIRECTED PRN PRN Reason: Keep Vein Open Last Admin: 11/06/20 16:17 Dose: 10 ml Documented by: Spironolactone (Aldactone) 100 mg PO DAILY [facility] Last Admin: 11/09/20 09:29 Dose: 100 mg Documented by: Tramadol HCl (Ultram) 50 mg PO TID PRN PRN Reason: Pain Last Admin: 11/09/20 09:31 Dose: 50 mg Documented by: Discontinued Medications Amlodipine Besylate (Norvasc) 10 mg PO DAILY [facility] Last Admin: 11/08/20 08:24 Dose: 10 mg Documented by: Furosemide (Lasix) 40 mg IVPUSH NOW ONE Stop: 11/06/20 21:19 Last Admin: 11/06/20 21:40 Dose: 40 mg Documented by: Furosemide (Lasix) 40 mg IVPUSH BIDDIURETIC [facility] Last Admin: 11/08/20 07:06 Dose: 40 mg Documented by: Furosemide (Lasix) 40 mg PO DAILY [facility] Vancomycin HCl 2 gm/ Sodium (Chloride) 250 mls @ 250 mls/hr IV ONETIME ONE Stop: 11/06/20 17:55 Last Admin: 11/06/20 17:08 Dose: Not Given Documented by: Vancomycin HCl 1 gm/ Sodium (Chloride) 250 mls @ 250 mls/hr IV Q1H [facility] Stop: 11/06/20 19:14 Last Admin: 11/06/20 18:10 Dose: 250 mls/hr Documented by: Vancomycin HCl 1 gm/Vancomycin HCl 500 mg/ Sodium Chloride 500 mls @ 333.333 mls/hr IV Q24H [facility] Last Admin: 11/07/20 17:35 Dose: 333.333 mls/hr Documented by: Doxycycline Hyclate 100 mg/ (Sodium Chloride) 100 mls @ 100 mls/hr IV Q12HR [facility] Metoprolol Succinate (Toprol Xl) 50 mg PO DAILY [facility] Last Admin: 11/08/20 08:23 Dose: 50 mg Documented by: Metoprolol Succinate (Toprol Xl) 50 mg PO DAILY [facility] Vancomycin HCl (Pharmacy To Dose - Vancomycin) 1 dose .XX ASDIRECTED [facility] - Exam Quality Assessment: Denies: Supplemental Oxygen General: Reports: Alert, Oriented HEENT: Reports: Pupils Equal, Mucous Membr. Moist/[place] Neck: Reports: Supple Lungs: Reports: Clear to Auscultation, Normal Respiratory Effort Cardiovascular: Reports: Regular Rate, Regular Rhythm GI/Abdominal Exam: Normal Bowel Sounds, Soft, Non-Tender, No Distention Extremities: Normal Inspection, Pedal Edema (2+, improved) Skin: Reports: Warm, Dry, Intact
== END 2020-11-09 13:25 | disposition home or self-care (01) | DRG 603 ==
LOC: JD.ED 15:27 → JD.MS 18:47
PROVIDERS: ADMIT Family Medicine; ATTEND Family Medicine
DX: L03.116 Cellulitis of left lower limb (principal); I13.0 Hypertensive heart and chronic kidney disease with heart failure and stage 1 through stage 4 chronic kidney disease, or unspecified chronic kidney disease; N17.9 Acute kidney failure, unspecified; I10 Essential (primary) hypertension; L03.115 Cellulitis of right lower limb; E88.09 Other disorders of plasma-protein metabolism, not elsewhere classified; I87.2 Venous insufficiency (chronic) (peripheral); Z85.118 Personal history of other malignant neoplasm of bronchus and lung; Z92.21 Personal history of antineoplastic chemotherapy; B95.62 Methicillin resistant Staphylococcus aureus infection as the cause of diseases classified elsewhere; Z20.822 Contact with and (suspected) exposure to COVID-19; I08.1 Rheumatic disorders of both mitral and tricuspid valves; I80.3 Phlebitis and thrombophlebitis of lower extremities, unspecified; I50.810 Right heart failure, unspecified; N18.9 Chronic kidney disease, unspecified; R74.01 Elevation of levels of liver transaminase levels; H54.7 Unspecified visual loss; K21.9 Gastro-esophageal reflux disease without esophagitis; M19.90 Unspecified osteoarthritis, unspecified site; Z88.0 Allergy status to penicillin; Z88.1 Allergy status to other antibiotic agents; Z88.8 Allergy status to other drugs, medicaments and biological substances; Z88.2 Allergy status to sulfonamides; Z79.899 Other long term (current) drug therapy; Z85.43 Personal history of malignant neoplasm of ovary
CPT/HCPCS: 36415; 80053; 83605; 85025; 86140; 87040 ×2; 96365; 96366; 99284; J3370 ×2; J7050 ×2; U0002; 29580-GP; 81003; 83735; 83880; 84100; 87641; 93306; 96375; 97110-GP; 97116-GP; 97162-GP; 97165-GO; 97530-GO; 97535-GO; A9270-GY; J1650; J1940; J7040

== ENCOUNTER 2021-02-08 12:38 | Emergency (ER) | payer MEDICARE, MEDICAID ==
[2021-02-08] MEDS ORDERED: Ketorolac 60 MG/2 ML SDV IM ONE (13:03)
--- NOTE | 2021-02-08 13:06 | EDM.PDOC ---
ED HPI GENERAL MEDICAL PROBLEM - General Chief Complaint: Back Pain or Injury Stated Complaint: LOW BACK/ LEG PAIN Time Seen by Provider: 02/08/21 12:41 Source of Information: Reports: Patient, RN Notes Reviewed History Limitations: Reports: No Limitations - History of Present Illness INITIAL COMMENTS - FREE TEXT/NARRATIVE: Patient is a 55-year-old female presenting to the emergency department with complaints of a low back pain down her left leg which has been occurring for several weeks. She reports that she was seen in the walk-in clinic about a week ago and prescribed Flexeril and tramadol. She feels that this may have helped initially but that the pain has been worsening over the last few days. She denies any recent falls or injuries to the area. She describes a burning pain in her left buttocks area that occasionally shoots down her leg. She uses a walker to ambulate as well as a wheelchair as needed. She currently resides at [facility] living [facility]. Denies any history of chronic back pain. 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 Denies any bowel or bladder dysfunction. back Pain Score (Numeric/FACES): 7 - Related Data Allergies Allergy/AdvReac Type Severity Reaction Status Date / Time castor oil Allergy Severe Anaphylactic Verified 02/08/21 12:51 Shock amoxicillin [From Augmentin] Allergy Intermediate Rash Verified 02/08/21 12:51 clavulanic acid Allergy Intermediate Rash Verified 02/08/21 12:51 [From Augmentin] levofloxacin [From Levaquin] Allergy Intermediate Rash Verified 02/08/21 12:51 losartan Allergy Intermediate Rash Verified 02/08/21 12:51 Penicillins Allergy Intermediate Rash Verified 02/08/21 12:51 sulfamethoxazole Allergy Intermediate Rash Verified 02/08/21 12:51 [From Bactrim] trimethoprim [From Bactrim] Allergy Intermediate Rash Verified 02/08/21 12:51 warfarin [From Coumadin] Allergy Intermediate Rash Verified 02/08/21 12:51 povidone-iodine Allergy Unknown Cannot Verified 02/08/21 12:51 Remember Home Meds: Home Meds Acetaminophen [Tylenol] 325 mg PO DAILY PRN 03/26/19 [History] Pantoprazole [ProTONIX] 40 mg PO DAILY 03/26/19 [History] Potassium Chloride 20 meq PO DAILY 03/26/19 [History] Spironolactone [Aldactone] 100 mg PO DAILY 03/26/19 [History] traMADol HCl [Tramadol HCl] 50 mg PO TID PRN 03/26/19 [History] Clotrimazole [Clotrimazole 1%] 1 appful TOP DAILY PRN 11/06/20 [History] Famotidine 10 mg PO BID 11/06/20 [History] Fluticasone Propionate [Flonase] 1 spray LINCOLN BID 11/06/20 [History] Loratadine 10 mg PO DAILY 11/06/20 [History] Aspirin [Ecotrin EC] 325 mg PO DAILY #30 tab.ec 11/09/20 [Rx] Chlorthalidone 25 mg PO DAILY #30 tablet 11/09/20 [Rx] Metoprolol Succinate [Toprol XL 50mg] 75 mg PO DAILY #45 tab.er 11/09/20 [Rx] amLODIPine [Norvasc] 5 mg PO DAILY #30 tablet 11/09/20 [Rx] Calcium Carbonate [Tums] 2 tab PO ASDIRECTED PRN 02/08/21 [History] Cyclobenzaprine [Flexeril] 10 mg PO TID PRN 02/08/21 [History] predniSONE [Prednisone] 20 mg PO ASDIRECTED #14 tablet 02/08/21 [Rx] Past Medical History HEENT History: Reports: Impaired Vision Cardiovascular History: Reports: None, Hypertension Other Cardiovascular History: Heart murmur when younger, states "every now and then doctors can hear it." Respiratory History: Reports: Other (See Below) Other Respiratory History: lung cancer-nodules benign Gastrointestinal History: Reports: GERD Genitourinary History: Reports: Other (See Below) Other Genitourinary History: ovarian cancer Musculoskeletal History: Reports: Arthritis Oncologic (Cancer) History: Reports: Lung, Ovarian Other Oncologic History: had chemo for ovarian cancer Dermatologic History: Reports: Cellulitis, Chronic Cellulitis, Venous Stasis Dermatitis Social & Family History - Family History HEENT: Reports: Macular Degeneration Other HEENT Family History: Both parents. Cardiac: Reports: Hypertension Other Cardiac Family History: HTN in both parents. Other Neurological Family History: Father- stroke Endocrine/Metabolic: Reports: Diabetes, type II Other Endocrine/Metabolic Family History: Both parents. - Tobacco Use Tobacco Use Status *Q: Never Tobacco User - Caffeine Use Caffeine Use: Reports: None Other Caffeine Use: coke ED ROS GENERAL - Review of Systems Review Of Systems: See Below Constitutional: Reports: No Symptoms. Denies: Fever, Chills HEENT: Reports: No Symptoms Respiratory: Reports: No Symptoms Cardiovascular: Reports: No Symptoms Endocrine: Reports: No Symptoms GI/Abdominal: Reports: No Symptoms : Reports: No Symptoms Musculoskeletal: Reports: Back Pain (Left), Leg Pain Skin: Reports: No Symptoms Neurological: Reports: No Symptoms Psychiatric: Reports: No Symptoms Hematologic/Lymphatic: Reports: No Symptoms Immunologic: Reports: No Symptoms ED EXAM,LOWER BACK PAIN/INJURY - Physical Exam Exam: See Below Exam Limited By: No Limitations General Appearance: Alert, WD/WN, No Apparent Distress Respiratory/Chest: No Respiratory Distress, Lungs Clear, Normal Breath Sounds, No Accessory Muscle Use, Chest Non-Tender Cardiovascular: Normal Peripheral Pulses, Regular Rate, Rhythm, No Edema, No Gallop, No JVD, No Murmur, No Rub GI/Abdominal: Normal Bowel Sounds, Soft, Non-Tender, No Organomegaly, No Distention, No Abnormal Bruit, No Mass Back Exam: Normal Inspection, Vertebral Tenderness (L1-L2), Other (Significant tenderness over the left SI joint). No: Muscle Spasm, Paraspinal Tenderness Neurological: Alert, Normal Mood/Affect, Normal Dorsiflexion, CN II-XII Intact, Normal Plantar Flexion, Normal Gait, Normal Reflexes, No Motor/Sensory Deficits, Oriented x 3 Psychiatric: Normal Affect, Normal Mood Skin Exam: Warm, Dry, Intact, Normal Color, No Rash Course - Vital Signs Last Recorded V/S: Last Vital Signs Temp 97.5 F 02/08/21 12:48 Pulse 81 02/08/21 12:48 Resp 18 02/08/21 12:48 BP 169/88 H 02/08/21 12:48 Pulse Ox 98 02/08/21 12:48 - Orders/Labs/Meds Meds: Medications Discontinued Medications Generic Name Dose Route Start Last Admin Trade Name Freq PRN Reason Stop Dose Admin Ketorolac Tromethamine 60 mg 02/08/21 13:03 02/08/21 13:17 Ketorolac 60 Mg/2 Ml Sdv IM 02/08/21 13:04 60 mg ONETIME ONE Administration - Re-Assessments/Exams Free Text/Narrative Re-Assessment/Exam: Patient is a 55-year-old female presenting to the emergency department with comp laints of low back pain with radiation down her left leg for the last few weeks. She has been using Flexeril and tramadol that was previously prescribed in the walk-in clinic with little relief. On exam, she has a small area of tenderness over the L1-L2 vertebrae. There is no paraspinal tenderness, however she does have significant tenderness directly over the left SI joint. Given her history of ovarian cancer, I have ordered a CT scan to ensure there are no metastases to the bone however, I feel that her pain is likely related to inflammation of the SI joint. I have ordered Toradol 60 mg IM to be given now. 02/08/21 14:24 CT scan of the lumbar spine shows numerous areas of degenerative changes with questionable neuroforaminal narrowing. MRI would be be needed if clinically indicated. Patient verbalizes significant improvement in her pain with the Toradol. We will discharge her home with a prescription for prednisone and recommendation to follow-up with her primary care provider in approximately 1 week. I will also write a short prescription of [place] for pain. Patient is agreement with this plan. Discharge instructions as documented. Departure - Departure Time of Disposition: 14:25 Disposition: Home, Self-Care 01 Condition: Good Clinical Impression: SI (sacroiliac) joint inflammation - Discharge Information *PRESCRIPTION DRUG MONITORING PROGRAM REVIEWED*: Yes *COPY OF PRESCRIPTION DRUG MONITORING REPORT IN PATIENT LEISA: No Prescriptions: Acetaminophen/HYDROcodone [[place] 325-5 MG] 1 tab PO Q4H PRN #10 tablet PRN Reason: Pain predniSONE [Prednisone] 20 mg PO ASDIRECTED #14 tablet Referrals: Francy Kam MD [Primary Care Provider] - Forms: ED Department Discharge Additional Instructions: You were seen in the emergency department today for low back pain with radiation down your left leg for the past few weeks. CT scan was completed in the ER and did show degenerative changes (arthiritis) but no acute abnormalities. While in the ER, you received an injection of Toradol which did improve your symptoms. As we discussed, your pain is likely due to inflammation within your sacroiliac joint. This would correlate with your area of tenderness over your buttocks. You been started on prednisone which is a steroid. Your first dose was given in ER. Take the remaining doses as prescribed. Continue to use your tramadol and Tylenol as needed for discomfort. You may alternate heat and ice to the area if you find that it is beneficial. Recommend follow-up with your primary care provider in approximately 1 week's time for reevaluation. Return to ER for any new or worsening symptoms of concern. Sepsis Event Note (ED) - Evaluation Sepsis Screening Result: No Definite Risk - Focused Exam Vital Signs: Vital Signs Temp Pulse Resp BP Pulse Ox 02/08/21 12:48 97.5 F 81 18 169/88 H 98
--- NOTE | 2021-02-08 14:18 | CT ---
CT lumbar spine Technique: Multiple axial sections were obtained from the lower T11 level inferiorly through the L5-S1 disc. Reconstructed coronal and sagittal images were obtained. Findings: T11-12: Mild disc space narrowing is seen. Diffuse anterior and lateral osteophytes are noted. Posterior disc is preserved. No central canal stenosis is seen. Neural foramina are felt to be patent. Slight vacuum disc phenomena noted within the anterior disc. T12-L1: Posterior disc is preserved. No central canal stenosis is seen. Neural foramina are patent. L1-2: Slight posterior disc space narrowing is seen. Slight circumferential disc bulge is noted. Mild degenerative apophyseal change is noted. No central canal stenosis is seen. Neural foramina appear to be bilaterally narrowed. L2-3: Slight posterior disc space narrowing is seen. Posterior disc has a concave margin. No central canal stenosis is seen. Neural foramina are felt to be patent. Mild degenerative apophyseal change is seen. L3-4: Mild posterior disc space narrowing is seen. Posterior disc shows a concave margin. Moderately severe degenerative apophyseal change is noted. No central canal stenosis is seen. Neural foramina are felt to be patent. L4-5: Mild spondylolisthesis is seen measuring about 2-3 mm. Severe degenerative apophyseal change is noted. There is mild central canal stenosis. Neural foramina shows disc bulging and may be mildly narrowed. L5-S1: Posterior disc is preserved. Severe degenerative apophyseal change is noted. No central canal stenosis is noted. Neural foramina are not optimally seen. Nothing acute is appreciated. Impression: 1. Degenerative change as noted above. 2. Neural foraminal narrowing appears to be present at several levels which is difficult to confirm because of the CT imaging. MRI would be needed if clinically indicated. Diagnostic code #3
[2021-02-08] MEDS ORDERED: predniSONE 20 MG Tab PO ONE (14:24)
== END 2021-02-08 15:20 | disposition home or self-care (01) ==
LOC: JD.ED 12:38
DX: M46.1 Sacroiliitis, not elsewhere classified (principal); I10 Essential (primary) hypertension; K21.9 Gastro-esophageal reflux disease without esophagitis; M19.90 Unspecified osteoarthritis, unspecified site; Z91.048 Other nonmedicinal substance allergy status; Z88.0 Allergy status to penicillin; Z88.1 Allergy status to other antibiotic agents; Z88.2 Allergy status to sulfonamides; Z79.82 Long term (current) use of aspirin; Z79.899 Other long term (current) drug therapy
CPT/HCPCS: 72131; 96372; 99283; J1885; J7512; 99284

== ENCOUNTER 2021-03-06 15:46 | Emergency (ER) | payer MEDICARE, MEDICAID ==
--- NOTE | 2021-03-06 17:01 | EDM.PDOC ---
ED HPI GENERAL MEDICAL PROBLEM - General Chief Complaint: Upper Extremity Injury/Pain Stated Complaint: SWOLLEN LT SHOULDER/PAIN Time Seen by Provider: 03/06/21 16:10 Source of Information: Reports: Patient, Long-Term Records History Limitations: Reports: No Limitations - History of Present Illness INITIAL COMMENTS - FREE TEXT/NARRATIVE: 55-year-old female who is a resident of a long term presents to the emergency department today with complaints of swelling and pain to her left shoulder. She states the pain and swelling started 4 days ago. She denies any recent falls or injury to the shoulder. She is unable to stand so she does use the stand aid/Dom lift for assistance with transfers. She states that she may have caught her left arm in the sling however nothing that she can concretely remember. Denies any recent fever, chills, nausea, vomiting or diarrhea. She is unable to raise her arm laterally or anteriorly in front of her due to the pain of the left shoulder. Left Shoulder Pain Score (Numeric/FACES): 6 - Related Data Allergies Allergy/AdvReac Type Severity Reaction Status Date / Time castor oil Allergy Severe Anaphylactic Verified 03/06/21 16:14 Shock amoxicillin [From Augmentin] Allergy Intermediate Rash Verified 03/06/21 16:14 clavulanic acid Allergy Intermediate Rash Verified 03/06/21 16:14 [From Augmentin] levofloxacin [From Levaquin] Allergy Intermediate Rash Verified 03/06/21 16:14 losartan Allergy Intermediate Rash Verified 03/06/21 16:14 Penicillins Allergy Intermediate Rash Verified 03/06/21 16:14 sulfamethoxazole Allergy Intermediate Rash Verified 03/06/21 16:14 [From Bactrim] trimethoprim [From Bactrim] Allergy Intermediate Rash Verified 03/06/21 16:14 warfarin [From Coumadin] Allergy Intermediate Rash Verified 03/06/21 16:14 povidone-iodine Allergy Unknown Cannot Verified 03/06/21 16:14 Remember Home Meds: Home Meds Acetaminophen [Tylenol] 325 mg PO DAILY PRN 03/26/19 [History] Pantoprazole [ProTONIX] 40 mg PO DAILY 03/26/19 [History] Potassium Chloride 20 meq PO DAILY 03/26/19 [History] Spironolactone [Aldactone] 100 mg PO DAILY 03/26/19 [History] traMADol HCl [Tramadol HCl] 50 mg PO TID PRN 03/26/19 [History] Clotrimazole [Clotrimazole 1%] 1 appful TOP DAILY PRN 11/06/20 [History] Famotidine 10 mg PO BID 11/06/20 [History] Fluticasone Propionate [Flonase] 1 spray LINCOLN BID 11/06/20 [History] Loratadine 10 mg PO DAILY 11/06/20 [History] Aspirin [Ecotrin EC] 325 mg PO DAILY #30 tab.ec 11/09/20 [Rx] Chlorthalidone 25 mg PO DAILY #30 tablet 11/09/20 [Rx] Metoprolol Succinate [Toprol XL 50mg] 75 mg PO DAILY #45 tab.er 11/09/20 [Rx] amLODIPine [Norvasc] 5 mg PO DAILY #30 tablet 11/09/20 [Rx] Calcium Carbonate [Tums] 2 tab PO ASDIRECTED PRN 02/08/21 [History] Cyclobenzaprine [Flexeril] 10 mg PO TID PRN 02/08/21 [History] predniSONE [Prednisone] 20 mg PO ASDIRECTED #14 tablet 02/08/21 [Rx] Clindamycin HCl 150 mg PO TID #42 capsule 03/06/21 [Rx] Clindamycin HCl 300 mg PO TID #42 capsule 03/06/21 [Rx] Naproxen 500 mg PO Q12H #28 tablet 03/06/21 [Rx] Past Medical History HEENT History: Reports: Impaired Vision Cardiovascular History: Reports: None, Hypertension Other Cardiovascular History: Heart murmur when younger, states "every now and then doctors can hear it." Respiratory History: Reports: Other (See Below) Other Respiratory History: lung cancer-nodules benign Gastrointestinal History: Reports: GERD Genitourinary History: Reports: Other (See Below) Other Genitourinary History: ovarian cancer Musculoskeletal History: Reports: Arthritis Oncologic (Cancer) History: Reports: Lung, Ovarian Other Oncologic History: had chemo for ovarian cancer Dermatologic History: Reports: Cellulitis, Chronic Cellulitis, Venous Stasis Dermatitis Social & Family History - Family History HEENT: Reports: Macular Degeneration Other HEENT Family History: Both parents. Cardiac: Reports: Hypertension Other Cardiac Family History: HTN in both parents. Other Neurological Family History: Father- stroke Endocrine/Metabolic: Reports: Diabetes, type II Other Endocrine/Metabolic Family History: Both parents. - Tobacco Use Tobacco Use Status *Q: Never Tobacco User - Caffeine Use Caffeine Use: Reports: None Other Caffeine Use: coke - Recreational Drug Use Recreational Drug Use: No Review of Systems - Review of Systems Review Of Systems: Comprehensive ROS is negative, except as noted in HPI. ED EXAM, GENERAL - Physical Exam Exam: See Below Exam Limited By: No Limitations General Appearance: Alert, WD/WN, No Apparent Distress Ears: Normal External Exam, Hearing Grossly Normal Nose: Normal Inspection Throat/Mouth: Normal Inspection, Normal Lips, Normal Voice, No Airway Compromise Head: Atraumatic Neck: Normal Inspection, Supple Respiratory/Chest: No Respiratory Distress, No Accessory Muscle Use Cardiovascular: Normal Peripheral Pulses, Regular Rate, Rhythm GI/Abdominal: No Distention (Female) Exam: Deferred Rectal (Female) Exam: Deferred Back Exam: Normal Inspection Extremities: Joint Swelling (Left shoulder/axonal humerus), Limited Range of Motion (Left upper extremity). No: Normal Inspection (Swelling noted to the left anterior shoulder area), Non-Tender (Left shoulder tenderness), Increased Warmth Neurological: Alert, Oriented, Normal Cognition Psychiatric: Normal Affect, Normal Mood Skin Exam: Warm, Dry, Intact, Normal Color, No Rash Lymphatic: No Adenopathy Course - Vital Signs Text/Narrative:: 55-year-old female presents with left shoulder swelling and pain that started 4 days ago. She does not recall any injury to left shoulder and she denies falling. She states that they do use a Dom lift type of device to assist her into the wheelchair. She states that maybe her arm could have gotten caught in this however nothing concrete that she can remember. Left shoulder, at the area of the humeral head anteriorly is swollen significantly. It is approximately the size of a softball. There is no redness or warmth noted to the area. The swollen area is slightly firm and it is painful with palpation. Last Recorded V/S: Last Vital Signs Temp 97.4 F 03/06/21 16:11 Pulse 86 03/06/21 16:11 Resp 16 03/06/21 16:11 BP 143/103 H 03/06/21 16:11 Pulse Ox 98 03/06/21 16:11 - Orders/Labs/Meds Orders: Active Orders 24 hr Category Date Time Status Shoulder Comp Lt [CR] Stat Exams 03/06/21 16:43 Taken Labs: Laboratory Tests 03/06/21 03/06/21 03/06/21 Range/Units 17:34 17:34 17:34 WBC 13.34 H (3.98-10.04) K/mm3 RBC 4.24 (3.98-5.22) M/mm3 Hgb 11.2 (11.2-15.7) gm/dl Hct 37.4 (34.1-44.9) % MCV 88.2 D (79.4-94.8) fl MCH 26.4 (25.6-32.2) pg MCHC 29.9 L (32.2-35.5) g/dl RDW Std Deviation 53.1 H (36.4-46.3) fL Plt Count 705 H D (182-369) K/mm3 MPV 8.9 L (9.4-12.3) fl Neut % (Auto) 83.4 H (34.0-71.1) % Lymph % (Auto) 7.6 L (19.3-51.7) % Kin[place] % (Auto) 5.9 (4.7-12.5) % Eos % (Auto) 1.0 (0.7-5.8) Baso % (Auto) 0.1 (0.1-1.2) % Neut # (Auto) 11.12 H (1.56-6.13) K/mm3 Lymph # (Auto) 1.01 L (1.18-3.74) K/mm3 Kinney # (Auto) 0.79 H (0.24-0.36) K/mm3 Eos # (Auto) 0.14 (0.04-0.36) K/mm3 Baso # (Auto) 0.01 (0.01-0.08) K/mm3 Manual Slide Review Abnormal smear ESR 86 H (0-20) mm/hr Sodium 134 L (136-145) mEq/L Potassium 4.8 (3.5-5.1) mEq/L Chloride 97 L (98-107) mEq/L Carbon Dioxide 28 (21-32) mEq/L Anion Gap 13.8 (5-15) BUN 44 H (7-18) mg/dL Creatinine 1.3 H (0.55-1.02) mg/dL Est Cr Clr Drug Dosing 39.50 mL/min Estimated GFR (MDRD) 42 (>60) mL/min BUN/Creatinine Ratio 33.8 H (14-18) Glucose 88 (74-106) mg/dL Uric Acid 7.0 H (2.6-6.0) mg/dL Calcium 9.5 (8.5-10.1) mg/dL Total Bilirubin 0.3 (0.2-1.0) mg/dL AST 22 (15-37) U/L ALT 30 (14-59) U/L Alkaline Phosphatase 289 H (46-116) U/L C-Reactive Protein 24.0 H* (<1.0) mg/dL Total Protein 7.7 (6.4-8.2) g/dl Albumin 1.6 L (3.4-5.0) g/dl Globulin 6.1 gm/dL Albumin/Globulin Ratio 0.3 L (1-2) - Re-Assessments/Exams Free Text/Narrative Re-Assessment/Exam: 03/06/21 17:28 I have also ordered labs on this patient to rule out an infective process. 03/06/21 18:55 Hematology reveals a WBC of 13.34, hemoglobin 11.2, hematocrit 37.4, platelet count 705, ESR 86, sodium 134, chloride 97, BUN 44, creatinine 1.3, glucose 88, uric acid 7.0, alk phos 289, C-reactive protein 24.0 I discussed this case with Dr. Garcia and had him evaluate the patient as well. He agrees that it would be appropriate to start the patient on antibiotics and follow up with Dr. Guy/Racquel Chao to further evaluate. Pt will also be instructed to take Naproxen. Departure - Departure Time of Disposition: 19:03 Disposition: Home, Self-Care 01 Condition: Good Clinical Impression: Bursitis of shoulder, left - Discharge Information Prescriptions: Clindamycin HCl 150 mg PO TID #42 capsule Clindamycin HCl 300 mg PO TID #42 capsule Naproxen 500 mg PO Q12H #28 tablet Referrals: Kuldeep Plata MD [Primary Care Provider] - Forms: ED Department Discharge Additional Instructions: You were seen in the emergency department today with complaints of pain to your left shoulder. X-ray and labs were completed. You have bursitis in your left shoulder. You were given antibiotics and pain medication in the emergency department. You will need to take clindamycin 450 mg 3 times a day for the next 2 weeks. You also need to take naproxen every 12 hours for the next 2 weeks. You will need to call [facility] [place] first thing tomorrow morning and schedule an appointment to follow-up regarding having your shoulder drained and have further evaluation. Please let them know that you have been in the evaluated in the emergency department today and need follow-up for soon as possible. Should your condition worsen or change, if you develop fever, chills, nausea, vomiting, do not hesitate returning to the emergency department. Sepsis Event Note (ED) - Evaluation Sepsis Screening Result: No Definite Risk - Focused Exam Vital Signs: Vital Signs Temp Pulse Resp BP Pulse Ox 03/06/21 16:11 97.4 F 86 16 143/103 H 98 - My Orders Last 24 Hours: My Active Orders 03/06/21 16:43 Shoulder Comp Lt [CR] Stat - Assessment/Plan Last 24 Hours: My Active Orders 03/06/21 16:43 Shoulder Comp Lt [CR] Stat
[2021-03-06] MEDS ORDERED: Clindamycin HCl 150 MG Cap PO STA (19:01)
--- NOTE | 2021-03-06 19:51 | CR ---
Left shoulder: 2 views of the left shoulder were obtained. Comparison: No prior left shoulder studies available. Acromioclavicular joint appears within normal limits. Glenohumeral joint is not optimally seen. Small calcification is seen within the axillary recess of the shoulder. No acute fracture or dislocation is seen. Degenerative endplate spurring is noted within the spine. Prior lung surgery is seen on the left side. Impression: 1. Glenohumeral joint not optimally seen. 2. Other findings believed to be incidental as noted above. Diagnostic code #2
[2021-03-06] MEDS ORDERED: Naproxen 500 MG Tab PO SCH (21:00)
== END 2021-03-06 20:15 | disposition home or self-care (01) ==
LOC: JD.ED 15:46
DX: M75.52 Bursitis of left shoulder (principal); I10 Essential (primary) hypertension; K21.9 Gastro-esophageal reflux disease without esophagitis; M19.90 Unspecified osteoarthritis, unspecified site; Z88.0 Allergy status to penicillin; Z88.1 Allergy status to other antibiotic agents; Z88.8 Allergy status to other drugs, medicaments and biological substances; Z88.2 Allergy status to sulfonamides; Z91.018 Allergy to other foods; Z79.82 Long term (current) use of aspirin; Z79.899 Other long term (current) drug therapy
CPT/HCPCS: 36415; 73030; 80053; 84550; 85025; 85652; 86140; 99283; A9270

== ENCOUNTER 2021-10-31 08:07 | Day surgery (SDC) | payer MEDICARE, MEDICAID ==
--- NOTE | 2021-10-31 07:35 | PCM.PREANE ---
Preanesthetic Assessment - Procedure Proposed Procedure: EGD, colonoscopy - Anesthesia/Transfusion/Family Hx Anesthesia History: Prior Anesthesia Without Reaction Family History of Anesthesia Reaction: No Transfusion History: No Prior Transfusion(s) (per patient) - Review of Systems General: Other (currently c/o sinus 'irritation" ) Pulmonary: No Symptoms Cardiovascular: Edema, Lightheadedness ("when I go to the bathroom" her METS are < 4 with her bedbound. ) Gastrointestinal: Abdominal Pain, Other (GERD history ) Neurological: Other (pt admits to [facility] in an [facility] and now a longterm since march 2021. she does not ambulate at all, she uses a [employer] Guidesist device to use the toiet with NH assist. ) - Physical Assessment NPO Status Date: 10/31/21 NPO Status Time: 17:30 Height: 1.6 m Weight: 117.934 kg ASA Class: 4 Mental Status: Alert & Oriented x3 Dentition: Reports: Normal Dentition, [place](s) (permanent ) Thyro-Mental Finger Breadths: 3 Mouth Opening Finger Breadths: 5 ROM/Head Extension: Full Lungs: Decreased Breath Sounds Cardiovascular: Regular Rate, Regular Rhythm - Lab Values: reviewed from [place] - Allergies Allergies/Adverse Reactions: Allergies Allergy/AdvReac Type Severity Reaction Status Date / Time castor oil Allergy Severe Anaphylactic Verified 03/06/21 16:14 Shock amoxicillin [From Augmentin] Allergy Intermediate Rash Verified 03/06/21 16:14 clavulanic acid Allergy Intermediate Rash Verified 03/06/21 16:14 [From Augmentin] levofloxacin [From Levaquin] Allergy Intermediate Rash Verified 03/06/21 16:14 losartan Allergy Intermediate Rash Verified 03/06/21 16:14 Penicillins Allergy Intermediate Rash Verified 03/06/21 16:14 sulfamethoxazole Allergy Intermediate Rash Verified 03/06/21 16:14 [From Bactrim] trimethoprim [From Bactrim] Allergy Intermediate Rash Verified 03/06/21 16:14 warfarin [From Coumadin] Allergy Intermediate Rash Verified 03/06/21 16:14 povidone-iodine Allergy Unknown Cannot Verified 03/06/21 16:14 Remember MARCE Inhibitors Allergy Cough Verified 10/30/21 11:44 Sulfa (Sulfonamide Allergy Rash Verified 10/30/21 11:44 Antibiotics) povidone AdvReac Cannot Verified 10/30/21 11:44 Remember - Blood Blood Available: No - Anesthesia Plan Pre-Op Medication Ordered: None - Acknowledgements Anesthesia Type Planned: MAC Alternatives and Risks of Anesthesia Discussed w Pt/Guardian: Yes Pt/Guardian Understands and Agrees with Anesthesia Plan: Yes Additional Comments: EF 40% PreAnesthesia Questionnaire HEENT History: Reports: Impaired Vision Cardiovascular History: Reports: None, Hypertension Other Cardiovascular History: Heart murmur when younger, states "every now and then doctors can hear it." Respiratory History: Reports: Other (See Below) Other Respiratory History: lung cancer-nodules benign Gastrointestinal History: Reports: Colon Polyp, Diverticulosis, GERD Other Gastrointestinal History: gastric ulcer, adenomatous colon polyp, gastric intestinal metaplasia, ventral hernia Genitourinary History: Reports: Other (See Below) Other Genitourinary History: ovarian cancer Musculoskeletal History: Reports: Arthritis, Osteoarthritis, Other (See Below) Other Musculoskeletal History: left knee OA, SI joint inflammation, bursitis left shoulder, DJD Endocrine/Metabolic History: Reports: Obesity/BMI 30+ Hematologic History: Reports: Anemia Oncologic (Cancer) History: Reports: Lung, Ovarian Other Oncologic History: 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), ovarian cancer, lung cancer, adrenal adenoma Dermatologic History: Reports: Cellulitis, Chronic Cellulitis, Venous Stasis Dermatitis - Past Surgical History GI Surgical History: Reports: Appendectomy, Bariatric Procedure, Cholecystectomy, Colonoscopy, EGD, Polypectomy, Other (See Below) Other GI Surgeries/Procedures: gastric bypass, colonoscopy/EGD 2015 Female Surgical History: Reports: Hysterectomy Other Female Surgeries/Procedures: Hysterectomy with BSO Endocrine Surgical History: Reports: Other (See Below) Other Endocrine Surgeries/Procedures: Adernal Adenoma Musculoskeletal Surgical History: Reports: Knee Replacement Other Musculoskeletal Surgeries/Procedures:: R. TKA Dermatological Surgical History: Reports: Other (See Below) - SUBSTANCE USE Tobacco Use Status *Q: Never Tobacco User Recreational Drug Use History: No - HOME MEDS Home Medications: Home Meds Acetaminophen [Tylenol] 325 mg PO DAILY PRN 03/26/19 [History] Pantoprazole [ProTONIX] 40 mg PO DAILY 03/26/19 [History] Spironolactone [Aldactone] 100 mg PO DAILY 03/26/19 [History] traMADol HCl [Tramadol HCl] 50 mg PO TID PRN 03/26/19 [History] Clotrimazole [Clotrimazole 1%] 1 appful TOP DAILY PRN 11/06/20 [History] Fluticasone Propionate [Flonase] 1 spray [place] BID 11/06/20 [History] Loratadine 10 mg PO DAILY 11/06/20 [History] Aspirin [Ecotrin EC] 325 mg PO DAILY #30 tab.ec 11/09/20 [Rx] Chlorthalidone 25 mg PO DAILY #30 tablet 11/09/20 [Rx] Metoprolol Succinate [Toprol XL 50mg] 75 mg PO DAILY #45 tab.er 11/09/20 [Rx] amLODIPine [Norvasc] 5 mg PO DAILY #30 tablet 11/09/20 [Rx] Calcium Carbonate [Tums] 2 tab PO ASDIRECTED PRN 02/08/21 [History] Cyclobenzaprine [Flexeril] 10 mg PO TID PRN 02/08/21 [History] - CURRENT (IN HOUSE) MEDS Current Meds: Current Medications Lactated Ringer's (Ringers, Lactated) 1,000 mls @ 125 mls/hr IV ASDIRECTED MAGALI Stop: 10/31/21 23:00 Lidocaine/Sodium Bicarbonate (Lidocaine 1%/Sod Bicarbonate In Ns 8.4% 1 Ml Syringe) 0.25 ml IDERM ONETIME PRN PRN Reason: Prior to IV Start Stop: 10/31/21 18:00 Sodium Chloride (Sodium Chloride 0.9% 10 Ml Syringe) 10 ml FLUSH 0900,2100 [facility] Stop: 10/31/21 23:00
[~2021-10-31 08:07] MED LIST: Lactated Ringers 1,000 ML IV SCH; Lidocaine 1% 4 ML ONE; Lidocaine 1%/Sod Bicarbonate in NS 8.4% 1 ML Syringe IDERM PRN; Metoprolol Succinate 25 MG Tab.ER PO SCH; Metoprolol Succinate 50 MG Tab.ER PO SCH; Propofol 200 MG/20 ML SDV ONE; Sodium Chloride 0.9% 10 ML Syringe FLUSH SCH
[2021-10-31] MEDS ORDERED: Ketamine 500 mg/10 ML MDV ONE (08:40)
[2021-10-31] MEDS ORDERED: Propofol 200 MG/20 ML SDV ONE (09:09)
[2021-10-31] MEDS ORDERED: fentaNYL 100 MCG/2 ML SDV ONE (09:29)
[2021-10-31] MEDS ORDERED: Lactated Ringers 0 ML ONE (09:31)
[2021-10-31] MEDS ORDERED: Lactated Ringers 1,000 ML ONE (09:31)
--- NOTE | 2021-10-31 09:41 | PCM.OPNOTE ---
- General Post-Op/Procedure Note Date of Surgery/Procedure: 10/31/21 Operative Procedure(s): EGD and colonoscopy Findings: 1. Gastritis 2. Hiatal hernia 3. Diverticulosis 4. Descending colon polyp 5. Internal hemorrhoids Pre Op Diagnosis: anemia Post-Op Diagnosis: same Anesthesia Technique: MAC Primary Surgeon: Sharda Monroe Anesthesia Provider: Anjali Hannah Pathology: 1. Gastric remnant/anastomosis biopsies 2. Descending colon polyp Fluid Replacement, Intraop: 900 Output, Urine Amount: 0 EBL in mLs: 0 Complications: none apparent Condition: Good
--- NOTE | 2021-10-31 09:51 | PCM.PRNOTE ---
- Free Text/Narrative Note: Operative Report Date of Procedure: October 31, 2021 Pre Op Diagnosis: anemia Post-Op Diagnosis: Operative Procedures: 1. EGD with biopsy 2. Colonoscopy to the cecum with polypectomy Primary Surgeon: Sharda Monroe MD Anesthesia Provider: Anjali Hannah CRNA Anesthesia Technique: MAC IV Fluid Replacement, Intraop: 900cc crystalloid Output, Urine Amount: 0cc EBL in mLs: 0cc Findings: 1. Gastritis 2. Hiatal hernia 3. Diverticulosis 4. Descending colon polyp 5. Internal hemorrhoids Specimens: 1. Gastric remnant/anastomosis biopsies 2. Descending colon polyp Drain/Tubes: None Indication: The patient is a 56-year-old lady who presented to the clinic with findings of anemia. She has a history of gastric ulcer. The patient was consented for a diagnostic EGD and colonoscopy. Risks of bleeding, and perforation were discussed, and the patient agreed to the risks and wished to proceed. Description of the procedure: The patient was taken back to the endoscopy suite, and placed in the left lateral decubitus position. A bite block was placed. The patient was sedated with MAC anesthesia. The Olympus video endoscope was inserted into the oropharynx and guided under direct vision into the esophagus, stomach, and jejunal limb. The jejunal limb appeared normal. The gastric remnant was erythematous at the anastomosis, and this was biopsied with a cold biopsy forceps. No erosions or ulcers were noted. The scope was withdrawn to the esophagus. A this point we noted a hiatal hernia. No Barretts esophagus changes were noted. The endoscope was then withdrawn. Next, anorectal examination was performed. Hemorrhoids were noted externally with an external skin tag. The scope was placed into the rectum and advanced to cecum. Upon reaching the cecum, and the patients cecum was entered. There was minimal tortuosity of the colon. The ileocecal valve was well visualized and the appendiceal orifice identified. At this point, the scope was slowly withdrawn, paying attention to the mucosa. The patient had adequate bowel prep. Mild diverticulosis was noted in the descending and sigmoid colon. A 6mm pedunculated polyp was seen in the descending colon. In the rectum, scope was retroflexed and some hemorrhoidal tissue was noted. The scope was placed back in the lumen and excess air was aspirated. The scope was removed. The patient tolerated the procedure very well. Complications: None apparent Condition: The patient was transported to PACU in stable condition. Sharda Monroe MD General Surgery
--- NOTE | 2021-10-31 09:54 | PCM48HPAN ---
Post Anesthesia Note - EVALUATION WITHIN 48HRS OF ANESTHETIC Vital Signs in Normal Range: Yes Patient Participated in Evaluation: Yes Respiratory Function Stable: Yes Airway Patent: Yes Cardiovascular Function Stable: Yes Hydration Status Stable: Yes (discomfort with co2 gas ) Pain Control Satisfactory: Yes Nausea and Vomiting Control Satisfactory: Yes Mental Status Recovered: Yes Vital Signs: Last Vital Signs Temp 37.3 C 10/31/21 07:58 Pulse 93 10/31/21 07:58 Resp 16 10/31/21 07:58 BP 158/98 H 10/31/21 07:58 Pulse Ox 94 L 10/31/21 07:58
[2021-10-31] MEDS ORDERED: Simethicone 80 MG Tab.Chew PO ONE (09:58)
== END 2021-10-31 11:19 | disposition home or self-care (01) ==
LOC: JD.SDS 08:07
PROVIDERS: ATTEND Surgery
DX: D64.9 Anemia, unspecified (principal); K63.5 Polyp of colon; K29.70 Gastritis, unspecified, without bleeding; K44.9 Diaphragmatic hernia without obstruction or gangrene; K57.30 Diverticulosis of large intestine without perforation or abscess without bleeding; K64.8 Other hemorrhoids; I10 Essential (primary) hypertension; K21.9 Gastro-esophageal reflux disease without esophagitis; E66.01 Morbid (severe) obesity due to excess calories; Z90.49 Acquired absence of other specified parts of digestive tract; Z98.890 Other specified postprocedural states; Z79.899 Other long term (current) drug therapy; Z88.0 Allergy status to penicillin; Z88.8 Allergy status to other drugs, medicaments and biological substances; Z88.2 Allergy status to sulfonamides
CPT/HCPCS: 43239; 45380; A9270; J2704; J3010; J7120; 00813; 88305

== ENCOUNTER 2023-08-21 14:50 | Day surgery (SDC) | payer MEDICARE, MEDICAID ==
[2023-08-21] MEDS: Tobramycin 0.3% Ophth Drops 5 ML Bottle EYERT SCH ×3 (13:48→15:40)
[2023-08-21] MEDS: Brimonidine 0.2% Ophth Soln 5 ML Bottle EYERT SCH ×3 (13:53→15:40)
[2023-08-21] MEDS: Phenylephrine 2.5% Ophth Soln 2 ML Bot EYERT SCH ×5 (13:59→15:21)
[2023-08-21] MEDS: Tropicamide 1% Ophth Soln 3 ML Bottle EYERT SCH ×4 (14:02→14:32)
[2023-08-21] MEDS: Tetracaine HCl/PF 0.5% 4 ML Bottle EYEBOTH SCH ×4 (14:40→15:21)
[~2023-08-21 14:50] MED LIST changes: +Cefuroxime 10 MG/ML SYRINGE EYERT SCH; -Lactated Ringers 1,000 ML IV SCH; -Lidocaine 1% 4 ML ONE; +Lidocaine 1% PF 2 ML SDV INJECT SCH; -Lidocaine 1%/Sod Bicarbonate in NS 8.4% 1 ML Syringe IDERM PRN; -Metoprolol Succinate 25 MG Tab.ER PO SCH; -Metoprolol Succinate 50 MG Tab.ER PO SCH; +Pilocarpine 4% Ophth Soln 15 ML Bot EYERT SCH; +Polymyxin B/Trimethoprim 10 ML Bottle EYERT SCH; -Propofol 200 MG/20 ML SDV ONE; -Sodium Chloride 0.9% 10 ML Syringe FLUSH SCH
== END 2023-08-21 16:15 ==
LOC: JD.SDS 14:50
PROVIDERS: ATTEND Ophthalmology
DX: H25.89 Other age-related cataract (principal); H21.81 Floppy iris syndrome; H21.41 Pupillary membranes, right eye; H16.103 Unspecified superficial keratitis, bilateral; H16.223 Keratoconjunctivitis sicca, not specified as Sjogren's, bilateral; H02.831 Dermatochalasis of right upper eyelid; H02.834 Dermatochalasis of left upper eyelid; I11.0 Hypertensive heart disease with heart failure; I50.9 Heart failure, unspecified; M19.90 Unspecified osteoarthritis, unspecified site; E66.9 Obesity, unspecified; K21.9 Gastro-esophageal reflux disease without esophagitis; D68.9 Coagulation defect, unspecified; Z96.1 Presence of intraocular lens; Z98.42 Cataract extraction status, left eye; Z83.518 Family history of other specified eye disorder; Z79.82 Long term (current) use of aspirin; Z79.899 Other long term (current) drug therapy; Z88.1 Allergy status to other antibiotic agents; Z88.0 Allergy status to penicillin; Z88.8 Allergy status to other drugs, medicaments and biological substances; Z88.2 Allergy status to sulfonamides
CPT/HCPCS: 66982; A9270; J0697; J3490; V2632

== ENCOUNTER 2024-01-12 16:42 | Inpatient (IN) | payer MEDICARE, MEDICAID ==
[2024-01-12] MEDS ORDERED: Sodium Chloride 0.9% 10 ML Syringe FLUSH PRN (17:30)
[2024-01-12 18:07] LABS: BASOPHILS ABSOLUTE AUTO 0.1 K/mm3 (0.0-0.2); BASOPHILS PERCENT AUTO 0.2 % (0.0-1.0); EOSINOPHILS ABSOLUTE AUTO 0.2 K/mm3 (0.0-0.4); EOSINOPHILS PERCENT AUTO 0.6 % (0.0-6.0); HEMATOCRIT 31.9 % (37.0-47.0); HEMOGLOBIN 9.8 gm/dl (12.0-16.0); IMMATURE GRAN ABSOLUTE AUTO 1.09 K/mm3 (0.00-0.05); IMMATURE GRAN PERCENT AUTO 4.5 % (0.0-0.4); LYMPHOCYTES ABSOLUTE AUTO 0.9 K/mm3 (1.0-4.8); LYMPHOCYTES PERCENT AUTO 3.7 % (24.0-44.0); MEAN CORPUSCULAR HEMOGLOBIN 29.5 pg (28.0-32.0); MEAN CORPUSCULAR HGB CONC 30.7 g/dl (32.0-36.0); MEAN CORPUSCULAR VOLUME 96.1 fl (83.0-99.0); MEAN PLATELET VOLUME 8.6 fl (9.4-12.3); MONOCYTES ABSOLUTE AUTO 0.5 K/mm3 (0.0-0.8); MONOCYTES PERCENT AUTO 2.2 % (0.0-8.0); NEUTROPHILS ABSOLUTE AUTO 21.7 K/mm3 (1.8-7.7); NEUTROPHILS PERCENT AUTO 88.8 % (41.0-71.0); PLATELET COUNT,PLT 437 K/mm3 (150-400); RED BLOOD CELL COUNT 3.32 M/mm3 (4.10-5.30); WHITE BLOOD CELL COUNT,WBC 24.36 K/mm3 (3.9-11.3)
[2024-01-12 18:28] LABS: A/G RATIO 0.3 (1-2); ALANINE AMINOTRANSFERASE,ALT 40 U/L (14-59); ALBUMIN 1.6 g/dl (3.4-5.0); ALKALINE PHOSPHATASE 231 U/L (46-116); ANION GAP 15.3 (5-15); ASPARTATE AMNIOTRANSFERASE,AST 24 U/L (15-37); BILIRUBIN TOTAL 0.2 mg/dL (0.2-1.0); BLOOD UREA NITROGEN,BUN 31 mg/dL (7-18); BUN/CREATININE RATIO 25.8 (14-18); CALCIUM 8.9 mg/dL (8.5-10.1); CARBON DIOXIDE,CO2 23 mEq/L (21-32); CHLORIDE,CL 102 mEq/L (98-107); CREATININE 1.2 mg/dL (0.55-1.02); ESTIMATED GFR 52 mL/min (>60); GLUCOSE RANDOM 93 mg/dL (70-99); POTASSIUM,K 5.3 mEq/L (3.5-5.1); PROTEIN TOTAL,TP 7.3 g/dl (6.4-8.2); SODIUM,NA 135 mEq/L (136-145)
[2024-01-12 18:35] LABS: C-REACTIVE PROTEIN > 25.00 mg/dL (<0.30)
[2024-01-12] MEDS: Cefepime 2 GM in Sodium Chloride 0.9% 50 ML IV ONE (19:17)
[2024-01-12] MEDS: Cefepime 2 GM Vial ONE (19:18)
[2024-01-12 19:38] LABS: SLIDE REVIEW ABNORMAL SMEAR
[2024-01-12] MEDS: VANCOmycin 1.5 GM/300 ML 1.5 GM in Premix Bag 1 BAG IV SCH (20:01)
[2024-01-12] MEDS ORDERED: Fluticasone NASAL Spray 16 GM Bottle NASBOTH PRN (21:17)
[2024-01-12] MEDS ORDERED: Calcium Carbonate 500 MG Tab.Chew PO PRN (21:17)
[2024-01-12] MEDS ORDERED: guaiFENesin 100 MG/5 ML Soln 10 ML UD Cup PO PRN (22:01)
[2024-01-12] MEDS: Heparin Sodium 5,000 Units/ML Vial SUBCUT SCH (23:16)
[2024-01-12] MEDS: Sodium Chloride 0.9% 1,000 ML IV SCH (23:16)
[2024-01-12] MEDS: Benzocaine/Cetylpyridinium/Menthol Lozenge MUCMEM PRN (23:16)
[2024-01-13] MEDS: Cefepime 2 GM in Sodium Chloride 0.9% 50 ML IV SCH (02:36)
[2024-01-13 04:40] LABS: BASOPHILS PERCENT AUTO 0.2 % (0.0-1.0); EOSINOPHILS ABSOLUTE AUTO 0.1 K/mm3 (0.0-0.4); EOSINOPHILS PERCENT AUTO 0.6 % (0.0-6.0); HEMATOCRIT 29.4 % (37.0-47.0); IMMATURE GRAN ABSOLUTE AUTO 0.78 K/mm3 (0.00-0.05); IMMATURE GRAN PERCENT AUTO 3.6 % (0.0-0.4); LYMPHOCYTES ABSOLUTE AUTO 0.9 K/mm3 (1.0-4.8); LYMPHOCYTES PERCENT AUTO 3.9 % (24.0-44.0); MEAN CORPUSCULAR HEMOGLOBIN 29.6 pg (28.0-32.0); MEAN CORPUSCULAR HGB CONC 30.6 g/dl (32.0-36.0); MEAN CORPUSCULAR VOLUME 96.7 fl (83.0-99.0); MEAN PLATELET VOLUME 8.8 fl (9.4-12.3); MONOCYTES ABSOLUTE AUTO 0.7 K/mm3 (0.0-0.8); NEUTROPHILS ABSOLUTE AUTO 19.3 K/mm3 (1.8-7.7); NEUTROPHILS PERCENT AUTO 88.7 % (41.0-71.0); NRBC ABSOLUTE 0.02 (0.00-0.02); NRBC PERCENT 0.1 % (0.0-0.2); RED BLOOD CELL COUNT 3.04 M/mm3 (4.10-5.30)
[2024-01-13 05:06] LABS: A/G RATIO 0.2 (1-2); ALBUMIN 1.3 g/dl (3.4-5.0); ANION GAP 16.9 (5-15); BUN/CREATININE RATIO 24.2 (14-18); CALCIUM 8.6 mg/dL (8.5-10.1); CREATININE 1.2 mg/dL (0.55-1.02); EST CRCL DRUG DOSING (CG) 46.67 mL/min; PROTEIN TOTAL,TP 6.8 g/dl (6.4-8.2)
[2024-01-13 05:08] LABS: PLATELET COUNT,PLT 329 K/mm3 (150-400)
[2024-01-13 05:13] LABS: POTASSIUM,K 5.9 mEq/L (3.5-5.1)
[2024-01-13 05:32] LABS: BILIRUBIN TOTAL 0.2 mg/dL (0.2-1.0)
[2024-01-13 06:27] LABS: SLIDE REVIEW ABNORMAL SMEAR
[2024-01-13] MEDS: Pantoprazole 40 MG Tab.CR PO SCH (06:48)
[2024-01-13] MEDS ORDERED: LACTOBACILLUS ACIDOPHILUS 100 MG PO SCH (09:00)
[2024-01-13] MEDS ORDERED: Non-Formulary Medication 1 Each (Azelastine Hcl [Azelastine Hcl] 137 MCG/0.137 ML Spray.Pu INH SCH (09:00)
[2024-01-13] MEDS: Saccharomyces Boulardii (Probiotic) 250 MG Cap PO SCH (09:51)
[2024-01-13] MEDS: Spironolactone 100 MG Tab PO SCH (09:51)
[2024-01-13] MEDS: Metoprolol Succinate 25 MG Tab.ER PO SCH (09:52)
[2024-01-13] MEDS: Sennosides/Docusate Sodium 50-8.6 MG Tab PO SCH (09:56)
[2024-01-13] MEDS: Folic Acid 1 MG Tab PO SCH (09:56)
[2024-01-13] MEDS: amLODIPine 5 MG Tab PO SCH (09:57)
[2024-01-13] MEDS: Bisacodyl 5 MG Tab PO SCH (09:57)
[2024-01-13] MEDS: Sertraline 50 MG Tab PO SCH (09:57)
[2024-01-13] MEDS: Meloxicam 7.5 MG Tab PO SCH (09:57)
[2024-01-13] MEDS: Loratadine 10 MG Tab PO SCH (09:58)
[2024-01-13] MEDS: Metoprolol Succinate 50 MG Tab.ER PO SCH (09:58)
[2024-01-13] MEDS: Chlorthalidone 25 MG Tab PO SCH (09:58)
[2024-01-13] MEDS: oxyCODONE 5 MG Tab PO PRN (11:16)
[2024-01-13] MEDS: traMADol 50 MG Tab PO PRN (17:59)
[2024-01-13] MEDS: Sodium Zirconium Cyclosilicate 10 GM Packet PO ONE ×2 (18:58→19:28)
[2024-01-13] MEDS: Sodium Polystyrene Sulfonate 15 GM/60 ML Susp 60 ML Bot PO ONE ×2 (20:09→20:13)
[2024-01-14 04:42] LABS: HEMATOCRIT 28.9 % (37.0-47.0); HEMOGLOBIN 8.7 gm/dl (12.0-16.0); MEAN CORPUSCULAR HEMOGLOBIN 28.8 pg (28.0-32.0); MEAN CORPUSCULAR VOLUME 95.7 fl (83.0-99.0); RED BLOOD CELL COUNT 3.02 M/mm3 (4.10-5.30); WHITE BLOOD CELL COUNT,WBC 19.77 K/mm3 (3.9-11.3)
[2024-01-14 04:43] LABS: BASOPHILS ABSOLUTE AUTO 0.1 K/mm3 (0.0-0.2); BASOPHILS PERCENT AUTO 0.3 % (0.0-1.0); EOSINOPHILS ABSOLUTE AUTO 0.1 K/mm3 (0.0-0.4); EOSINOPHILS PERCENT AUTO 0.5 % (0.0-6.0); IMMATURE GRAN ABSOLUTE AUTO 0.63 K/mm3 (0.00-0.05); IMMATURE GRAN PERCENT AUTO 3.2 % (0.0-0.4); MEAN CORPUSCULAR HGB CONC 30.1 g/dl (32.0-36.0); MEAN PLATELET VOLUME 8.8 fl (9.4-12.3); MONOCYTES ABSOLUTE AUTO 0.7 K/mm3 (0.0-0.8); MONOCYTES PERCENT AUTO 3.3 % (0.0-8.0); NEUTROPHILS ABSOLUTE AUTO 17.3 K/mm3 (1.8-7.7); NEUTROPHILS PERCENT AUTO 87.7 % (41.0-71.0); PLATELET COUNT,PLT 374 K/mm3 (150-400)
[2024-01-14 05:09] LABS: ANION GAP 16.5 (5-15); BUN/CREATININE RATIO 22.7 (14-18); CALCIUM 8.6 mg/dL (8.5-10.1); CREATININE 1.1 mg/dL (0.55-1.02); EST CRCL DRUG DOSING (CG) 50.91 mL/min; POTASSIUM,K 4.5 mEq/L (3.5-5.1)
[2024-01-14 06:27] LABS: SLIDE REVIEW ABNORMAL SMEAR
[2024-01-15 04:52] LABS: BASOPHILS ABSOLUTE AUTO 0.1 K/mm3 (0.0-0.2); BASOPHILS PERCENT AUTO 0.4 % (0.0-1.0); EOSINOPHILS ABSOLUTE AUTO 0.2 K/mm3 (0.0-0.4); EOSINOPHILS PERCENT AUTO 1.2 % (0.0-6.0); HEMATOCRIT 30.9 % (37.0-47.0); HEMOGLOBIN 9.4 gm/dl (12.0-16.0); IMMATURE GRAN ABSOLUTE AUTO 0.46 K/mm3 (0.00-0.05); LYMPHOCYTES PERCENT AUTO 6.8 % (24.0-44.0); MEAN CORPUSCULAR HEMOGLOBIN 29.6 pg (28.0-32.0); MEAN CORPUSCULAR HGB CONC 30.4 g/dl (32.0-36.0); MEAN CORPUSCULAR VOLUME 97.2 fl (83.0-99.0); MEAN PLATELET VOLUME 9.1 fl (9.4-12.3); MONOCYTES ABSOLUTE AUTO 0.5 K/mm3 (0.0-0.8); MONOCYTES PERCENT AUTO 3.1 % (0.0-8.0); NEUTROPHILS ABSOLUTE AUTO 12.9 K/mm3 (1.8-7.7); NEUTROPHILS PERCENT AUTO 85.5 % (41.0-71.0); PLATELET COUNT,PLT 331 K/mm3 (150-400); RED BLOOD CELL COUNT 3.18 M/mm3 (4.10-5.30); WHITE BLOOD CELL COUNT,WBC 15.09 K/mm3 (3.9-11.3)
== END 2024-01-15 12:35 | disposition home or self-care (01) | DRG 603 ==
LOC: JD.ED 16:42 → JD.MS 19:21
PROVIDERS: ADMIT Internal Medicine; ATTEND Hospitalist
DX: L03.116 Cellulitis of left lower limb (principal); Z68.42 Body mass index [BMI] 45.0-49.9, adult; K21.9 Gastro-esophageal reflux disease without esophagitis; M17.12 Unilateral primary osteoarthritis, left knee; I10 Essential (primary) hypertension; Z96.659 Presence of unspecified artificial knee joint; E87.5 Hyperkalemia; E66.01 Morbid (severe) obesity due to excess calories; I89.0 Lymphedema, not elsewhere classified; I11.0 Hypertensive heart disease with heart failure; I50.810 Right heart failure, unspecified; I87.8 Other specified disorders of veins; Z91.048 Other nonmedicinal substance allergy status; Z89.611 Acquired absence of right leg above knee; Z88.0 Allergy status to penicillin; Z88.1 Allergy status to other antibiotic agents; Z88.8 Allergy status to other drugs, medicaments and biological substances; Z91.018 Allergy to other foods; Z88.2 Allergy status to sulfonamides; Z79.01 Long term (current) use of anticoagulants; Z79.899 Other long term (current) drug therapy; Z86.010 Personal history of colon polyps; Z87.19 Personal history of other diseases of the digestive system; Z85.43 Personal history of malignant neoplasm of ovary; Z85.118 Personal history of other malignant neoplasm of bronchus and lung; Z90.49 Acquired absence of other specified parts of digestive tract; Z98.84 Bariatric surgery status; Z90.710 Acquired absence of both cervix and uterus
CPT/HCPCS: 36415; 80048; 80053; 80202; 85025; 86140; 87040; 87641; 96374; 97110-GP; 97162-GP; 97530-GP; 99223; 99232; 99239; 99284-25; 99285; A9270-GY; J0692; J1644; J3370; J3490; J7030

== ENCOUNTER 2024-01-22 12:00 | Emergency (ER) | payer MEDICARE, MEDICAID ==
[2024-01-22] MEDS ORDERED: Sodium Chloride 0.9% 10 ML Syringe FLUSH PRN (12:23)
[2024-01-22 13:03] LABS: BASOPHILS ABSOLUTE AUTO 0.1 K/mm3 (0.0-0.2); EOSINOPHILS ABSOLUTE AUTO 0.2 K/mm3 (0.0-0.4); EOSINOPHILS PERCENT AUTO 1.9 % (0.0-6.0); HEMATOCRIT 36.1 % (37.0-47.0); HEMOGLOBIN 10.6 gm/dl (12.0-16.0); IMMATURE GRAN ABSOLUTE AUTO 0.11 K/mm3 (0.00-0.05); IMMATURE GRAN PERCENT AUTO 1.1 % (0.0-0.4); LYMPHOCYTES ABSOLUTE AUTO 0.9 K/mm3 (1.0-4.8); LYMPHOCYTES PERCENT AUTO 9.1 % (24.0-44.0); MEAN CORPUSCULAR HEMOGLOBIN 29.1 pg (28.0-32.0); MEAN CORPUSCULAR HGB CONC 29.4 g/dl (32.0-36.0); MEAN CORPUSCULAR VOLUME 99.2 fl (83.0-99.0); MEAN PLATELET VOLUME 8.6 fl (9.4-12.3); MONOCYTES ABSOLUTE AUTO 0.6 K/mm3 (0.0-0.8); MONOCYTES PERCENT AUTO 5.4 % (0.0-8.0); NEUTROPHILS ABSOLUTE AUTO 8.3 K/mm3 (1.8-7.7); NEUTROPHILS PERCENT AUTO 81.5 % (41.0-71.0); PLATELET COUNT,PLT 517 K/mm3 (150-400); RED BLOOD CELL COUNT 3.64 M/mm3 (4.10-5.30); WHITE BLOOD CELL COUNT,WBC 10.22 K/mm3 (3.9-11.3)
[2024-01-22 13:28] LABS: A/G RATIO 0.3 (1-2); BILIRUBIN TOTAL 0.1 mg/dL (0.2-1.0); BUN/CREATININE RATIO 24.3 (14-18); CALCIUM 9.1 mg/dL (8.5-10.1); CREATININE 1.4 mg/dL (0.55-1.02); EST CRCL DRUG DOSING (CG) 33.8 mL/min; PROTEIN TOTAL,TP 7.9 g/dl (6.4-8.2)
[2024-01-22 13:41] LABS: C-REACTIVE PROTEIN 10.43 mg/dL (<0.30)
[2024-01-22] MEDS: Sodium Polystyrene Sulfonate 15 GM/60 ML Susp 60 ML Bot PO ONE (14:32)
[2024-01-22] MEDS: Furosemide 40 MG Tab PO ONE (14:32)
[2024-01-22] MEDS: Clindamycin HCl 150 MG Cap PO ONE ×2 (16:52)
[2024-01-22 19:01] LABS: ANION GAP 18.8 (5-15); BUN/CREATININE RATIO 23.6 (14-18); CALCIUM 8.9 mg/dL (8.5-10.1); CREATININE 1.4 mg/dL (0.55-1.02); EST CRCL DRUG DOSING (CG) 33.8 mL/min; POTASSIUM,K 5.8 mEq/L (3.5-5.1)
== END 2024-01-22 19:44 ==
LOC: JD.ED 12:00
DX: L03.116 Cellulitis of left lower limb (principal); E87.5 Hyperkalemia; I10 Essential (primary) hypertension; E66.9 Obesity, unspecified; Z88.0 Allergy status to penicillin; Z88.2 Allergy status to sulfonamides; Z88.8 Allergy status to other drugs, medicaments and biological substances; Z91.048 Other nonmedicinal substance allergy status; Z79.899 Other long term (current) drug therapy; Z68.43 Body mass index [BMI] 50.0-59.9, adult
CPT/HCPCS: 36415; 80048; 80053; 85025; 86140; 93005; 93010; 99283; A9270-GY

== ENCOUNTER 2025-07-11 12:19 | Emergency (ER) | payer MEDICARE, MEDICAID ==
[2025-07-11] MEDS: Sodium Chloride 0.9% 10 ML Syringe FLUSH PRN (13:19)
[2025-07-11] MEDS: Ondansetron 4 MG/2 ML SDV IVPUSH ONE (13:19)
[2025-07-11 13:38] LABS: BASOPHILS ABSOLUTE AUTO 0.0 K/mm3 (0.0-0.2); BASOPHILS PERCENT AUTO 0.3 % (0.0-1.0); EOSINOPHILS ABSOLUTE AUTO 0.0 K/mm3 (0.0-0.4); EOSINOPHILS PERCENT AUTO 0.0 % (0.0-6.0); IMMATURE GRAN ABSOLUTE AUTO 0.06 K/mm3 (0.00-0.05); IMMATURE GRAN PERCENT AUTO 0.6 % (0.0-0.4); LYMPHOCYTES ABSOLUTE AUTO 0.6 K/mm3 (1.0-4.8); LYMPHOCYTES PERCENT AUTO 5.9 % (24.0-44.0); MEAN PLATELET VOLUME 12.4 fl (9.4-12.3); MONOCYTES ABSOLUTE AUTO 0.4 K/mm3 (0.0-0.8); MONOCYTES PERCENT AUTO 4.3 % (0.0-8.0); NEUTROPHILS ABSOLUTE AUTO 8.5 K/mm3 (1.8-7.7); NEUTROPHILS PERCENT AUTO 88.9 % (41.0-71.0); NRBC ABSOLUTE 0.30 (0.00-0.02); NRBC PERCENT 3.1 % (0.0-0.2); RED BLOOD CELL COUNT 5.02 M/mm3 (4.10-5.30); WHITE BLOOD CELL COUNT,WBC 9.55 K/mm3 (3.9-11.3)
[2025-07-11 13:39] LABS: PLATELET COUNT,PLT 216 K/mm3 (150-400)
[2025-07-11 14:00] LABS: A/G RATIO 0.5 (1-2); ALANINE AMINOTRANSFERASE,ALT 28.0 U/L (14-59); ASPARTATE AMNIOTRANSFERASE,AST 57.0 U/L (15-37); BILIRUBIN TOTAL 1.5 mg/dL (0.2-1.0); CARBON DIOXIDE,CO2 20.0 mEq/L (21-32); CHLORIDE,CL 79.0 mEq/L (98-107); CREATININE 6.4 mg/dL (0.55-1.02); EST CRCL DRUG DOSING (CG) 8.64 mL/min; ESTIMATED GFR 7.0 mL/min (>60); GLUCOSE RANDOM 75.0 mg/dL (70-99); PROTEIN TOTAL,TP 5.9 g/dl (6.4-8.2); SODIUM,NA 125.0 mEq/L (136-145)
[2025-07-11 14:03] LABS: POTASSIUM,K 3.2 mEq/L (3.5-5.1)
[2025-07-11] MEDS ORDERED: Iopamidol 612 MG/ML 100 ML Bottle IVPUSH ONE (14:26)
[2025-07-11] MEDS ORDERED: Sodium Chloride 0.9% 10 ML Syringe FLUSH PRN (14:26)
[2025-07-11 14:40] LABS: BLOOD UREA NITROGEN,BUN 228.0 mg/dL (7-18)
[2025-07-11 14:52] LABS: APPEARANCE,URINE TURBID (Clear); GLUCOSE,URINE NEGATIVE (Negative); OCCULT BLOOD,URINE NEGATIVE (Negative)
[2025-07-11 14:59] LABS: CREATINE KINASE,CK 350.0 U/L (26-192)
[2025-07-11 15:13] LABS: FINE GRANULAR CASTS,URINE TOO NUMEROUS TO CNT /lpf (0-5)
[2025-07-11 15:14] LABS: LACTIC ACID 2.2 mmol/L (0.4-2.0)
== END 2025-07-11 16:30 ==
LOC: JD.ED 12:19
DX: N17.9 Acute kidney failure, unspecified (principal); E87.1 Hypo-osmolality and hyponatremia; E87.6 Hypokalemia; I12.9 Hypertensive chronic kidney disease with stage 1 through stage 4 chronic kidney disease, or unspecified chronic kidney disease; N18.9 Chronic kidney disease, unspecified; K21.9 Gastro-esophageal reflux disease without esophagitis; E66.9 Obesity, unspecified; Z79.899 Other long term (current) drug therapy; Z88.0 Allergy status to penicillin; Z88.1 Allergy status to other antibiotic agents; Z88.2 Allergy status to sulfonamides; Z88.8 Allergy status to other drugs, medicaments and biological substances; Z91.048 Other nonmedicinal substance allergy status; Z68.42 Body mass index [BMI] 45.0-49.9, adult
CPT/HCPCS: 36415; 74176; 80053; 81001; 82550; 83605; 83690; 83735; 85025; 86140; 93005; 96361; 96374; 99285; C1758; J2405; J7030; 93010

== ENCOUNTER 2025-07-29 10:09 | Emergency (ER) | payer MEDICARE, MEDICAID ==
[2025-07-29 12:39] LABS: BASOPHILS ABSOLUTE AUTO 0.0 K/mm3 (0.0-0.2); BASOPHILS PERCENT AUTO 0.4 % (0.0-1.0); EOSINOPHILS ABSOLUTE AUTO 0.0 K/mm3 (0.0-0.4); EOSINOPHILS PERCENT AUTO 0.1 % (0.0-6.0); IMMATURE GRAN ABSOLUTE AUTO 0.10 K/mm3 (0.00-0.05); IMMATURE GRAN PERCENT AUTO 1.4 % (0.0-0.4); LYMPHOCYTES ABSOLUTE AUTO 0.7 K/mm3 (1.0-4.8); LYMPHOCYTES PERCENT AUTO 9.2 % (24.0-44.0); MEAN PLATELET VOLUME 11.9 fl (9.4-12.3); MONOCYTES ABSOLUTE AUTO 0.2 K/mm3 (0.0-0.8); MONOCYTES PERCENT AUTO 2.8 % (0.0-8.0); NEUTROPHILS ABSOLUTE AUTO 6.2 K/mm3 (1.8-7.7); NEUTROPHILS PERCENT AUTO 86.1 % (41.0-71.0); NRBC ABSOLUTE 0.37 (0.00-0.02); NRBC PERCENT 5.2 % (0.0-0.2); RED BLOOD CELL COUNT 3.81 M/mm3 (4.10-5.30); WHITE BLOOD CELL COUNT,WBC 7.16 K/mm3 (3.9-11.3)
[2025-07-29 12:40] LABS: A/G RATIO 0.3 (1-2); ALANINE AMINOTRANSFERASE,ALT 37 U/L (14-59); ASPARTATE AMNIOTRANSFERASE,AST 44 U/L (15-37); BILIRUBIN TOTAL 0.7 mg/dL (0.2-1.0); BLOOD UREA NITROGEN,BUN 21 mg/dL (7-18); CARBON DIOXIDE,CO2 29 mEq/L (21-32); CHLORIDE,CL 104 mEq/L (98-107); CREATINE KINASE,CK 36 U/L (26-192); CREATININE 2.3 mg/dL (0.55-1.02); EST CRCL DRUG DOSING (CG) 21.61 mL/min; ESTIMATED GFR 24 mL/min (>60); GLUCOSE RANDOM 112 mg/dL (70-99); PROTEIN TOTAL,TP 5.2 g/dl (6.4-8.2); SODIUM,NA 142 mEq/L (136-145)
[2025-07-29 13:00] LABS: POTASSIUM,K 4.5 mEq/L (3.5-5.1)
[2025-07-29 13:34] LABS: PLATELET COUNT,PLT 127 K/mm3 (150-400)
[2025-07-29] MEDS: VANCOmycin 2 GM/400 ML 2 GM in Premix Bag 1 BAG IV ONE (13:35)
== END 2025-07-29 14:30 ==
LOC: JD.ED 10:09
DX: L03.311 Cellulitis of abdominal wall (principal); I10 Essential (primary) hypertension; K21.9 Gastro-esophageal reflux disease without esophagitis; N17.9 Acute kidney failure, unspecified; Z99.2 Dependence on renal dialysis; E66.01 Morbid (severe) obesity due to excess calories; Z88.8 Allergy status to other drugs, medicaments and biological substances; Z88.0 Allergy status to penicillin; Z79.899 Other long term (current) drug therapy; Z68.43 Body mass index [BMI] 50.0-59.9, adult
CPT/HCPCS: 36415; 80053; 82550; 83605; 83690; 83735; 85025; 85652; 86140; 87040; 87154; 96365; 96372; 99285; 99285-25; A9270-GY; J0692; J3375

== ENCOUNTER 2025-08-30 09:52 | Inpatient (IN) | payer MEDICARE, MEDICAID ==
[2025-08-30] MEDS ORDERED: Sodium Chloride 0.9% 10 ML Syringe FLUSH PRN (10:05)
[2025-08-30] MEDS: Norepinephrine Bit/0.9% NaCl 4 MG/250 ML BAG IV SCH (10:35)
[2025-08-30 10:49] LABS: BASE EXCESS ARTERIAL -4.8 (-2-2.0); BICARBONATE,ARTERIAL 20.5 meq/L (22.0-26.0); O2 SATURATION ARTERIAL 30.6 % (96.0-97.0); PCO2 ARTERIAL 38.0 mmHg (35.0-45.0); PO2 ARTERIAL 25.0 mmHg (80.0-100.0)
[2025-08-30 11:12] LABS: BASOPHILS ABSOLUTE AUTO 0.0 K/mm3 (0.0-0.2); BASOPHILS PERCENT AUTO 0.3 % (0.0-1.0); EOSINOPHILS ABSOLUTE AUTO 0.0 K/mm3 (0.0-0.4); EOSINOPHILS PERCENT AUTO 0.0 % (0.0-6.0); IMMATURE GRAN ABSOLUTE AUTO 0.13 K/mm3 (0.00-0.05); IMMATURE GRAN PERCENT AUTO 0.9 % (0.0-0.4); LYMPHOCYTES ABSOLUTE AUTO 1.4 K/mm3 (1.0-4.8); LYMPHOCYTES PERCENT AUTO 9.2 % (24.0-44.0); MEAN PLATELET VOLUME 11.6 fl (9.4-12.3); MONOCYTES ABSOLUTE AUTO 0.2 K/mm3 (0.0-0.8); MONOCYTES PERCENT AUTO 1.2 % (0.0-8.0); NEUTROPHILS ABSOLUTE AUTO 13.3 K/mm3 (1.8-7.7); NEUTROPHILS PERCENT AUTO 88.4 % (41.0-71.0); NRBC ABSOLUTE 0.50 (0.00-0.02); NRBC PERCENT 3.3 % (0.0-0.2); PLATELET COUNT,PLT 102 K/mm3 (150-400); RED BLOOD CELL COUNT 2.72 M/mm3 (4.10-5.30); WHITE BLOOD CELL COUNT,WBC 15.05 K/mm3 (3.9-11.3)
[2025-08-30 11:28] LABS: INR 1.75
[2025-08-30 11:36] LABS: A/G RATIO 0.3 (1-2); ALANINE AMINOTRANSFERASE,ALT 10 U/L (14-59); ASPARTATE AMNIOTRANSFERASE,AST 57 U/L (15-37); BILIRUBIN TOTAL 0.9 mg/dL (0.2-1.0); BLOOD UREA NITROGEN,BUN 26 mg/dL (7-18); CARBON DIOXIDE,CO2 18 mEq/L (21-32); CHLORIDE,CL 101 mEq/L (98-107); CREATINE KINASE,CK 22 U/L (26-192); CREATININE 2.8 mg/dL (0.55-1.02); ESTIMATED GFR 19 mL/min (>60); GLUCOSE RANDOM 91 mg/dL (70-99); POTASSIUM,K 4.3 mEq/L (3.5-5.1); PROTEIN TOTAL,TP 4.6 g/dl (6.4-8.2); SODIUM,NA 140 mEq/L (136-145); TSH 4.947 uIU/mL (0.358-3.74)
[2025-08-30 11:43] LABS: ETHANOL BLOOD MEDICAL 0.00 gm% (0.00); TROPONIN I HIGH SENSITIVITY 189 pg/mL (<=51)
[2025-08-30] MEDS ORDERED: [UNRECOGNIZED DRUG - OTHER] IV SCH (11:45)
[2025-08-30] MEDS ORDERED: EPINEPHRINE 4 MG/250 ML IV SCH (11:45)
[2025-08-30 11:46] LABS: LACTIC ACID 10.6 mmol/L (0.4-2.0)
[2025-08-30 12:07] LABS: T4 FREE 0.44 ng/dL (0.76-1.46)
[2025-08-30] MEDS: metroNIDAZOLE/Normal Saline 500 MG in Premix Bag 1 BAG IV ONE (12:18)
[2025-08-30] MEDS: cefTRIAXone 1 GM in Water For Injection, Sterile 10 ML IVPUSH ONE ×2 (12:18→18:26)
[2025-08-30] MEDS ORDERED: LORazepam 2 MG/ML SDV IM PRN (18:14)
[2025-08-30] MEDS ORDERED: Ondansetron 4 MG/2 ML SDV IVPUSH PRN (18:14)
[2025-08-30] MEDS ORDERED: Lactoperoxi/Gluc Oxid/Pot Thio 42 GM Tube MUCMEM PRN (18:14)
== END 2025-08-30 19:26 | disposition expired | DRG 951 ==
LOC: JD.ED 09:52 → JD.MS 16:52
PROVIDERS: ADMIT Family Medicine; ATTEND Family Medicine
PROC: 4A033R1 Measurement of Arterial Saturation, Peripheral, Percutaneous Approach (ICD-10-PCS; principal; 2025-08-30)
PROC: 3E03329 Introduction of Other Anti-infective into Peripheral Vein, Percutaneous Approach (ICD-10-PCS; 2025-08-30)
PROC: 3E033XZ Introduction of Vasopressor into Peripheral Vein, Percutaneous Approach (ICD-10-PCS; 2025-08-30)
DX: J96.91 Respiratory failure, unspecified with hypoxia (principal); Z51.5 Encounter for palliative care; R41.0 Disorientation, unspecified; R40.4 Transient alteration of awareness; R19.5 Other fecal abnormalities; R74.02 Elevation of levels of lactic acid dehydrogenase [LDH]; R79.89 Other specified abnormal findings of blood chemistry; N18.6 End stage renal disease; I10 Essential (primary) hypertension; I26.99 Other pulmonary embolism without acute cor pulmonale; Z88.0 Allergy status to penicillin; J96.90 Respiratory failure, unspecified, unspecified whether with hypoxia or hypercapnia; I12.0 Hypertensive chronic kidney disease with stage 5 chronic kidney disease or end stage renal disease; G93.40 Encephalopathy, unspecified; E87.20 Acidosis, unspecified; Z68.43 Body mass index [BMI] 50.0-59.9, adult; Z66 Do not resuscitate; H54.7 Unspecified visual loss; K21.9 Gastro-esophageal reflux disease without esophagitis; E66.9 Obesity, unspecified; M19.90 Unspecified osteoarthritis, unspecified site; Z96.659 Presence of unspecified artificial knee joint; I95.9 Hypotension, unspecified; Z99.2 Dependence on renal dialysis; Z88.1 Allergy status to other antibiotic agents; Z88.8 Allergy status to other drugs, medicaments and biological substances; Z88.2 Allergy status to sulfonamides; Z91.048 Other nonmedicinal substance allergy status; Z79.891 Long term (current) use of opiate analgesic; Z79.899 Other long term (current) drug therapy; Z87.19 Personal history of other diseases of the digestive system; Z86.0100 Personal history of colon polyps, unspecified; Z85.43 Personal history of malignant neoplasm of ovary; Z85.118 Personal history of other malignant neoplasm of bronchus and lung
CPT/HCPCS: 36415; 36600; 70450; 71045; 71250; 72125; 74176; 80053; 80307; 82140; 82272; 82550; 82803; 83605 ×2; 83690; 83735; 83880; 84439; 84443; 84484; 85025; 85610; 86850; 86900; 86901; 87040; 87428; 93005; J0168; J0696; J7030; 99223; J1836